=== PATIENT | female | born 1940 | race Caucasian/White ===

== ENCOUNTER 2017-03-21 14:22 | Emergency (ER) | payer MEDICARE ==
[~2017-03-21] VITALS: Ht 154.9 cm; Wt 85.9 kg
[2017-03-21 14:23] VITALS: BP 149/74; PULSE 91; RESP 22; O2SAT 92
--- NOTE | 2017-03-21 14:35 | ED.REPORT ---
HPI-Dyspnea / Wheezing Date of Service Mar 21, 2017 ED Provider: History of Present Illness: 76-year-old female here with a history of COPD with a COPD exacerbation and shortness of breath 2 days. At home they had her on up to 6 L to maintain 90%. She is usually on 2-3 L. She is coughing with minimal sputum production. Her cough is increased from her baseline. She does not have fever, nausea, vomiting and she has no chest pain. She has been intubated in the past for copd. She has done all her usual COPD meds. The albuterol seems to help for a little bit but she is continuing to have shortness of breath. Her symptoms worsen with movement and activity. Recently on 5 days of prednisone finished it a few days ago Nursing Notes Stated Complaint: SOB Chief Complaint: Respiratory Distress Nursing Notes Reviewed: Yes Allergies: Coded Allergies: morphine (Verified Allergy, Intermediate, 03/21/17) Scheduled Levofloxacin (Levaquin) 750 Mg Tablet 750 MG PO DAILY Prednisone (PredniSONE) 20 Mg Tablet 20 MG PO BID General Time Seen by MD: 14:34 Chief Complaint Shortness of breath, Wheezing Hx Obtained From: Patient, Spouse Arrived By: Walk-in Onset Occurred: 2 days ago Symptom Duration: Waxes and wanes Location: : None Recent Healthcare: Recent doctor visit Similar Sx Previous: Yes Past Medical History Past Medical History Notes: diabetes copd Review of Systems Review of Systems Note: SOB, wheezing. Basic Review of Systems GI: No abdominal pain, No anorexia, No nausea, No vomiting Neurologic: NL mental status, No weakness, No numbness Psychiatric: Normal thought content Constitutional: Denies: Chills, Fatigue, Fever Cardiovascular: Reports: Dyspnea on exertion, Denies: Chest pain Complete sys rev & neg: except as marked. Physical Exam Initial Vital Signs Vital Signs (First) Date Time Temp Pulse Resp B/P Pulse Ox O2 Delivery O2 Flow Rate FiO2 03/21/17 14:23 37.0 91 22 149/74 92 Nasal Cannula 6 Initial VS: Reviewed, Vital signs abnormal General/Constitutional: Awake, Alert speaking 4-5 word sentences Neck: Atraumatic, Supple, No meningismus, Full range of motion, No swelling, Non-tender, No masses Respiratory / Chest: Atraumatic Wheezing / Retractions: Positive: Wheeze insp/exp diffuse, Wheezing severe Cardiovascular: Heart rate NL, Regular rhythm, Heart sounds NL, Peripheral circulation NL Abdomen: Soft, Non-tender, No guarding, No rebound Skin: Color NL, No rash, Warm, Dry, Turgor NL Interpretation & Diagnostics Interpretation & Diagnostics: PROCEDURE: X-RAY CHEST ONE VIEW, PORTABLE ([id number]) INDICATIONS: sob TECHNIQUE: One view of the chest was acquired. COMPARISON: None. FINDINGS: Surgical changes and devices: None. Lungs and pleura: Bibasilar opacity may be infiltrates or atelectasis. No pleural effusions or pneumothorax. Lungs are clear. Mediastinum: Mediastinal contours appear normal. Heart size is normal. Bones and chest wall: No suspicious bony lesions. Overlying soft tissues appear unremarkable. IMPRESSION: Bibasilar infiltrates or atelectasis. Lab Results Interpretation Result Diagram: 03/21/17 1441 03/21/17 1441 Test 03/21/17 14:41 White Blood Count 7.4th/mm3 (3.8-10.1) Red Blood Count 4.70mil/mm3 (3.90-5.20) Hemoglobin 11.8g/dL (12.0-15.6) Hematocrit 40.3% (35.0-46.0) Mean Corpuscular Volume 85.7fL (81-100) Mean Corpuscular Hemoglobin 25.1pg (27.0-35.0) Mean Corpuscular Hemoglobin Concent 29.3% (32.0-37.0) Red Cell Distribution Width 17.1% (12.3-15.4) Platelet Count 269bil/L (150-400) Neutrophils (%) (Auto) 76.3% (40-74) Lymphocytes (%) (Auto) 7.7% (14-46) Monocytes (%) (Auto) 12.4% (4-12) Eosinophils (%) (Auto) 3.0% (0-5) Basophils (%) (Auto) 0.5% (0-3) Sodium Level 140mEq/L (134-144) Potassium Level 4.7mEq/L (3.5-5.2) Chloride Level 98mEq/L (97-108) Carbon Dioxide Level 26mmol/L (18-29) Blood Urea Nitrogen 15mg/dL (8-27) Creatinine 0.61mg/dL (0.57-1.00) Estimat Glomerular Filtration Rate 137mL/min (>59) Glucose Level 126mg/dL (60-99) Calcium Level 9.4mg/dL (8.5-10.1) Magnesium Level 1.6mg/dL (1.6-2.6) Total Bilirubin 0.2mg/dL (0.0-1.2) Aspartate Amino Transf (AST/SGOT) 21U/L (0-50) Alanine Aminotransferase (ALT/SGPT) 16U/L (0-32) Alkaline Phosphatase 106U/L (25-165) Troponin T < 0.010ug/L (0.0-0.011) Pro-B-Type Natriuretic Peptide 114.2pg/mL (0-738) Total Protein 7.3g/dL (6.4-8.4) Albumin 3.7g/dL (3.4-5.0) Re-Eval/Medical Decision Med Decision/Clinical Course Lung sounds not much improved order continuous neb. 1944- patient states she feels improved, just about at her baseline. She runs 92% on a few liters at home and the slit she has been setting here heart rate is still elevated between 90 and 100 she states this is her norm. Her lungs still have wheezes throughout. Discussed results of x-ray, will start on an antibiotic, has home nebs. Discussed red flags and when to return. Differential Diagnosis: Positive: COPD exacerbation, Pneumonia Discharge & Departure Impression: Primary Impression: COPD exacerbation Additional Impression: Pneumonia Pneumonia type: due to unspecified organism Laterality: bilateral Lung location: unspecified part of lung Qualified Code: J18.9 - Pneumonia, unspecified organism Disposition: Home Discharge Condition All VS Reviewed: Yes Condition: Stable Patient Instructions: Bacterial Pneumonia (DC), COPD (Chronic Obstructive Pulmonary Disease) (ED) Additional Instructions: Take antibiotics as prescribed, using inhalers as prescribed. Return immediately if fevers, increased shortness of breath, chest pain, altered mental status or any worsening in condition at all. Take your prednisone twice a day as discussed as well, start this tomorrow. Follow-up with your PCP or electric razor assembler in one to 2 days. Referrals: OTHER,PHYSICIAN (PCP) Joshua Montesinos EDSupervising Provider for APC: Varun Hwang MD copies to: Joshua Montesinos Linnea K ARNP Mar 21, 2017 14:35
[2017-03-21] MEDS ORDERED: Albuterol-Ipratropium 3 mL Inhalation Solution NEB ONE (14:45)
[2017-03-21] MEDS ORDERED: MethylprednisoLONE Sodium Succinate 62.5 mg/mL 2 mL Inj IVPUSH ONE (14:45)
[2017-03-21 14:54] LABS: BASOPHILS % (AUTO) 0.5 % (0-3); MONOCYTES % (AUTO) 12.4 % (4-12); Mean Corpuscular Hemoglobin 25.1 pg (27.0-35.0); Mean Corpuscular Volume 85.7 fL (81-100); NEUTROPHILS % (AUTO) 76.3 % (40-74); Platelet Count 269 bil/L (150-400)
[2017-03-21 15:18] LABS: Magnesium 1.6 mg/dL (1.6-2.6)
[2017-03-21 15:20] LABS: TROPONIN T < 0.010 ug/L (0.0-0.011)
[2017-03-21] MEDS ORDERED: Albuterol 2.5 mg/3 mL Inhalation Solution NEB ONE ×2 (15:50→16:50)
[2017-03-21 16:56] VITALS: PULSE 89; RESP 22; O2SAT 95
[2017-03-21 17:21] VITALS: BP 105/55; PULSE 95; RESP 16; O2SAT 90
--- NOTE | 2017-03-21 19:01 | DRSVH ---
PROCEDURE: X-RAY CHEST ONE VIEW, PORTABLE ([id number]) INDICATIONS: sob TECHNIQUE: One view of the chest was acquired. COMPARISON: None. FINDINGS: Surgical changes and devices: None. Lungs and pleura: Bibasilar opacity may be infiltrates or atelectasis. No pleural effusions or pneum othorax. Lungs are clear. Mediastinum: Mediastinal contours appear normal. Heart size is normal. Bones and chest wall: No suspicious bony lesions. Overlying soft tissues appear unremarkable. IMPRESSION: Bibasilar infiltrates or atelectasis. Dictated by: Jose Vázquez M.D. on 03/21/2017 at 18:59 Approved by: Jose Vázquez M.D. on 03/21/2017 at 18:59
[2017-03-21 19:57] VITALS: BP 132/95; PULSE 108; RESP 20; O2SAT 92
[2017-03-21] MEDS ORDERED: levoFLOXacin 750 mg Tablet PO ONE (20:05)
[2017-03-21] MEDS ORDERED: LEVO750T9 PO (20:10)
[2017-03-21] MEDS ORDERED: PRE20 PO (20:11)
== END 2017-03-21 20:18 | disposition home or self-care (01) ==
LOC: SED 14:22
DX: J44.1 Chronic obstructive pulmonary disease with (acute) exacerbation (principal); J18.9 Pneumonia, unspecified organism; E11.9 Type 2 diabetes mellitus without complications; Z88.5 Allergy status to narcotic agent; Z79.899 Other long term (current) drug therapy
CPT/HCPCS: 71010; 80053; 83735; 83880; 84484; 85025; 93005; 94644; 96374; 99285; G0463; J2930; J7613; J7620

== ENCOUNTER 2017-03-23 15:15 | Inpatient (IN) | payer MEDICARE ==
[~2017-03-23] VITALS: Ht 154.9 cm; Wt 87.0 kg
[~2017-03-23 15:15] MED LIST: LEVO750T9 PO; PRE20 PO
[2017-03-23 15:18] VITALS: BP 147/79; PULSE 92; RESP 24; O2SAT 89
--- NOTE | 2017-03-23 16:00 | ED.REPORT ---
HPI-Dyspnea / Wheezing Date of Service Mar 23, 2017 ED Provider: Stan Castro MD A 76 year old female with a history of COPD, diabetes mellitus, and previous admission for pneumonia requiring intubation presents to the ED complaining of SOB that began 5 days ago. She reports recent non productive cough that developed into a productive cough with clear sputum over the past few days. Patient is typically on 2-3L of O2 and is currently on 5 L of home O2. She last used her nebulizer this morning. Patient was seen in the ED on 03/21 for similar symptoms and was discharged with antibiotics. She has been taking antibiotics as prescribed. Patient denies any fevers, chills, nausea, rhinorrhea or chest pain. Nursing Notes Stated Complaint: COPD EXACERBATION Chief Complaint: Respiratory Distress Nursing Notes Reviewed: Yes Allergies: Coded Allergies: morphine (Verified Allergy, Intermediate, itchy rash all over body, ) Scheduled Albuterol Neb Soln (Albuterol Neb Soln) 2.5 Mg/3 Ml Vial.neb 2.5 MG INHALATION BID Amlodipine (Amlodipine) 5 Mg Tablet 5 MG PO QAM Budesonide (Budesonide) 1 Mg/2 Ml Ampul.neb 1 MG IH BID Bupropion ER (Bupropion ER) 200 Mg Tablet.er 200 MG PO BID Insulin Glargine,Hum.rec.anlog (Toujeo Solostar) 300 Unit/Ml (1.5 Ml) Insuln.pen 140 UNIT SQ HS Levofloxacin (Levaquin) 750 Mg Tablet 750 MG PO DAILY Liraglutide (Victoza 3-Keagan) 0.6 Mg/0.1 Ml Pen.injctr 0.6 MG SQ HS Metformin ER (Metformin ER) 500 Mg Tablet 1,000 MG PO BIDWM Metoprolol Tartrate (Metoprolol Tartrate) 25 Mg Tablet 25 MG PO QAM Omeprazole (Omeprazole) 20 Mg Capsule.dr 20 MG PO QAM Pramipexole Dihydrochloride (Mirapex) 0.25 Mg Tablet 0.25 MG PO BIDWM PRAMIPEXOLE 0.25 MG (1 TABLET) IN AM AND AFTERNOON AND 0.5 MG (2 TABLET)AT HS Pramipexole Dihydrochloride (Pramipexole Dihydrochloride) 0.25 Mg Tablet 0.5 MG PO HS PRAMIPEXOLE 0.25 MG (1 TABLET) IN AM AND AFTERNOON AND 0.5 MG (2 TABLET)AT HS Pravastatin (Pravastatin) 80 Mg Tablet 80 MG PO HS Prednisone (PredniSONE) 20 Mg Tablet 20 MG PO BIDWM Tiotropium [place] (Spiriva) 18 Mcg Cap.w.dev 18 MCG IH QAM Scheduled PRN Clobetasol Propionate (Clobetasol Propionate) 50 Ml Solution 1 APPLIC TP DAILY PRN PRN DRY PATCH TO DRY PATCH ON SCALP Dextran 70/Hypromellose/Pf (Artificial Tears Drops) 1 Each Droperette 2 DROP BOTH_EYES Q2H PRN PRN DRY EYES Furosemide (Furosemide) 40 Mg Tablet 40 MG PO QAM PRN PRN EDEMA Ibuprofen (Ibuprofen) 200 Mg Capsule 400 MG PO DAILY PRN PRN For Headache General Time Seen by MD: 15:55 Chief Complaint Shortness of breath Hx Obtained From: Patient Arrived By: Walk-in Sudden in Onset?: No Onset Occurred: 5 days ago Symptom Duration: Since onset Location: : None Associated with: Reports: Cough, Denies: Chest pain, Fever, Nasal congestion Pertinent Negative: Pt denies other symptoms Recent Healthcare: No recent doctor visit, No recent hospitalization Past Medical History Past Medical History Diabetes mellitus COPD Pneumonia x2 requiring hospitalization and intubation Obesity Denies: Congestive heart failure Past Surgical History Valve replacement Smoking History Former Smoker (2005) Social History Other Social History: Good social support, Local resident Ambulatory Status Independent Review of Systems Constitutional: Denies: Chills, Fever Ears / Nose / Throat: Denies: Nasal congestion Respiratory: Reports: Non-productive cough, Prod cough, clear, Shortness of breath, Wheezing Cardiovascular: Denies: Chest pain Complete sys rev & neg: except as marked. Physical Exam Initial Vital Signs Vital Signs (First) Date Time Temp Pulse Resp B/P Pulse Ox O2 Delivery O2 Flow Rate FiO2 03/23/17 15:18 37.5 92 24 147/79 89 Nasal Cannula 5 Initial VS: Reviewed Head / Eyes: Atraumatic, Normocephalic, PERRL Extremities: Vascular intact, Neuro intact, No swelling, No tenderness Skin: Warm, Dry, No cyanosis Neurologic: Alert, Oriented, Nonfocal Psychiatric: Mood/affect normal, Behavior normal, Normal thought content General/Constitutional: Awake, Alert, Well appearing, Well developed Neck: Atraumatic, Supple, Full range of motion Respiratory / Chest: Atraumatic, Breath sounds = bilat Wheezing / Retractions: Positive: Wheeze insp/exp diffuse (Bilateral ) Cardiovascular: Heart rate NL, Regular rhythm, Heart sounds NL, No murmurs Abdomen: Atraumatic, Soft, Non-tender, No guarding, No rebound Interpretation & Diagnostics Lab Results Interpretation Result Diagram: 03/23/17 1645 03/23/17 1645 Test 03/23/17 16:45 White Blood Count 8.3th/mm3 (3.8-10.1) Red Blood Count 4.59mil/mm3 (3.90-5.20) Hemoglobin 11.6g/dL (12.0-15.6) Hematocrit 39.5% (35.0-46.0) Mean Corpuscular Volume 86.1fL (81-100) Mean Corpuscular Hemoglobin 25.3pg (27.0-35.0) Mean Corpuscular Hemoglobin Concent 29.4% (32.0-37.0) Red Cell Distribution Width 17.0% (12.3-15.4) Platelet Count 292bil/L (150-400) Neutrophils (%) (Auto) 79.3% (40-74) Lymphocytes (%) (Auto) 12.4% (14-46) Monocytes (%) (Auto) 7.0% (4-12) Eosinophils (%) (Auto) 0.6% (0-5) Basophils (%) (Auto) 0.5% (0-3) Sodium Level 138mEq/L (134-144) Potassium Level 5.0mEq/L (3.5-5.2) Chloride Level 95mEq/L (97-108) Carbon Dioxide Level 27mmol/L (18-29) Blood Urea Nitrogen 24mg/dL (8-27) Creatinine 0.77mg/dL (0.57-1.00) Estimat Glomerular Filtration Rate 104mL/min (>59) Glucose Level 89mg/dL (60-99) Calcium Level 9.8mg/dL (8.5-10.1) Magnesium Level 1.6mg/dL (1.6-2.6) Total Bilirubin 0.2mg/dL (0.0-1.2) Aspartate Amino Transf (AST/SGOT) 21U/L (0-50) Alanine Aminotransferase (ALT/SGPT) 17U/L (0-32) Alkaline Phosphatase 97U/L (25-165) Troponin T < 0.010ug/L (0.0-0.011) Pro-B-Type Natriuretic Peptide 205.5pg/mL (0-738) Total Protein 7.1g/dL (6.4-8.4) Albumin 3.6g/dL (3.4-5.0) Procalcitonin 0.07ng/mL (0.00-0.08) Hold Whitman Top Tube Received (Received) ECG Interpretation ECG Interpretation: Sinus Rhythm Rate 90 No STT changes Q wave in V1 unchanged from prior Time: 04:22 Interpreted by: ED physician X-Ray Chest Interpretation Chest Xray Interpretation: IMPRESSION: Slight improvement in previous bibasilar opacities with persistent linear opacities. The latter likely represents atelectasis. Persistent. The bibasilar opacities including within the retrocardiac region are suspicious for infiltrates. Dictated by: Gina Newell M.D. on 03/23/2017 at 16:45 Interpretation / Wet Read by: Interpret - Radiologist Re-Eval/Medical Decision Med Decision/Clinical Course 76-year-old female history of COPD presenting with pneumonia. She is on 2-3 L oxygen at home with sats ranging from 88-92 at baseline. Reports 4 days of cough and dyspnea. She is requiring 5 L to sat within 88-92% range. She has a bibasilar pneumonia. She was started on Levaquin 2 days ago. She refuses to be admitted at that time. She is now requesting admission. We will admit for pneumonia given increasing oxygen requirements. Given Rocephin and azithromycin. Blood cultures sent. Also with wheezing on exam. Given Solu-Medrol to cover for COPD exacerbation. Re-Evaluation/Progress : Time of Eval: 16:17 )( Re-Eval Resp / Chest: Moderate wheezing Re-Evaluation/Progress Note: Patient is rechecked. She is informed of her results and diagnosis. All questions about the intended treatment plan are addressed. She understands and agrees with the plan. Consultation : Referral / Consult Name: Rasta Mercado Consulted With: Hospitalist Call Returned at: 17:54 Medical Associate: Will see patient, Agrees with eval, Agrees with plan, Accepts admit Counseled Regarding: Diagnosis, Lab results, Need for admission Discharge & Departure Impression: Primary Impression: Pneumonia Pneumonia type: due to unspecified organism Laterality: bilateral Lung location: lower lobe of lung Qualified Code: J18.9 - Pneumonia, unspecified organism Additional Impression: COPD exacerbation Disposition: ADMITTED TO HOSPITAL Discharge Condition All VS Reviewed: Yes Condition: Stable Referrals: Joshua Montesinos (PCP) Christine Attestation Portions of this note were transcribed by Keenan Weller. I, Dr. Castro personally performed the history, physical exam and medical decision-making; I reviewed and confirmed the accuracy of the information in the transcribed note. Signed by: Chirstine Cruz, 03/23/17 1560. copies to: Joshua Montesinos Ben M MD Mar 23, 2017 16:00 KEENAN WELLER Mar 23, 2017 16:06
[2017-03-23] MEDS ORDERED: cefTRIAXone Inj 2,000 MG in Dextrose 5% Minibag Plus 50 ML IV ONE (16:10)
[2017-03-23] MEDS ORDERED: Azithromycin Inj 500 MG in Dextrose 5% w/Vial Mate 250 ML IV ONE (16:10)
[2017-03-23] MEDS ORDERED: MethylprednisoLONE Sodium Succinate 62.5 mg/mL 2 mL Inj IVPUSH ONE (16:10)
[2017-03-23] MEDS ORDERED: Albuterol-Ipratropium 3 mL Inhalation Solution NEB ONE (16:10)
[2017-03-23 16:40] VITALS: PULSE 89; RESP 20; O2SAT 90
--- NOTE | 2017-03-23 16:47 | DRSVH ---
PROCEDURE: X-RAY CHEST, TWO VIEWS ([id number]) INDICATIONS: SOB - DIAGNOSIS PNEUM TECHNIQUE: 2 views of the chest were acquired. COMPARISON: [facility], CR, XR CHEST 1VW (PORTABLE), 03/21/2017, 15:10. FINDINGS: Surgical changes and devices: Prosthetic valve is noted. Lungs and pleura: Linear areas of opacity are present within the bases bilaterally. Previous appearan ce of bibasilar opacities appear slightly improved, with with the persistence of a retrocardiac opaci ty. Mediastinum: Mediastinal contours are normal. Heart size is normal. Bones and chest wall: No suspicious bony abnormalities. Soft tissues appear unremarkable. IMPRESSION: Slight improvement in previous bibasilar opacities with persistent linear opacities. The latter likely represents atelectasis. Persistent. The bibasilar opacities including within the retroc ardiac region are suspicious for infiltrates. Dictated by: Gina Newell M.D. on 03/23/2017 at 16:45 Approved by: Gina Newell M.D. on 03/23/2017 at 16:46
[2017-03-23 16:59] LABS: BASOPHILS % (AUTO) 0.5 % (0-3); EOSINOPHILS % (AUTO) 0.6 % (0-5); Mean Corpuscular Hemoglobin 25.3 pg (27.0-35.0); Mean Corpuscular Volume 86.1 fL (81-100); NEUTROPHILS % (AUTO) 79.3 % (40-74); Platelet Count 292 bil/L (150-400)
[2017-03-23] MEDS ORDERED: PRE20 PO (17:10)
[2017-03-23] MEDS ORDERED: PRAM0.252 PO (17:10)
[2017-03-23] MEDS ORDERED: PRAM0.256 PO (17:10)
[2017-03-23 17:26] LABS: TROPONIN T < 0.010 ug/L (0.0-0.011)
[2017-03-23] MEDS ORDERED: BUDE1AMP2 IH (17:28)
[2017-03-23] MEDS ORDERED: OMEP20CA11 PO (17:28)
[2017-03-23] MEDS ORDERED: BUPR200T PO (17:28)
[2017-03-23] MEDS ORDERED: CLOB50SO TP (17:28)
[2017-03-23] MEDS ORDERED: PRAV80TA2 PO (17:28)
[2017-03-23] MEDS ORDERED: TIOT18CA3 IH (17:28)
[2017-03-23] MEDS ORDERED: ALBU2.5V4 INHALATION (17:28)
[2017-03-23] MEDS ORDERED: METF500T7 PO (17:28)
[2017-03-23] MEDS ORDERED: AMLO5TAB2 PO (17:31)
[2017-03-23] MEDS ORDERED: INSU300I SQ (17:31)
[2017-03-23] MEDS ORDERED: METO50TA3 PO (17:31)
[2017-03-23] MEDS ORDERED: LIRA0.6P2 SQ (17:31)
[2017-03-23] MEDS ORDERED: METO25TA6 PO (17:32)
[2017-03-23] MEDS ORDERED: FURO40TA4 PO (17:33)
[2017-03-23] MEDS ORDERED: IBUP200C PO (17:34)
[2017-03-23] MEDS ORDERED: DEXT1DRO8 BOTH_EYES (17:34)
[2017-03-23] MEDS ORDERED: Alum-Mag Hydrox-Simeth 30 mL Suspension PO PRN ×2 (17:55→20:40)
[2017-03-23] MEDS ORDERED: Ondansetron 2 mg/mL 2 mL Inj IVPUSH PRN (17:55)
[2017-03-23 18:03] VITALS: BP 129/71; PULSE 88; RESP 19; O2SAT 88
[2017-03-23 18:25] VITALS: BP 136/72; PULSE 88; RESP 23; O2SAT 89
[2017-03-23 19:20] VITALS: BP 133/68; PULSE 98; O2SAT 88
[2017-03-23 19:26] VITALS: PULSE 97
--- NOTE | 2017-03-23 19:45 | PCM.HPMED ---
Subjective Date of Service Mar 23, 2017 Primary Provider: Admitting Physician: Rasta Mercado Primary Care Physician: Joshua Montesinos Attending Physician: Rasta Mercado Admit Status: From the Emergency Department Chief Complaint: Dyspnea, SOB, productive cough or clear sputum X 5 days History of Present Illness: Sharda is a pleasant 76 y/o F with a hx of COPD, diabetes mellitus, and history of previous admission for pneumonia year ago in 2016 requiring intubation, and then again hospitalized in September 2016 for COPD exacerbation and pneumonia, who presented to the ED complaining of SOB and dyspnea with associated cough productive clear sputum that began 5 days ago. Patient reports her cough initially began on Wednesday as a non productive cough that developed into a productive cough. Patient is typically on 2-3L of O2 at home at baseline, but now is on 5 L of home O2. She states that nebulizers help and she last used it prior to admission this morning with some improvement in her symptoms. She states that her symptoms are very similar to what she experienced on prior hospitalizations. Of note patient was seen in the ED on for same complaint and states that she begged the ER doc to let her go home. She states she later regretted this and realize she should have stayed in the hospital. Patient was sent home on Levaquin. Patient states her symptoms have made it difficult for her to sleep. Patient sleeps propped up in bed. Patient lives at home with her Fahad. She has been taking antibiotics as prescribed. Patient denies any recent travel, known history of TB, fevers, chills, nausea, vomiting, sore throat, sweats, sick contacts, body aches, abdominal pain, diarrhea, constipation,chest pain. CXR showed:Improvement in previous bibasilar opacities with persistent linear opacities. The latter likely represents atelectasis. Persistent. The bibasilar opacities including within the retrocardiac region are suspicious for infiltrates. In the ED, Vital signs showed: Temperature 37.5, pulse 92, respiratory rate 24, blood pressure 147/79, O2 percent 89 on 5 L nasal cannula Patient was started on medication ceftriaxone 2000 mg every 24 and azithromycin 500 mg. She was also given methyl Pred 125 mg once, Hemogram showed: WBC 8.3, H/H9.6/39.5, platelets 272, 79.3% PMNs and 12.4% lymphs. Chemistry panel otherwise normal, normal troponin, proBNP was 205, no procalcitonin available. Review of Systems: A comprehensive review of systems was conducted and was negative except as mentioned in history of present illness. Allergies Coded Allergies: morphine (Verified Allergy, Intermediate, itchy rash all over body, ) Home Medications Albuterol Neb Soln (Albuterol Neb Soln) 2.5 Mg/3 Ml Vial.neb 2.5 MG INHALATION BID Amlodipine (Amlodipine) 5 Mg Tablet 5 MG PO QAM Budesonide (Budesonide) 1 Mg/2 Ml Ampul.neb 1 MG IH BID Bupropion ER (Bupropion ER) 200 Mg Tablet.er 200 MG PO BID Insulin Glargine,Hum.rec.anlog (Toujeo Solostar) 300 Unit/Ml (1.5 Ml) Insuln.pen 140 UNIT SQ HS Levofloxacin (Levaquin) 750 Mg Tablet 750 MG PO DAILY Liraglutide (Victoza 3-Keagan) 0.6 Mg/0.1 Ml Pen.injctr 0.6 MG SQ HS Metformin ER (Metformin ER) 500 Mg Tablet 1,000 MG PO BIDWM Metoprolol Tartrate (Metoprolol Tartrate) 25 Mg Tablet 25 MG PO QAM Omeprazole (Omeprazole) 20 Mg Capsule.dr 20 MG PO QAM Pramipexole Dihydrochloride (Mirapex) 0.25 Mg Tablet 0.25 MG PO BIDWM PRAMIPEXOLE 0.25 MG (1 TABLET) IN AM AND AFTERNOON AND 0.5 MG (2 TABLET)AT HS Pramipexole Dihydrochloride (Pramipexole Dihydrochloride) 0.25 Mg Tablet 0.5 MG PO HS PRAMIPEXOLE 0.25 MG (1 TABLET) IN AM AND AFTERNOON AND 0.5 MG (2 TABLET)AT HS Pravastatin (Pravastatin) 80 Mg Tablet 80 MG PO HS Prednisone (PredniSONE) 20 Mg Tablet 20 MG PO BIDWM Tiotropium [place] (Spiriva) 18 Mcg Cap.w.dev 18 MCG IH QAM PRN Clobetasol Propionate (Clobetasol Propionate) 50 Ml Solution 1 APPLIC TP DAILY PRN PRN DRY PATCH TO DRY PATCH ON SCALP Dextran 70/Hypromellose/Pf (Artificial Tears Drops) 1 Each Droperette 2 DROP BOTH_EYES Q2H PRN PRN DRY EYES Ibuprofen (Ibuprofen) 200 Mg Capsule 400 MG PO DAILY PRN PRN For Headache PMH Diabetes mellitus on Lantus and metformin COPD with history of 2 hospitalizations in the past year Pneumonia x2 hospitalization and requiring intubation one year ago in 2016 Obesity Surgical History Aortic Valve replacement 2015 Family History Father at age 70 secondary to heart failure from alcohol Mother of colon cancer at age 60 patient has a brother who is healthy Social History Hx Alcohol Use: No Hx Substance Use: No Hx Tobacco Use: Yes Smoking Status: Former Smoker (2005 , used to smoke 5-6 cigarettes per day for 30 years) Living Arrangement: with Family (with , ) Exam Vital Signs Vital Sign - Last Date Time Temp Pulse Resp B/P Pulse Ox O2 Delivery O2 Flow Rate FiO2 03/23/17 19:20 36.8 98 133/68 88 Nasal Cannula 4.00 03/23/17 18:25 23 Exam General: Patient is moderately obese and alert and oriented 3 date, self, and location, she is speaking in short 2-3 word sentences catching her breath between sentences. She appears in mild to moderate respiratory distress. HEENT: NC/AT, eyes, PERRLA, EOMI, neck, soft supple, no adenopathy, no JVD, no masses, no thyromegaly, throat mucous membranes pink and moist, no erythema, no exudates, no tonsillar swelling, no uvular deviation. He think and repair Lungs: With bilateral expiratory wheezes, but sounding lungs with considerable rhonchi, no crackles heard, some use of accessory muscles of respiration, poor air movement unless patient uses great effort to exhale. Heart: Regular rate and rhythm, no murmur, S1-S2 present, no rub, no click, no distant heart sounds, Abdomen: Soft, nontender, nondistended, bowel sounds active, no rebound, no guarding, Genitourinary: No CVA tenderness, no suprapubic tenderness, no Nunez catheter, Extremities: Pulses equal and symmetric upper/lower extremity including radial and dorsalis pedis, no edema Neurologic: Grossly neurologically intact, speaking in 2-3 sentences, no focal neurological signs. Skin: Warm dry and rash free Psychiatric: mood and affect are congruent and appropriate. Lab and Diagnostics Result Diagram: 03/23/17 1645 03/23/17 1645 X-Rays, CTs and MRIs Date of Service: 03/23/17 1600 PROCEDURE: X-RAY CHEST, TWO VIEWS INDICATIONS: SOB - DIAGNOSIS PNEUM FINDINGS: Surgical changes and devices: Prosthetic valve is noted. Lungs and pleura: Linear areas of opacity are present within the bases bilaterally. Previous appearance of bibasilar opacities appear slightly improved , with with the persistence of a retrocardiac opacity. Mediastinum: Mediastinal contours are normal. Heart size is normal. Bones and chest wall: No suspicious bony abnormalities. Soft tissues appear unremarkable. IMPRESSION: Slight improvement in previous bibasilar opacities with persistent linear opacities. The latter likely represents atelectasis. Persistent. The bibasilar opacities including within the retrocardiac region are suspicious for infiltrates. Dictated by: Gina Newell M.D. on 03/23/2017 at 16:45 Approved by: Gina Newell M.D. on 03/23/2017 at 16:46 Assessment & Plan This is a pleasant 76-year-old female with history of COPD on home oxygen 2 L at baseline, diabetes mellitus and prior hospitalizations for COPD exacerbation and pneumonia requiring intubation who presented to the ED with 5 days of productive cough clear sputum and shortness of breath and dyspnea. Patient chest x-ray showed bibasilar opacities and retrocardiac infiltrate. Patient was admitted for acute COPD exacerbation and community acquired pneumonia. # Pneumonia, likely CAP, Present on Admission, active -Patient is on 2 L of home oxygen at baseline -WBC 8.3 on admission with no signs of left shift -Chemistry panel otherwise normal, normal troponin, proBNP was 205, no procalcitonin available. -Vital signs showed: Temperature 37.5, pulse 92, respiratory rate 24, blood pressure 147/79, O2 percent 89 on 5 L nasal cannula -CBC with Diff, CMP, ordered and pending for the morning -CXR showed: bibasilar opacities including within the retrocardiac region are suspicious for infiltrates. -Sputum ordered and pending -We will order Blood Cx X 2, cultures not completed in the ED prior to antibiotics treatment given -Procalcitonin ordered and pending -Continue medication Ceftriaxone 2 g every 24 + Azithromycin 500 mg initiated in ED -We will get MRSA screen -Acetominophen for Fever control -IV Saline fluids as needed -Legionella urine antigen, and Strep pneumonia urine antigen ordered and pending -Viral PCR (biofire) ordered and pending -Influenzae A/B ordered and pending # Acute COPD exacerbation, present on admission. Of note patient was seen in the ED on 03/21/2017 and given course of antibiotics and discharged home only to return on the and was admitted for COPD exacerbation and acute immune and required pneumonia -Sputum culture ordered as previously stated. -Consider ABG if needed -Continue supplemental oxygen as needed and slowly titrate off. Goal SpO2 88% - 92%. -Given Solu-medrol 125 mg x 1 in the emergency department. -Start 40 mg prednisone daily x 5 days. -Continue antibiotics including ceftriaxone and azithromycin (for atypical coverage). As previously stated -Continue duo nebs 4 times a day while awake and albuterol nebs every 2 hours for shortness of breath. # Anemia, normocytic, hypochromic,chronicity unknown, present on admission, active - H/H9.6/39.5, MCH 25.3, MCHC 29.4, MCV 86.1 - Continue to monitor #Obesity, presumed stable -Patient denies recent weight gain or weight loss #Diabetes mellitus -We will hold home medication metformin -We will hold home medication Victoza -We will continue medication insulin glargine (Toujeo) -We will start low-dose correctional scale insulin -We will get hemoglobin A1c # Hypertension, presumed stable -Continue home medication metoprolol tartrate 25 mg by mouth in the morning -Continue medication amlodipine 5 mg Daily # Hyperlipidemia, presumed stable - Continue Medication pravastatin # Acid reflux - Continue home medication omeprazole 20 mg daily Disposition: Admitted to in patient service with expected length of stay greater than 2 days, secondary to severity of presenting symptoms, treatment plan, complexity of clinical work up, and risk of adverse events. CODE STATUS: Full code PCP: Joshua Montesinos DVT PE prophylaxis: SubQ heparin Q8H Contact: Fahad [phone] Pain Evaluation: Other (no pain) VTE Prophylaxis: Sub-Q Heparin (Unfractionated) Resuscitation Status: CPR: Attempt Resuscitation Attending Statement The patient was seen and examined together with house staff on 03/24/2017 and I agree with the history, exam and plan as outlined in the note above. Tuan Luo DO Mar 23, 2017 19:44 Anita Contreras DO Mar 24, 2017 02:35
[2017-03-23 20:27] LABS: APPEARANCE,URINE CLEAR (CLEAR,HAZY); COLOR,URINE YELLOW (YELLOW); OCCULT BLOOD,URINE NEGATIVE (NEGATIVE); UROBILINOGEN,URINE NORMAL (NORMAL); YEAST,URINE MANY (NONE SEEN)
[2017-03-23] MEDS ORDERED: Glucose 40% Oral Gel 15 Gm Tube PO PRN (20:40)
[2017-03-23] MEDS ORDERED: Polyethylene Glycol (PEG) 17 Gm Powder PO PRN (20:40)
[2017-03-23] MEDS ORDERED: Dextrose 10% 250 ML IV ONE (20:40)
[2017-03-23 21:16] LABS: Magnesium 1.6 mg/dL (1.6-2.6)
[2017-03-23] MEDS: Insulin LISPRO 300 Unit/3 mL Inj SUBQ SCH (21:54)
[2017-03-23] MEDS ORDERED: Dextrose 10% 250 ML IV PRN (22:00)
--- NOTE | 2017-03-23 22:05 | NUR ---
Admit Patient admitted to room 3008 at 1840 from ED. Alert and oriented. Telemetry connected. paged for orders, in to see patient at about 1945. White board updated, oriented to room, call light, plan of care, policies, intentional rounding. On 5L and continuous pulse oximeter, 86-90%. Call light within reach, patient is using appropriately.
[2017-03-24] VITALS (12 sets, daily range): BP systolic 114–163; BP diastolic 64–81; PULSE 74–104; RESP 18–24; O2SAT 88–94
[2017-03-24] MEDS: Albuterol-Ipratropium 3 mL Inhalation Solution NEB SCH ×6 (00:44→19:57)
[2017-03-24] MEDS: Heparin 5,000 Unit/mL Inj SUBQ SCH ×3 (02:05→16:34)
--- NOTE | 2017-03-24 03:12 | NUR ---
Transfer of care Transferred RN care to Aiden Parekh RN at 0300.
--- NOTE | 2017-03-24 05:10 | NUR ---
Assumed Care: Assumed care of this pt around 0300; pt resting comfortably in bed with eyes closed, no s/s of distress. This am pt has requested cough medicine; call placed to MD, awaiting call back. Pt pleasant and cooperative with care.
[2017-03-24 05:52] LABS: BASOPHILS % (AUTO) 0.3 % (0-3); EOSINOPHILS % (AUTO) 0 % (0-5); MONOCYTES % (AUTO) 6.2 % (4-12); Mean Corpuscular Volume 85.5 fL (81-100); NEUTROPHILS % (AUTO) 83.3 % (40-74); Platelet Count 296 bil/L (150-400)
[2017-03-24] MEDS: Pantoprazole 40 mg ER24 Tablet PO SCH (06:28)
[2017-03-24] MEDS: predniSONE 20 mg Tablet PO SCH (08:41)
[2017-03-24] MEDS: Insulin LISPRO 300 Unit/3 mL Inj SUBQ SCH ×4 (08:42→21:21)
[2017-03-24] MEDS: cefTRIAXone Inj 2,000 MG in Dextrose 5% Minibag Plus 50 ML IV SCH (08:43)
[2017-03-24] MEDS: buPROPion SR 100 mg ER12 Tablet PO SCH ×2 (08:44→20:24)
[2017-03-24] MEDS: Clobetasol Prop 0.05% 15 Gm Ointment TOPICAL SCH ×2 (08:45→20:26)
[2017-03-24] MEDS: Azithromycin Inj 500 MG in Dextrose 5% w/Vial Mate 250 ML IV SCH (10:05)
--- NOTE | 2017-03-24 14:48 | NUR ---
Social Work-initial assessment: Data:See initial assessment. Pt is a 76 y/o female who was admitted on 03/23/17 for COPD exacerbation per H&P. Pt's insurance is [employer] and PCP [facility]. EMR reviewed. Pt's readmission score is 4-high risk. SW met with pt at bedside to discuss discharge planning, SW role explained. Pt is alert and oriented x3. Pt resides at home with her in a single level home where she remains independent with ADLS. Pt drives and does not use any DME. Pt uses home O2 through [place]. Pt has no HH or SNF history. Pt has no intermodal dispatcher care insurance or VA benefits. SW discussed DPOA/ advanced directive, pt confirms she has not completed this and is not interested in any information. Pt confirms her will provide transport home at discharge. SW provided phone number and plan on white board in room. No anticipated discharge needs. SW will continue to follow if needs arise. Assessment:pt who is independent at baseline. Plan:Pt to discharge home when medically stable via POV. No anticipated discharge needs. SW will continue to follow if needs arise. JAYDON Blackwell Addendum: 03/24/17 at 1451 by YEISON GAITAN Amended: Links added.
--- NOTE | 2017-03-24 15:58 | NUR ---
NURSING DAYS 7-7, 03/24 Patient is on 4L NC, cough, nebs, and positive for parainfluenza III, sputum sample sent. Patient receiving IV antibiotics, SBA commode, telemetry SR 90, ADA diet A1c is 9.1, and pulse ox at night. S/L, blood cultures pending, Hx of PNE, LOC x3, and on droplet and contact precautions. Plan to continue antibiotics, monitor O2, and d/c 1-2 days.
--- NOTE | 2017-03-24 16:43 | PCM.PNMED ---
Subjective Date of Service Mar 24, 2017 Subjective Breathing feels better but still not back to baseline. Denies any other new issues/complaints Exam Vital Signs Vital Sign - Last Date Time Temp Pulse Resp B/P Pulse Ox O2 Delivery O2 Flow Rate FiO2 03/24/17 16:01 74 20 93 Nasal Cannula 5.00 03/24/17 13:58 37.4 114/64 Intake and Output 03/23/17 03/23/17 03/24/17 Cumulative From/Thru 14:59 22:59 06:59 03/23/17 15:18 - 03/24/17 05:57 Intake Total 250 ml 200 ml 450 ml Output Total 300 ml 300 ml Balance 250 ml -100 ml 150 ml Intake Oral 200 ml 200 ml IV Total 250 ml 250 ml Output Urine Total 300 ml 300 ml # Bowel Movements 1 1 General: Alert, Cooperative, No Acute Distress Head: Normal Eyes: PERRLA, EOMI, Scleral Anicteric Nose: Mucous Membr Moist/[place] Mouth: Mucous Membranes Dry Neck: Supple Chest & Lungs: Chest Wall Normal, Inspiratory wheezes (mild bilat), Expiratory wheezes (bilat) Cardiovascular: Regular Rate/Rhythm Pulses: NL carotid, radial, femoral, DP, PT Abdomen: Non-tender, Non-distended, Normoactive bowel tones, Soft Extremities: No cyanosis/clubbing/edma bilat Neurological: Grossly Neurologically Intact, Normal Speech IVs and Medications Medications Reviewed: Medications were reviewed in detail Lab and Diagnostics Result Diagram: 03/24/17 0522 03/24/17 0522 X-Rays, CTs and MRIs Date of Service: 03/23/17 1600 PROCEDURE: X-RAY CHEST, TWO VIEWS INDICATIONS: SOB - DIAGNOSIS PNEUM FINDINGS: Surgical changes and devices: Prosthetic valve is noted. Lungs and pleura: Linear areas of opacity are present within the bases bilaterally. Previous appearance of bibasilar opacities appear slightly improved , with with the persistence of a retrocardiac opacity. Mediastinum: Mediastinal contours are normal. Heart size is normal. Bones and chest wall: No suspicious bony abnormalities. Soft tissues appear unremarkable. IMPRESSION: Slight improvement in previous bibasilar opacities with persistent linear opacities. The latter likely represents atelectasis. Persistent. The bibasilar opacities including within the retrocardiac region are suspicious for infiltrates. Dictated by: Gina Newell M.D. on 03/23/2017 at 16:45 Approved by: Gina Newell M.D. on 03/23/2017 at 16:46 Assessment & Plan 76-year-old female with history of COPD on home oxygen 2 L at baseline, diabetes mellitus and prior hospitalizations for COPD exacerbation and pneumonia requiring intubation who presented to the ED with 5 days of productive cough clear sputum and shortness of breath and dyspnea. Patient chest x-ray showed bibasilar opacities and retrocardiac infiltrate. Patient was admitted for acute COPD exacerbation and community acquired pneumonia. # Pneumonia, likely CAP, Present on Admission, active -Patient is on 2 L of home oxygen at baseline -Continue Ceftriaxone 2 g every 24 + Azithromycin 500 mg initiated in ED -Viral PCR also positive for parainfluenza 3. ? If super imposed on top of bacterial pneumonia vs primary and only source of infection # Acute COPD exacerbation, present on admission. -Continue supplemental oxygen as needed and slowly titrate off. Goal SpO2 88% - 92%. -Given Solu-medrol 125 mg x 1 in the emergency department. -Continue 40 mg prednisone daily x 5 days. -Continue antibiotics including ceftriaxone and azithromycin. As previously stated. Will discuss with ID in am regarding duration of Abx given viral PCR positive as well. -Continue duo nebs 4 times a day while awake and albuterol nebs every 2 hours for shortness of breath. # Acute on chronic hypoxic respiratory failure. Present on admission. Ongoing - 2ndry to pneumonia and COPD exacerbation noted above - Continue with above management # Anemia, normocytic, hypochromic,chronicity unknown, present on admission. Stable. - Continue to monitor # Obesity, presumed stable - Patient denies recent weight gain or weight loss # Diabetes mellitus - Hold home medication metformin and Victoza - Continue medication insulin glargine (Toujeo) - Continue low-dose correctional scale insulin - HgA1C # Hypertension, presumed stable - Continue home medication metoprolol tartrate 25 mg by mouth in the morning - Continue medication amlodipine 5 mg Daily # Hyperlipidemia, presumed stable - Continue Medication pravastatin # Acid reflux - Continue home medication omeprazole 20 mg daily Disposition: Home in 2-3 days VTE Prophylaxis: Sub-Q Heparin (Unfractionated) Resuscitation Status: CPR: Attempt Resuscitation Rasta Mercado Mar 24, 2017 16:43
[2017-03-24] MEDS ORDERED: Insulin GLARgine 100 Unit/mL Syringe SUBQ SCH (21:00)
[2017-03-24] MEDS: Insulin GLARgine 100 Unit/mL Syringe SUBQ SCH (21:20)
[2017-03-25] VITALS (13 sets, daily range): BP systolic 147–170; BP diastolic 72–77; PULSE 80–106; RESP 18–20; O2SAT 88–93
[2017-03-25] MEDS: Heparin 5,000 Unit/mL Inj SUBQ SCH ×3 (00:40→17:44)
[2017-03-25] MEDS: Albuterol-Ipratropium 3 mL Inhalation Solution NEB SCH ×6 (00:48→20:31)
[2017-03-25] MEDS: Albuterol 2.5 mg/3 mL Inhalation Solution NEB PRN (02:37)
[2017-03-25] MEDS: Pantoprazole 40 mg ER24 Tablet PO SCH (05:49)
[2017-03-25] MEDS: Insulin LISPRO 300 Unit/3 mL Inj SUBQ SCH ×4 (08:00→21:47)
[2017-03-25] MEDS: predniSONE 20 mg Tablet PO SCH (08:32)
[2017-03-25] MEDS: buPROPion SR 100 mg ER12 Tablet PO SCH ×2 (08:33→20:27)
[2017-03-25] MEDS: cefTRIAXone Inj 2,000 MG in Dextrose 5% Minibag Plus 50 ML IV SCH (08:33)
[2017-03-25] MEDS: Azithromycin Inj 500 MG in Dextrose 5% w/Vial Mate 250 ML IV SCH (08:34)
[2017-03-25] MEDS: Clobetasol Prop 0.05% 15 Gm Ointment TOPICAL SCH ×2 (08:34→20:28)
[2017-03-25] MEDS: Insulin GLARgine 100 Unit/mL Syringe SUBQ SCH ×2 (08:37→21:47)
[2017-03-25] MEDS: Artificial Tears 15 mL Ophthalmic Solution BOTH_EYES PRN (08:41)
--- NOTE | 2017-03-25 14:46 | PCM.PNMED ---
Subjective Date of Service Mar 25, 2017 Subjective Reports increased cough and chest tightness Exam Vital Signs Vital Sign - Last Date Time Temp Pulse Resp B/P Pulse Ox O2 Delivery O2 Flow Rate FiO2 03/25/17 11:30 85 18 92 Nasal Cannula 5.00 03/25/17 10:27 37.1 158/76 Intake and Output 03/24/17 03/24/17 03/25/17 Cumulative From/Thru 15:00 23:00 07:00 03/23/17 15:18 - 03/25/17 06:59 Intake Total 1030 ml 500 ml 1980 ml Output Total 800 ml 1100 ml Balance 230 ml 500 ml 880 ml Intake Oral 900 ml 500 ml 1600 ml IV Total 130 ml 380 ml Output Urine Total 800 ml 1100 ml # Voids 3 3 # Bowel Movements 1 0 2 Exam General: Alert, Cooperative, No Acute Distress Head: Normal Eyes: PERRLA, EOMI, Scleral Anicteric Nose: Mucous Membr Moist/[place] Mouth: Mucous Membranes Dry Neck: Supple Chest & Lungs: Chest Wall Normal, Inspiratory wheezes (mild bilat), Expiratory wheezes (bilat) Cardiovascular: Regular Rate/Rhythm Pulses: NL carotid, radial, femoral, DP, PT Abdomen: Non-tender, Non-distended, Normoactive bowel tones, Soft Extremities: No cyanosis/clubbing/edma bilat Neurological: Grossly Neurologically Intact, Normal Speech IVs and Medications Medications Reviewed: Medications were reviewed in detail Lab and Diagnostics Result Diagram: 03/24/1752103/24/17 05 X-Rays, CTs and MRIs Date of Service: 03/23/17 1600 PROCEDURE: X-RAY CHEST, TWO VIEWS INDICATIONS: SOB - DIAGNOSIS PNEUM FINDINGS: Surgical changes and devices: Prosthetic valve is noted. Lungs and pleura: Linear areas of opacity are present within the bases bilaterally. Previous appearance of bibasilar opacities appear slightly improved , with with the persistence of a retrocardiac opacity. Mediastinum: Mediastinal contours are normal. Heart size is normal. Bones and chest wall: No suspicious bony abnormalities. Soft tissues appear unremarkable. IMPRESSION: Slight improvement in previous bibasilar opacities with persistent linear opacities. The latter likely represents atelectasis. Persistent. The bibasilar opacities including within the retrocardiac region are suspicious for infiltrates. Dictated by: Gina Newell M.D. on 03/23/2017 at 16:45 Approved by: Gina Newell M.D. on 03/23/2017 at 16:46 Assessment & Plan 76-year-old female with history of COPD on home oxygen 2 L at baseline, diabetes mellitus and prior hospitalizations for COPD exacerbation and pneumonia requiring intubation who presented to the ED with 5 days of productive cough clear sputum and shortness of breath and dyspnea. Patient chest x-ray showed bibasilar opacities and retrocardiac infiltrate. Patient was admitted for acute COPD exacerbation and community acquired pneumonia. # Acute community acquired pneumonia, Present on Admission - Bacterial infection seems less likely now given negative procalcitonin and positive viral PCR - Stop Ceftriaxone and continue with Azithromycin for 5 days - Viral PCR positive for parainfluenza 3. ? If super imposed on top of bacterial pneumonia vs primary and only source of infection # Acute COPD exacerbation, present on admission. - Given Solu-medrol 125 mg x 1 in the emergency department. - Continue 40 mg prednisone daily x 5 days. - Continue azithromycin as noted above. - Continue duo nebs and albuterol nebs as needed # Acute on chronic hypoxic respiratory failure. Present on admission. Ongoing - 2ndry to pneumonia and COPD exacerbation noted above - Continue supplemental oxygen as needed and slowly titrate off. Goal SpO2 88% - 92%. - Patient is on 2 L of home oxygen at baseline - Continue with above management # Anemia, normocytic, hypochromic,chronicity unknown, present on admission. Stable. - Continue to monitor # Obesity, presumed stable - Patient denies recent weight gain or weight loss # Diabetes mellitus - Hold home medication metformin and Victoza - Continue medication insulin glargine (Toujeo) - Continue low-dose correctional scale insulin - HgA1C 9.1 # Hypertension, presumed stable - Continue home medication metoprolol tartrate 25 mg by mouth in the morning - Continue medication amlodipine 5 mg Daily # Hyperlipidemia, presumed stable - Continue Medication pravastatin # Acid reflux - Continue home medication omeprazole 20 mg daily Disposition: Home in 2-3 days VTE Prophylaxis: Sub-Q Heparin (Unfractionated) Resuscitation Status: CPR: Attempt Resuscitation Rasta Mercado Mar 25, 2017 14:46
[2017-03-25] MEDS: guaiFENesin 600 mg ER12 Tablet PO PRN (15:16)
[2017-03-26] VITALS (9 sets, daily range): BP systolic 130–170; BP diastolic 78–86; PULSE 89–99; RESP 18–24; O2SAT 90–96
[2017-03-26] MEDS: Heparin 5,000 Unit/mL Inj SUBQ SCH ×3 (01:21→16:52)
[2017-03-26] MEDS: guaiFENesin 600 mg ER12 Tablet PO PRN ×2 (03:05→17:01)
--- NOTE | 2017-03-26 04:52 | NUR ---
Cough/Respiratory Patient has had intermittent, non-productive cough overnight, has decreased in frequency through the night. Administered PRN Tessalon Pearles and Guaifenesin. No PRN nebulizers given overnight, patient declined. Remains on 5L nasal cannula, CPOx in place showing saturations 90-92%. Lungs sound decreased and mildly coarse. Patient continue to have dyspnea with ambulation to restroom, but recovers once back in bed. Intentional rounding in place, patient using call light appropriately for needs.
[2017-03-26] MEDS: Pantoprazole 40 mg ER24 Tablet PO SCH (06:30)
[2017-03-26] MEDS: Albuterol-Ipratropium 3 mL Inhalation Solution NEB SCH ×4 (07:37→20:58)
[2017-03-26] MEDS: Insulin LISPRO 300 Unit/3 mL Inj SUBQ SCH ×4 (08:00→20:26)
[2017-03-26] MEDS: Azithromycin Inj 500 MG in Dextrose 5% w/Vial Mate 250 ML IV SCH (08:03)
[2017-03-26] MEDS: buPROPion SR 100 mg ER12 Tablet PO SCH ×2 (08:12→20:22)
[2017-03-26] MEDS: predniSONE 20 mg Tablet PO SCH (08:13)
[2017-03-26] MEDS: Artificial Tears 15 mL Ophthalmic Solution BOTH_EYES PRN (08:15)
[2017-03-26] MEDS: Clobetasol Prop 0.05% 15 Gm Ointment TOPICAL SCH ×2 (08:15→20:27)
[2017-03-26] MEDS: Insulin GLARgine 100 Unit/mL Syringe SUBQ SCH ×2 (08:17→20:23)
[2017-03-26] MEDS: Albuterol 2.5 mg/3 mL Inhalation Solution NEB PRN ×2 (09:36→14:59)
[2017-03-26] MEDS: Budesonide 0.5 mg/2 mL Inhalation Solution NEB SCH ×2 (15:00→20:58)
--- NOTE | 2017-03-26 15:18 | PCM.PNMED ---
Subjective Date of Service Mar 26, 2017 Subjective Continued cough and chest tightness Exam Vital Signs Vital Sign - Last Date Time Temp Pulse Resp B/P Pulse Ox O2 Delivery O2 Flow Rate FiO2 03/26/17 15:02 92 22 94 4.00 03/26/17 13:00 37.2 130/78 Nasal Cannula Intake and Output 03/25/17 03/25/17 03/26/17 Cumulative From/Thru 15:00 23:00 07:00 03/23/17 15:18 - 03/25/17 19:37 Intake Total 837 ml 2817 ml Output Total 500 ml 1600 ml Balance 337 ml 1217 ml Intake Oral 837 ml 2437 ml IV Total 380 ml Output Urine Total 500 ml 1600 ml # Voids 3 6 # Bowel Movements 2 4 Exam General: Alert, Cooperative, No Acute Distress Head: Normal Eyes: PERRLA, EOMI, Scleral Anicteric Nose: Mucous Membr Moist/[place] Mouth: Mucous Membranes Dry Neck: Supple Chest & Lungs: Chest Wall Normal, Inspiratory wheezes (mild bilat), Expiratory wheezes (bilat) Cardiovascular: Regular Rate/Rhythm Abdomen: Non-tender, Non-distended, Normoactive bowel tones, Soft Extremities: No cyanosis/clubbing/edema bilat Neurological: Grossly Neurologically Intact, Normal Speech IVs and Medications Medications Reviewed: Medications were reviewed in detail Lab and Diagnostics Result Diagram: 03/24/1752103/24/17521 X-Rays, CTs and MRIs Date of Service: 03/23/171599 PROCEDURE: X-RAY CHEST, TWO VIEWS INDICATIONS: SOB - DIAGNOSIS PNEUM FINDINGS: Surgical changes and devices: Prosthetic valve is noted. Lungs and pleura: Linear areas of opacity are present within the bases bilaterally. Previous appearance of bibasilar opacities appear slightly improved , with with the persistence of a retrocardiac opacity. Mediastinum: Mediastinal contours are normal. Heart size is normal. Bones and chest wall: No suspicious bony abnormalities. Soft tissues appear unremarkable. IMPRESSION: Slight improvement in previous bibasilar opacities with persistent linear opacities. The latter likely represents atelectasis. Persistent. The bibasilar opacities including within the retrocardiac region are suspicious for infiltrates. Dictated by: Gina Newell M.D. on 03/23/2017 at 16:45 Approved by: Gina Newell M.D. on 03/23/2017 at 16:46 Assessment & Plan 76-year-old female with history of COPD on home oxygen 2 L at baseline, diabetes mellitus and prior hospitalizations for COPD exacerbation and pneumonia requiring intubation who presented to the ED with 5 days of productive cough clear sputum and shortness of breath and dyspnea. Patient chest x-ray showed bibasilar opacities and retrocardiac infiltrate. Patient was admitted for acute COPD exacerbation and community acquired pneumonia. # Acute community acquired pneumonia, Present on Admission - Bacterial infection seems less likely now given negative procalcitonin and positive viral PCR - Stopped Ceftriaxone. Finish 5 day course of Azithromycin - Viral PCR positive for parainfluenza 3. # Acute COPD exacerbation, present on admission. - Given Solu-medrol 125 mg x 1 in the emergency department. - Continue 40 mg prednisone daily - Continue azithromycin as noted above. - Continue duo nebs and albuterol nebs as needed # Acute on chronic hypoxic respiratory failure. Present on admission. Ongoing - 2ndry to pneumonia and COPD exacerbation noted above - Continue supplemental oxygen as needed and slowly titrate off. Goal SpO2 88% - 92%. - Patient is on 2 L of home oxygen at baseline - Continue with above management # Anemia, normocytic, hypochromic,chronicity unknown, present on admission. Stable. - Continue to monitor # Obesity, presumed stable - Patient denies recent weight gain or weight loss # Diabetes mellitus - Hold home medication metformin and Victoza - Continue medication insulin glargine ([place]) - Continue low-dose correctional scale insulin - HgA1C 9.1 # Hypertension, presumed stable - Continue home medication metoprolol tartrate 25 mg by mouth in the morning - Continue medication amlodipine 5 mg Daily # Hyperlipidemia, presumed stable - Continue Medication pravastatin # Acid reflux - Continue home medication omeprazole 20 mg daily Disposition: Home in 1-2 days VTE Prophylaxis: Sub-Q Heparin (Unfractionated) Resuscitation Status: CPR: Attempt Resuscitation Rasta Mercado Mar 26, 2017 15:18
--- NOTE | 2017-03-26 15:52 | NUR ---
YAIMA Signed @ [id number]
--- NOTE | 2017-03-26 19:22 | NUR ---
Cough: Patient continues to have cough and congestion. Mucinex and Tessalon pearls given for some relief. Patient continues to receive scheduled neb treatments for relief as well.
[2017-03-27] VITALS (7 sets, daily range): BP systolic 140–172; BP diastolic 65–79; PULSE 83–98; RESP 20–24; O2SAT 90–96
[2017-03-27] MEDS: Heparin 5,000 Unit/mL Inj SUBQ SCH ×3 (02:54→16:44)
[2017-03-27 05:37] LABS: BASOPHILS % (AUTO) 0.3 % (0-3); EOSINOPHILS % (AUTO) 3.1 % (0-5); MONOCYTES % (AUTO) 10.6 % (4-12); Mean Corpuscular Hemoglobin 24.9 pg (27.0-35.0); Mean Corpuscular Volume 84.6 fL (81-100); Platelet Count 277 bil/L (150-400)
[2017-03-27 05:59] LABS: Magnesium 1.6 mg/dL (1.6-2.6)
[2017-03-27] MEDS: Pantoprazole 40 mg ER24 Tablet PO SCH (06:34)
[2017-03-27] MEDS: Albuterol-Ipratropium 3 mL Inhalation Solution NEB SCH ×4 (07:34→20:16)
[2017-03-27] MEDS: Budesonide 0.5 mg/2 mL Inhalation Solution NEB SCH ×2 (07:42→20:16)
[2017-03-27] MEDS: Insulin GLARgine 100 Unit/mL Syringe SUBQ SCH ×2 (07:52→19:29)
[2017-03-27] MEDS: Insulin LISPRO 300 Unit/3 mL Inj SUBQ SCH ×4 (07:52→23:31)
[2017-03-27] MEDS: predniSONE 20 mg Tablet PO SCH (07:54)
[2017-03-27] MEDS: buPROPion SR 100 mg ER12 Tablet PO SCH ×2 (07:54→19:28)
[2017-03-27] MEDS: guaiFENesin 20 mg/mL 10 mL Syrup PO PRN ×2 (07:57→21:28)
[2017-03-27] MEDS: Clobetasol Prop 0.05% 15 Gm Ointment TOPICAL SCH ×2 (07:59→20:30)
[2017-03-27] MEDS: Azithromycin Inj 500 MG in Dextrose 5% w/Vial Mate 250 ML IV SCH (09:33)
--- NOTE | 2017-03-27 11:33 | NUR ---
Social Work-readiness for discharge: Data:EMR Reviewed. Pt is on day 4 of hospitalization for COPD exacerbation per H&P. Pt is not medically stable anticipate 1-2 more days. Pt resides at home with her and per RN notes, pt has been up independent in her room. Pt uses home O2 through [facility]. No anticipated discharge needs. SW will continue to follow if needs arise. Assessment:pt who is independent at baseline. Plan:Pt to discharge home when medically stable via POV. No anticipated discharge needs. SW will continue to follow if needs arise. JAYDON Blackwell
--- NOTE | 2017-03-27 14:36 | PCM.PNMED ---
Subjective Date of Service Mar 27, 2017 Subjective Reports new onset diarrhea. Continued cough and chest tightness Exam Vital Signs Vital Sign - Last Date Time Temp Pulse Resp B/P Pulse Ox O2 Delivery O2 Flow Rate FiO2 03/27/17 12:39 36.5 83 22 140/65 92 Nasal Cannula 4.00 Intake and Output 03/26/17 03/26/17 03/27/17 Cumulative From/Thru 15:00 23:00 07:00 03/23/17 15:18 - 03/27/17 04:46 Intake Total 550 ml 1146 ml 4513 ml Output Total 1600 ml Balance 550 ml 1146 ml 2913 ml Intake Oral 550 ml 1146 ml 4133 ml IV Total 380 ml Output Urine Total 1600 ml # Voids 2 7 15 # Bowel Movements 0 1 5 Exam General: Alert, Cooperative, No Acute Distress Head: Normal Eyes: PERRLA, EOMI, Scleral Anicteric Nose: Mucous Membr Moist/[place] Mouth: Mucous Membranes Dry Neck: Supple Chest & Lungs: Chest Wall Normal, Inspiratory wheezes (bilat), Expiratory wheezes (bilat) Cardiovascular: Regular Rate/Rhythm Abdomen: Non-tender, Non-distended, Normoactive bowel tones, Soft Extremities: No cyanosis/clubbing/edema bilat Neurological: Grossly Neurologically Intact, Normal Speech IVs and Medications Medications Reviewed: Medications were reviewed in detail Lab and Diagnostics Result Diagram: 03/27/1752403/27/17 05 X-Rays, CTs and MRIs Date of Service: 03/23/17 1600 PROCEDURE: X-RAY CHEST, TWO VIEWS INDICATIONS: SOB - DIAGNOSIS PNEUM FINDINGS: Surgical changes and devices: Prosthetic valve is noted. Lungs and pleura: Linear areas of opacity are present within the bases bilaterally. Previous appearance of bibasilar opacities appear slightly improved , with with the persistence of a retrocardiac opacity. Mediastinum: Mediastinal contours are normal. Heart size is normal. Bones and chest wall: No suspicious bony abnormalities. Soft tissues appear unremarkable. IMPRESSION: Slight improvement in previous bibasilar opacities with persistent linear opacities. The latter likely represents atelectasis. Persistent. The bibasilar opacities including within the retrocardiac region are suspicious for infiltrates. Dictated by: Gina Newell M.D. on 03/23/2017 at 16:45 Approved by: Gina Newell M.D. on 03/23/2017 at 16:46 Assessment & Plan 76-year-old female with history of COPD on home oxygen 2 L at baseline, diabetes mellitus and prior hospitalizations for COPD exacerbation and pneumonia requiring intubation who presented to the ED with 5 days of productive cough clear sputum and shortness of breath and dyspnea. Patient chest x-ray showed bibasilar opacities and retrocardiac infiltrate. Patient was admitted for acute COPD exacerbation and community acquired pneumonia. # Acute community acquired pneumonia, Present on Admission - Bacterial infection seems less likely now given negative procalcitonin and positive viral PCR - Stopped Ceftriaxone. Finish 5 day course of Azithromycin on 03/27/17 - Viral PCR positive for parainfluenza 3. # Acute COPD exacerbation, present on admission. - Given Solu-medrol 125 mg x 1 in the emergency department. - Continue 40 mg prednisone daily - Continue duo nebs and albuterol nebs as needed # Acute on chronic hypoxic respiratory failure. Present on admission. Ongoing - 2ndry to pneumonia and COPD exacerbation noted above - Continue supplemental oxygen as needed and slowly titrate down to baseline of 2L. Goal SpO2 88% - 92%. - Continue with above management # Acute diarrhea. Not present on admission. - rule out C. Diff # Anemia, normocytic, hypochromic,chronicity unknown, present on admission. Stable. - Continue to monitor # Obesity, presumed stable - Patient denies recent weight gain or weight loss # Diabetes mellitus - Hold home medication metformin and Victoza - Continue medication insulin glargine - Continue low-dose correctional scale insulin - HgA1C 9.1 # Hypertension, presumed stable - Continue home medication metoprolol tartrate 25 mg by mouth in the morning - Continue medication amlodipine 5 mg Daily # Hyperlipidemia, presumed stable - Continue Medication pravastatin # Acid reflux - Continue home medication omeprazole 20 mg daily Disposition: Home in 1-2 days VTE Prophylaxis: Sub-Q Heparin (Unfractionated) Resuscitation Status: CPR: Attempt Resuscitation Rasta Mercado Mar 27, 2017 14:36
[2017-03-27] MEDS: guaiFENesin 600 mg ER12 Tablet PO PRN ×2 (16:44→23:48)
--- NOTE | 2017-03-27 18:43 | NUR ---
Hyperglycemia: Patients blood sugars have been elevated due to her Prednisone dosing. Patient receives 56 units of Lantus insuline in the morning and she recieved her sliding scale oakes of insuline with her meals. Her blood sugar\s have ranged from 300-400 today. was informed of the hyperglycemia.
[2017-03-28] VITALS (9 sets, daily range): BP systolic 121–155; BP diastolic 61–75; PULSE 89–96; RESP 20–26; O2SAT 85–93
[2017-03-28] MEDS: Heparin 5,000 Unit/mL Inj SUBQ SCH ×3 (00:30→16:33)
[2017-03-28] MEDS: Albuterol 2.5 mg/3 mL Inhalation Solution NEB PRN ×3 (02:50→16:40)
[2017-03-28] MEDS: Albuterol-Ipratropium 3 mL Inhalation Solution NEB SCH ×3 (07:57→20:52)
[2017-03-28] MEDS: Budesonide 0.5 mg/2 mL Inhalation Solution NEB SCH ×2 (07:57→20:52)
[2017-03-28] MEDS: guaiFENesin 20 mg/mL 10 mL Syrup PO PRN (08:27)
[2017-03-28] MEDS: buPROPion SR 100 mg ER12 Tablet PO SCH ×2 (08:28→21:59)
[2017-03-28] MEDS: Pantoprazole 40 mg ER24 Tablet PO SCH (08:28)
[2017-03-28] MEDS: Insulin GLARgine 100 Unit/mL Syringe SUBQ SCH ×2 (08:29→22:07)
[2017-03-28] MEDS: Clobetasol Prop 0.05% 15 Gm Ointment TOPICAL SCH ×3 (08:30→22:21)
[2017-03-28] MEDS ORDERED: predniSONE 20 mg Tablet PO SCH (08:30)
[2017-03-28] MEDS: Insulin LISPRO 300 Unit/3 mL Inj SUBQ SCH ×4 (08:33→22:07)
--- NOTE | 2017-03-28 08:55 | NUR ---
YAIMA signed. JAYDON Blackwell
--- NOTE | 2017-03-28 14:59 | PCM.PNMED ---
Subjective Date of Service Mar 28, 2017 Subjective Reports diarrhea resolved. Continued cough and chest tightness which she feels is worse today Exam Vital Signs Vital Sign - Last Date Time Temp Pulse Resp B/P Pulse Ox O2 Delivery O2 Flow Rate FiO2 03/28/17 14:46 37.1 92 26 121/61 91 OxyMask 7.00 Intake and Output 03/27/17 03/27/17 03/28/17 Cumulative From/Thru 15:00 23:00 07:00 03/23/17 15:18 - 03/28/17 06:09 Intake Total 418 ml 700 ml 600 ml 6231 ml Output Total 5 ml 400 ml 350 ml 2355 ml Balance 413 ml 300 ml 250 ml 3876 ml Intake Oral 418 ml 700 ml 600 ml 5851 ml IV Total 380 ml Output Urine Total 400 ml 350 ml 2350 ml Stool Total 5 ml 5 ml # Voids 4 6 1 26 # Bowel Movements 2 7 Exam General: Alert, Cooperative, No Acute Distress Head: Normal Eyes: PERRLA, EOMI, Scleral Anicteric Nose: Mucous Membr Moist/[place] Mouth: Mucous Membranes Dry Neck: Supple Chest & Lungs: Chest Wall Normal, Inspiratory wheezes (bilat), Expiratory wheezes (bilat) Cardiovascular: Regular Rate/Rhythm Abdomen: Non-tender, Non-distended, Normoactive bowel tones, Soft Extremities: No cyanosis/clubbing/edema bilat Neurological: Grossly Neurologically Intact, Normal Speech IVs and Medications Medications Reviewed: Medications were reviewed in detail Lab and Diagnostics Result Diagram: 03/27/17 0525 03/27/17 0525 X-Rays, CTs and MRIs Date of Service: 03/23/17 1600 PROCEDURE: X-RAY CHEST, TWO VIEWS INDICATIONS: SOB - DIAGNOSIS PNEUM FINDINGS: Surgical changes and devices: Prosthetic valve is noted. Lungs and pleura: Linear areas of opacity are present within the bases bilaterally. Previous appearance of bibasilar opacities appear slightly improved , with with the persistence of a retrocardiac opacity. Mediastinum: Mediastinal contours are normal. Heart size is normal. Bones and chest wall: No suspicious bony abnormalities. Soft tissues appear unremarkable. IMPRESSION: Slight improvement in previous bibasilar opacities with persistent linear opacities. The latter likely represents atelectasis. Persistent. The bibasilar opacities including within the retrocardiac region are suspicious for infiltrates. Dictated by: Gina Newell M.D. on 03/23/2017 at 16:45 Approved by: Gina Newell M.D. on 03/23/2017 at 16:46 Assessment & Plan 76-year-old female with history of COPD on home oxygen 2 L at baseline, diabetes mellitus and prior hospitalizations for COPD exacerbation and pneumonia requiring intubation who presented to the ED with 5 days of productive cough clear sputum and shortness of breath and dyspnea. Patient chest x-ray showed bibasilar opacities and retrocardiac infiltrate. Patient was admitted for acute COPD exacerbation and community acquired pneumonia. # Acute community acquired pneumonia, Present on Admission - Bacterial infection seems less likely now given negative procalcitonin and positive viral PCR - Stopped Ceftriaxone. Finish 5 day course of Azithromycin on 03/27/17 - Viral PCR positive for parainfluenza 3. # Acute COPD exacerbation, present on admission. - Given Solu-medrol 125 mg x 1 in the emergency department. - Increased Prednisone from 40 to 60 mg on 03/28 but will change PO prednisone to IV Solu-Medrol given worsening SOB - Continue duo nebs and albuterol nebs as needed # Acute on chronic hypoxic respiratory failure. Present on admission. Ongoing - 2ndry to pneumonia and COPD exacerbation noted above - Continue supplemental oxygen as needed and slowly titrate down to baseline of 2L. Goal SpO2 88% - 92%. - Continue with above management # Acute diarrhea. Not present on admission. Resolved - rule out C. Diff if diarrhea reoccur # Anemia, normocytic, hypochromic,chronicity unknown, present on admission. Stable. - Continue to monitor # Obesity, presumed stable - Patient denies recent weight gain or weight loss # Diabetes mellitus - Hold home medication metformin and Victoza - Continue medication insulin glargine - Continue low-dose correctional scale insulin - HgA1C 9.1 # Hypertension, presumed stable - Continue home medication metoprolol tartrate 25 mg by mouth in the morning - Continue medication amlodipine 5 mg Daily # Hyperlipidemia, presumed stable - Continue Medication pravastatin # Acid reflux - Continue home medication omeprazole 20 mg daily Disposition: Home in 2-3 days VTE Prophylaxis: Sub-Q Heparin (Unfractionated) Resuscitation Status: CPR: Attempt Resuscitation Rasta Mercado Mar 28, 2017 14:59
[2017-03-28] MEDS ORDERED: Insulin LISPRO 300 Unit/3 mL Inj SUBQ ONE ×2 (17:20→18:10)
--- NOTE | 2017-03-28 18:35 | NUR ---
Hyperglycemia: Patients blood sugar was 583 before her dinner. Patient was given 5 units of sliding scale and 10units of Humalog extra per MD. Rechecked patients blood sugar in one hour and her reading was still high at 477. Notified MD and patient was given another 10units of Humalog per MD order before her dinner. Patients has been bringing her restaurant foods and her prednisone was increased. Patients Lantus was increased from 56 units to 65 units in the morning and at night.
[2017-03-28] MEDS: guaiFENesin 600 mg ER12 Tablet PO SCH (22:00)
[2017-03-28] MEDS: MethylprednisoLONE Sodium Succinate 40 mg/mL Inj IVPUSH SCH (22:00)
[2017-03-29] VITALS (9 sets, daily range): BP systolic 148–158; BP diastolic 68–79; PULSE 85–101; RESP 18–26; O2SAT 88–96
[2017-03-29] MEDS: Heparin 5,000 Unit/mL Inj SUBQ SCH ×3 (00:43→16:35)
[2017-03-29] MEDS: MethylprednisoLONE Sodium Succinate 40 mg/mL Inj IVPUSH SCH ×2 (03:32→08:31)
[2017-03-29] MEDS: Albuterol 2.5 mg/3 mL Inhalation Solution NEB PRN (03:57)
--- NOTE | 2017-03-29 05:40 | NUR ---
Respiratory/BG pt at the beginning of the shift was on 5L of NC and 6L of oxymask. Then RT changed her to 8L O2 via oxyMask. pt SPO2 WAS 88-91%. During night pt sat goes up to 94%. Titrated down her O2 to 6L with SPO2 88-92%. PRN nebulizers given overnight by RT. Lungs sounds congested, mildy decreased, coarse, and Wheezing. Patient continue to have dyspnea with activity, but recovers once back to rest. pt denies pain/N/V/D. Pt BG at bedtime was 327. Administered Lantus and sliding care Lispro. at 0230, pt BG 290, HS hospitalist notified. care continues.
[2017-03-29] MEDS: Pantoprazole 40 mg ER24 Tablet PO SCH (06:26)
[2017-03-29 06:27] LABS: Magnesium 1.7 mg/dL (1.6-2.6)
[2017-03-29] MEDS: Albuterol-Ipratropium 3 mL Inhalation Solution NEB SCH ×4 (07:29→19:54)
[2017-03-29] MEDS: Budesonide 0.5 mg/2 mL Inhalation Solution NEB SCH ×2 (07:33→19:54)
[2017-03-29] MEDS: guaiFENesin 600 mg ER12 Tablet PO SCH ×2 (08:30→21:05)
[2017-03-29] MEDS: buPROPion SR 100 mg ER12 Tablet PO SCH ×2 (08:31→21:07)
[2017-03-29] MEDS: Insulin LISPRO 300 Unit/3 mL Inj SUBQ SCH ×4 (08:32→21:14)
[2017-03-29] MEDS: Insulin GLARgine 100 Unit/mL Syringe SUBQ SCH ×2 (08:33→18:03)
[2017-03-29] MEDS: Clobetasol Prop 0.05% 15 Gm Ointment TOPICAL SCH ×2 (08:33→20:30)
--- NOTE | 2017-03-29 09:13 | DRSVH ---
PROCEDURE: X-RAY CHEST, TWO VIEWS ([id number]) INDICATIONS: hypoxia, SOB TECHNIQUE: 2 views of the chest were acquired. COMPARISON: [facility], CR, XR CHEST 1VW (PORTABLE), 03/21/2017, 15:10. [facility], CR, XR CHEST 2VW, 03/23/2017, 16:32. FINDINGS: Surgical changes and devices: None. Lungs and pleura: There is a small left pleural effusion. There are bibasilar infiltrates, slightly increased in the right lung base. Left basilar atelectasis. No pneumothorax. Mediastinum: Mediastinal contours are normal. Heart size is normal. Bones and chest wall: No suspicious bony abnormalities. Soft tissues appear unremarkable. IMPRESSION: Increased right basilar infiltrate. Dictated by: Jose Vázquez M.D. on 03/29/2017 at 9:08 Approved by: Jose Vázquez M.D. on 03/29/2017 at 9:11
--- NOTE | 2017-03-29 10:35 | ABG ---
DateTimeAnalyzed 10:27:00 -_ pH ____7.348 - pCO2 ___60.7__ -mmHg pO2 ___33.6__ -mmHg HCO3- ___32.5__ -mmol/L ABE ____5.7__ -mmol/L tHb ___12.2__ -g/dL O2Hb ___54.0__ -% COHb ____1.3__ -% MetHb ____2.1__ -% sO2 ___55.9__ -% FIO2 ___21.0__ -% Drawn By LAB - Date/Time Notified____ 10:34:00 -_ Notified By GJ - Notified Whom ___DR. TALEGHANI - B 762 -mmHg tO2 ____9.3__ -Vol% Nicolas test N/A -
[2017-03-29] MEDS ORDERED: Insulin LISPRO 300 Unit/3 mL Inj SUBQ ONE ×2 (13:55→17:35)
--- NOTE | 2017-03-29 13:58 | DRSVH ---
PROCEDURE: CT CHEST WITH CONTRAST ([id number]) INDICATIONS: COPD, continued increased O2 demands TECHNIQUE: After the administration of intravenous contrast, 5 mm thick sections acquired from the pulmonary api justin to the posterior costophrenic angles. 7 mm thick coronal and sagittal MIP reformats were acquire d. For radiation dose reduction, the following was used: automated exposure control, adjustment of mA and/or kV according to patient size. COMPARISON: [facility], CR, XR CHEST 1VW (PORTABLE), 03/21/2017, 15:10. [facility], CR, XR CHEST 2VW, 03/23/2017, 16:32. [facility], CR, XR CHEST 2VW, 03/29/2017, 8:3 1. FINDINGS: Image quality: Excellent. Lungs and pleura: There is disease in the right middle and lower lobes, as well as the left lower lo be are most likely atelectasis. There are small subcentimeter nodules in the right upper lobe, right lower lobe and left upper lobe. A cluster of nodules in the right upper lobe measures up to 4 mm (ser ies 3 image 29). There is a 3 mm nodule in the left upper lobe (series 3 image 23). No acute air spac e opacities. No pleural effusions or pneumothorax. Central and peripheral airways are patent and no rmal in caliber. Mediastinum: Heart size is normal. There is a aortic valve prosthesis. Mild coronary calcification. No pericardial effusion. No mediastinal or hilar adenopathy by size criteria. Thoracic aorta and c entral pulmonary arteries are normal in size. Severe aortic atherosclerosis. Esophagus is normal in caliber. No hiatal hernia. Bones and chest wall: No suspicious bony lesions. No vertebral body compression fractures. No axil amy or supraclavicular adenopathy by size criteria. Thyroid gland is normal. Abdomen: Visualized upper abdominal solid organs appear normal. Upper abdominal bowel loops are nor mal in caliber. IMPRESSION: 1. Densities in the right middle and lower lobes, as well as left lower lobe, are most likely atelect asis. 2. Indeterminate subcentimeter nodules bilaterally. Recommend followup CT (see enclosed recommendatio n). Fleischner Society criteria for SOLID lung nodule followup. Nodule size (mm)Low-risk patientHigh-risk [id number] follow-up neededFollow-up at 12 mo; if no vines e, no further follow-up>1-6Lfhlky-rd CT at 12 mo; if no change, no further follow-up needed.Initial f ollow-up CT at 6-12 mo, then 18-24 mo if no change. >6-8Initial follow-up CT at 6-12 mo, then 18-24 mo if no change. Initial follow-up CT at 3-6 mo, then 9-12 mo and 24 mo if no change. >8Follow-up CT at 3, 9, 24 mo. Or PET and/or biopsy.Same as for low-risk pts. Dictated by: Jose Vázquez M.D. on 03/29/2017 at 13:41 Approved by: Jose Vázquez M.D. on 03/29/2017 at 13:56
--- NOTE | 2017-03-29 14:15 | PCM.PNMED ---
Subjective Date of Service Mar 29, 2017 Subjective Continued cough and chest tightness. Exam Vital Signs Vital Sign - Last Date Time Temp Pulse Resp B/P Pulse Ox O2 Delivery O2 Flow Rate FiO2 03/29/17 12:03 97 20 89 OxyMask 6.00 03/29/17 10:56 37.2 148/72 Intake and Output 03/28/17 03/28/17 03/29/17 Cumulative From/Thru 15:00 23:00 07:00 03/23/17 15:18 - 03/29/17 05:37 Intake Total 1072 ml 7303 ml Output Total 1600 ml 3955 ml Balance -528 ml 3348 ml Intake Oral 1072 ml 6923 ml IV Total 380 ml Output Urine Total 1600 ml 3950 ml Stool Total 5 ml # Voids 26 # Bowel Movements 0 7 Exam General: Alert, Cooperative, No Acute Distress Head: Normal Eyes: PERRLA, EOMI, Scleral Anicteric Nose: Mucous Membr Moist/[place] Mouth: Mucous Membranes Dry Neck: Supple Chest & Lungs: Chest Wall Normal, Inspiratory wheezes (bilat), Expiratory wheezes (bilat) Cardiovascular: Regular Rate/Rhythm Abdomen: Non-tender, Non-distended, Normoactive bowel tones, Soft Extremities: No cyanosis/clubbing/edema bilat Neurological: Grossly Neurologically Intact, Normal Speech IVs and Medications Medications Reviewed: Medications were reviewed in detail Lab and Diagnostics Result Diagram: 03/27/17 0525 03/29/17 0522 X-Rays, CTs and MRIs Date of Service: 03/23/17 1600 PROCEDURE: X-RAY CHEST, TWO VIEWS INDICATIONS: SOB - DIAGNOSIS PNEUM FINDINGS: Surgical changes and devices: Prosthetic valve is noted. Lungs and pleura: Linear areas of opacity are present within the bases bilaterally. Previous appearance of bibasilar opacities appear slightly improved , with with the persistence of a retrocardiac opacity. Mediastinum: Mediastinal contours are normal. Heart size is normal. Bones and chest wall: No suspicious bony abnormalities. Soft tissues appear unremarkable. IMPRESSION: Slight improvement in previous bibasilar opacities with persistent linear opacities. The latter likely represents atelectasis. Persistent. The bibasilar opacities including within the retrocardiac region are suspicious for infiltrates. Dictated by: Gina Newell M.D. on 03/23/2017 at 16:45 Approved by: Gina Newell M.D. on 03/23/2017 at 16:46 Date of Service: 03/29/17 1210 PROCEDURE: CT CHEST WITH CONTRAST ([id number]) IMPRESSION: 1. Densities in the right middle and lower lobes, as well as left lower lobe, are most likely atelectasis. 2. Indeterminate subcentimeter nodules bilaterally. Recommend followup CT (see enclosed recommendation). Fleischner Society criteria for SOLID lung nodule followup. Nodule size (mm)Low-risk patientHigh-risk [id number] follow-up neededFollow-up at 12 mo; if no change, no further follow-up>[id number] CT at 12 mo; if no change, no further follow-up needed.Initial follow-up CT at 6-12 mo, then 18-24 mo if no change. >6-8Initial follow-up CT at 6-12 mo, then 18-24 mo if no change. Initial follow-up CT at 3-6 mo, then 9-12 mo and 24 mo if no change. > 8Follow-up CT at 3, 9, 24 mo. Or PET and/or biopsy.Same as for low-risk pts. Dictated by: Jose Vázquez M.D. on 03/29/2017 at 13:41 Approved by: Jose Vázquez M.D. on 03/29/2017 at 13:56 Assessment & Plan 76-year-old female with history of COPD on home oxygen 2 L at baseline, diabetes mellitus and prior hospitalizations for COPD exacerbation and pneumonia requiring intubation who presented to the ED with 5 days of productive cough clear sputum and shortness of breath and dyspnea. Patient chest x-ray showed bibasilar opacities and retrocardiac infiltrate. Patient was admitted for acute COPD exacerbation and community acquired pneumonia. # Acute community acquired pneumonia, Present on Admission - Bacterial infection seems less likely now given negative procalcitonin and positive viral PCR - Stopped Ceftriaxone. Finished 5 day course of Azithromycin on 03/27/17 - Viral PCR positive for parainfluenza 3. # Acute COPD exacerbation, present on admission. Ongoing and possibly worsening - Given Solu-medrol 125 mg x 1 in the emergency department. - Increased Prednisone from 40 to 60 mg on 03/28 but changed PO prednisone to IV Solu-Medrol on 03/28/17 given worsening SOB - Continue duo nebs and albuterol nebs as needed - CT chest 03/29 without acute finding - Pulmonology consulted on 03/29 given increased oxygen requirement. Will followup with recs # Acute on chronic hypoxic respiratory failure. Present on admission. Ongoing - 2ndry to pneumonia and COPD exacerbation noted above - Continue supplemental oxygen - Continue with above management - Pulmonology consult as noted # Diabetes mellitus - Poorly controlled hyperglycemia with current steroid treatment - Hold home medication metformin and Victoza - Continue with Lantus and titrate up - ISS and bump to high dose - HgA1C 9.1 # Acute diarrhea. Not present on admission. Resolved - rule out C. Diff if diarrhea reoccur # Anemia, normocytic, hypochromic,chronicity unknown, present on admission. Stable. - Continue to monitor # Obesity, presumed stable - Patient denies recent weight gain or weight loss # Hypertension, presumed stable - Continue home medication metoprolol tartrate 25 mg by mouth in the morning - Continue medication amlodipine 5 mg Daily # Hyperlipidemia, presumed stable - Continue Medication pravastatin # Acid reflux - Continue home medication omeprazole 20 mg daily Disposition: Home in 2-3 days VTE Prophylaxis: Sub-Q Heparin (Unfractionated) Resuscitation Status: CPR: Attempt Resuscitation Rasta Mercado Mar 29, 2017 14:15
--- NOTE | 2017-03-29 14:24 | NUR ---
Hyperglycemia Patient blood glucose before lunch was 572. 5 units Humalog insulin administered per sliding scale and MD informed. Rechecked blood sugar and was 534 an hour later and MD notified. MD ordered 12 units of Humalog one time order and to increase sliding scale to high dose sliding scale. Will continue to monitor. Addendum: 03/29/17 at 1724 by ARELIS CASTRO RN Patient dinner blood glucose was 523. 12 units Lispro administered as ordered and BG reduced to 440. MD notified and ordered 8 units Lispro and to administer Lantus early. Will continue to monitor
[2017-03-29] MEDS ORDERED: Glucose 40% Oral Gel 15 Gm Tube PO PRN (14:25)
[2017-03-30] VITALS (8 sets, daily range): BP systolic 128–152; BP diastolic 71–79; PULSE 67–97; RESP 20–24; O2SAT 89–98
[2017-03-30] MEDS: Heparin 5,000 Unit/mL Inj SUBQ SCH ×3 (00:44→16:54)
[2017-03-30] MEDS: Albuterol 2.5 mg/3 mL Inhalation Solution NEB PRN (00:53)
[2017-03-30] MEDS: Pantoprazole 40 mg ER24 Tablet PO SCH (05:25)
[2017-03-30] MEDS: Budesonide 0.5 mg/2 mL Inhalation Solution NEB SCH ×2 (07:37→20:43)
[2017-03-30] MEDS: Albuterol-Ipratropium 3 mL Inhalation Solution NEB SCH ×4 (07:37→20:43)
[2017-03-30] MEDS: guaiFENesin 600 mg ER12 Tablet PO SCH ×2 (07:47→20:36)
[2017-03-30] MEDS: predniSONE 20 mg Tablet PO SCH (07:48)
[2017-03-30] MEDS: buPROPion SR 100 mg ER12 Tablet PO SCH ×2 (07:49→20:36)
[2017-03-30] MEDS: Insulin LISPRO 300 Unit/3 mL Inj SUBQ SCH ×4 (07:50→21:00)
[2017-03-30] MEDS: Insulin GLARgine 100 Unit/mL Syringe SUBQ SCH ×2 (07:51→21:00)
--- NOTE | 2017-03-30 09:24 | NUR ---
Social Work-readiness for discharge: Data:EMR Reviewed. Pt is on day 7 of hospitalization for COPD exacerbation per H&P. Pt is not medically stable anticipate 1-2 more days. Pt resides at home with her and per RN notes, pt has been up independent in her room. Pt uses home O2 through [facility]. states that pulmonary will be consulted to see pt. No anticipated discharge needs. SW will continue to follow if needs arise. Assessment:pt who is independent at baseline. Plan:Pt to discharge home when medically stable via POV. No anticipated discharge needs. SW will continue to follow if needs arise. JAYDON Blackwell
--- NOTE | 2017-03-30 11:17 | CONS ---
[address] [address] CONSULTATION REPORT PATIENT: ROYAL SILVA : 1940 MR#: [id number] ADMIT: 03/23/2017 JOB ID: [id number] DATE OF SERVICE: 03/30/2017 REASON FOR CONSULTATION: Hypoxemia and abnormal chest x-ray. HISTORY OF ILLNESS: The patient is a very pleasant, 76-year-old, white female, former smoker, with a history of advanced COPD, and recurrent exacerbations thereof. She was recently admitted to the hospital on the with a 5-day history of increasing cough, dyspnea and wheezing. She had been seen previously in the emergency department on March 21, but declined admission at that time, only to return two days later, and require admission. She has been treated since admission with empiric antibiotics including Rocephin and azithromycin as well as parenteral corticosteroids and scheduled bronchodilators. Initially, she had some improvement but recently has required increasing oxygen flow, and Pulmonary consultation is now requested to assist in management. She has a 50 pack year smoking history, quitting 10 years ago. 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 She recently moved to [place] with her after retiring in the [facility]. She lives in a single family home. There are no pets. There is no recent travel outside of the [facility]. Her with whom she lives has been well. She has no significant sick contacts otherwise. She has a significant personal history for an episode last year with exacerbation of her chronic lung disease leading to intubation and mechanical ventilation for a period of time. She was able to be discharged from that episode without supplemental oxygen, but 2-3 weeks later, was found to be hypoxemic at followup, and supplemental oxygen was then prescribed. She has remained on supplemental oxygen at 2-3 L/minute which is increased to 4 L/minute with exertion. Today, she denies any chest pain, PND, orthopnea, lower extremity swelling. In fact, her lower extremity, knees and ankles are less edematous than is typically her baseline as an outpatient. She denies rigors, chills or sweats. She has cough but this has been nonproductive since her admission and remains that way. OUTPATIENT MEDICATIONS: Include: 1. ProAir, 2 puffs q.4 h. p.r.n. 2. Budesonide metered dose inhaler, 2 puffs b.i.d. 3. Amlodipine 5 mg daily. 4. Bupropion ER 200 mg b.i.d. 5. Artificial Tears both eyes p.r.n. 6. Furosemide 40 mg q.a.m. 7. Ibuprofen 200 mg daily p.r.n. headache. 8. Insulin glargine 140 units at h.s., no a.m. dose. 9. Victoza 0.6 mg p.o. q.h.s. 10. Metformin 1000 mg p.o. b.i.d. 11. Metoprolol 25 mg p.o. daily. 12. Omeprazole 20 mg p.o. q.a.m. 13. Mirapex 0.25 mg b.i.d. 14. Pravastatin 80 mg p.o. at h.s. 15. Spiriva 18 mcg by inhaler daily. DRUG ALLERGIES: MORPHINE PAST MEDICAL HISTORY: 1. Type 2 diabetes mellitus. 2. Obesity. 3. Aortic stenosis, status post TAVR in 2014 at [facility]. 4. COPD. PAST SURGICAL HISTORY: TAVR. FAMILY HISTORY: No significant family history for early or chronic lung disease. Mother developed colon cancer and of this at age 60. Her father had systolic heart failure in his 70s. REVIEW OF SYSTEMS: Primarily positive for cough, dyspnea, wheezing. She denies nausea, vomiting, loss of consciousness, aspiration, pleuritic chest pain, PND, orthopnea, history of pulmonary embolism, DVT, hemoptysis, jaundice, hepatitis, kidney disease. A 12 system review complete and positive only as noted. PHYSICAL EXAM: This is an obese, but well appearing woman who is alert, comfortable and cooperative throughout the exam. Her blood pressure is 140/70, heart rate is 70 and regular, respirations are 18, and O2 saturation ranges from 86-92% on 6 L by nasal cannula. She is and has been afebrile. HEENT exam: Conjunctivae not injected. Sclerae anicteric. Pupils are equal at 5 mm. Gaze appears conjugate. The face is symmetric. The oropharynx shows moist mucosa without ulcerations or exudate. The trachea is midline. Neck veins are not seen. There is no cervical or supraclavicular lymphadenopathy. The thyroid is not palpable. Lungs are clear to percussion on auscultation. She has markedly diminished air movement in all lung yepez with scattered fine rales and rare end-expiratory wheezing. Cardiac exam: regularly regular rhythm without murmur , gallop or rub. Abdomen is soft, nontender, normal bowel tones are present. There is no mass or organomegaly. There are no bruits. Extremities: No cyanosis or clubbing. She has both Heberden's and Sudheer's nodes on the right greater than left. There is no active synovitis. The lower extremities are free of edema. Pulses are 1+ at the wrist and trace at both dorsalis pedis. Skin is unremarkable, free of ecchymosis, purpura or ulceration. Neurologic: Moves all four extremities. Speech is fluent. DATABASE: Per the electronic medical record. Chest x-ray shows bibasilar atelectasis with an infiltrate in the right mid lung zone. On chest CT scan dated March 29, 2017, showed dense consolidation of the right middle lobe. There is an area of dense airspace disease at the left base which is greater than a similar area on the right posterior medial base. Numerous tiny nodules noted by radiology, primarily in the upper lung zones bilaterally. Most recent laboratories were from March 29, 2017. Her sodium is 137, potassium 4.9, chloride 92, total CO2 of 28, BUN 29, creatinine 0.8, and a procalcitonin level is 0.07. Her most recent CBC actually is from March 27 when her hemoglobin was 12, hematocrit 40, WBC 9.1, and 227,000 platelets. IMPRESSION: Acute exacerbation of chronic obstructive pulmonary disease with right middle lobe pneumonia. When first seen, she did not require resumption of antibiotics and actually was slowly improving. Her very poorly-controlled diabetes was probably contributing to delayed resolution of her pneumonia, and I have stopped her parental corticosteroids and decreased her exogenous steroids to 40 mg a day by mouth. More aggressive management of her diabetes could be required by her primary team. If she continues to be afebrile with improving exam and declining O2 requirements, I think we can continue to withhold additional antibiotics and anticipate discharge in the next 1-2 days. 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 Garza, but does not have an appointment with her until August of this year. The patient and her have quite a few questions regarding early warning signs for exacerbation. They have a home oximeter that they seem to rely on as means of monitoring her disease. As an alternative, I suggested that when she begins to experience silk examiner awakenings and needs to increase the frequency of her short-acting beta agonist, that she should contact her primary care physician or mechanical press operator before she develops elysia hypoxemia. RECOMMEND: 1. Discontinue intravenous steroids, prednisone 40 mg daily. 2. Continue with hold broad-spectrum antibiotics for now. Monitor clinically. 3. Augmented clearance with acapella or flutter valve. 4. Increase activity. 5. Follow up chest imaging in 6-8 weeks to confirm radiographic resolution of airspace disease. 6. Attempt to maintain blood blucose less than 180 Thank you for requesting Pulmonary critical care consultation. We will continue to follow with you while she remains hospitalized. SUNITHA
--- NOTE | 2017-03-30 16:42 | PCM.PNMED ---
Subjective Date of Service Mar 30, 2017 Subjective Continued cough and chest tightness. Thinks improving. Denies any other new issues/complaints. Exam Vital Signs Vital Sign - Last Date Time Temp Pulse Resp B/P Pulse Ox O2 Delivery O2 Flow Rate FiO2 03/30/17 16:18 Supplement Oxygen 03/30/17 15:50 86 20 98 5.00 03/30/17 13:53 36.3 128/73 Intake and Output 03/29/17 03/29/17 03/30/17 Cumulative From/Thru 15:00 23:00 07:00 03/23/17 15:18 - 03/30/17 06:20 Intake Total 200 ml 2393 ml 650 ml 94193 ml Output Total 700 ml 3050 ml 900 ml 8605 ml Balance -500 ml -657 ml -250 ml 1941 ml Intake Oral 200 ml 2383 ml 650 ml 65139 ml IV Total 10 ml 390 ml Output Urine Total 700 ml 3050 ml 900 ml 8600 ml Stool Total 5 ml # Voids 26 # Bowel Movements 0 7 Exam General: Alert, Cooperative, No Acute Distress Head: Normal Eyes: PERRLA, EOMI, Scleral Anicteric Nose: Mucous Membr Moist/[place] Mouth: Mucous Membranes Dry Neck: Supple Chest & Lungs: Chest Wall Normal, Inspiratory wheezes (bilat), Expiratory wheezes (bilat) Cardiovascular: Regular Rate/Rhythm Abdomen: Non-tender, Non-distended, Normoactive bowel tones, Soft Extremities: No cyanosis/clubbing/edema bilat Neurological: Grossly Neurologically Intact, Normal Speech IVs and Medications Medications Reviewed: Medications were reviewed in detail Lab and Diagnostics Result Diagram: 03/27/17 0525 03/29/17 0522 X-Rays, CTs and MRIs Date of Service: 03/23/17 1600 PROCEDURE: X-RAY CHEST, TWO VIEWS INDICATIONS: SOB - DIAGNOSIS PNEUM FINDINGS: Surgical changes and devices: Prosthetic valve is noted. Lungs and pleura: Linear areas of opacity are present within the bases bilaterally. Previous appearance of bibasilar opacities appear slightly improved , with with the persistence of a retrocardiac opacity. Mediastinum: Mediastinal contours are normal. Heart size is normal. Bones and chest wall: No suspicious bony abnormalities. Soft tissues appear unremarkable. IMPRESSION: Slight improvement in previous bibasilar opacities with persistent linear opacities. The latter likely represents atelectasis. Persistent. The bibasilar opacities including within the retrocardiac region are suspicious for infiltrates. Dictated by: Gina Newell M.D. on 03/23/2017 at 16:45 Approved by: Gina Newell M.D. on 03/23/2017 at 16:46 Date of Service: 03/29/17 1210 PROCEDURE: CT CHEST WITH CONTRAST ([id number]) IMPRESSION: 1. Densities in the right middle and lower lobes, as well as left lower lobe, are most likely atelectasis. 2. Indeterminate subcentimeter nodules bilaterally. Recommend followup CT (see enclosed recommendation). Fleischner Society criteria for SOLID lung nodule followup. Nodule size (mm)Low-risk patientHigh-risk [id number] follow-up neededFollow-up at 12 mo; if no change, no further follow-up>[id number] CT at 12 mo; if no change, no further follow-up needed.Initial follow-up CT at 6-12 mo, then 18-24 mo if no change. >6-8Initial follow-up CT at 6-12 mo, then 18-24 mo if no change. Initial follow-up CT at 3-6 mo, then 9-12 mo and 24 mo if no change. > 8Follow-up CT at 3, 9, 24 mo. Or PET and/or biopsy.Same as for low-risk pts. Dictated by: Jose Vázquez M.D. on 03/29/2017 at 13:41 Approved by: Jose Vázquez M.D. on 03/29/2017 at 13:56 Assessment & Plan 76-year-old female with history of COPD on home oxygen 2 L at baseline, diabetes mellitus and prior hospitalizations for COPD exacerbation and pneumonia requiring intubation who presented to the ED with 5 days of productive cough clear sputum and shortness of breath and dyspnea. Patient chest x-ray showed bibasilar opacities and retrocardiac infiltrate. Patient was admitted for acute COPD exacerbation and community acquired pneumonia. # Acute COPD exacerbation, present on admission. Ongoing and possibly worsening - Given Solu-medrol 125 mg x 1 in the emergency department. - Increased Prednisone from 40 to 60 mg on 03/28 but changed PO prednisone to IV Solu-Medrol on 03/28/17 given worsening SOB changing back to PO prednisone on 03/30 per pulmonology consult. - Continue duo nebs and albuterol nebs as needed - CT chest 03/29 without acute finding - Pulmonology consulted on 03/29 given increased oxygen requirement. Appreciate input. Will followup with recs: - Augmented clearance with acapella or flutter valve. - Increase activity. - Follow up chest imaging in 6-8 weeks to confirm radiographic resolution of airspace disease. # Acute on chronic hypoxic respiratory failure. Present on admission. Ongoing - 2ndry to pneumonia and COPD exacerbation noted above - Continue supplemental oxygen - Continue with above management - Pulmonology consult as noted # Acute community acquired pneumonia, Present on Admission - Bacterial infection seems less likely now given negative procalcitonin and positive viral PCR - Stopped Ceftriaxone. Finished 5 day course of Azithromycin on 03/27/17 - Viral PCR positive for parainfluenza 3. # Diabetes mellitus - Poorly controlled hyperglycemia with steroid treatment - Hold home medication metformin and Victoza - Continue with Lantus and titrate up - ISS bumped to high dose - HgA1C 9.1 # Acute diarrhea. Not present on admission. Resolved - rule out C. Diff if diarrhea reoccur # Anemia, normocytic, hypochromic,chronicity unknown, present on admission. Stable. - Continue to monitor # Obesity, presumed stable - Patient denies recent weight gain or weight loss # Hypertension, presumed stable - Continue home medication metoprolol tartrate 25 mg by mouth in the morning - Continue medication amlodipine 5 mg Daily # Hyperlipidemia, presumed stable - Continue Medication pravastatin # Acid reflux - Continue home medication omeprazole 20 mg daily Disposition: Home in 1-2 days pending improved breathing and oxygenation VTE Prophylaxis: Sub-Q Heparin (Unfractionated) Resuscitation Status: CPR: Attempt Resuscitation Rasta Mercado Mar 30, 2017 16:42
--- NOTE | 2017-03-30 16:45 | NUR ---
hyperglycemia Pts blood glucose was 455. Administered 12un per sliding scale. Notified MD. Addendum: 03/30/17 at 1814 by ROBERT HERRERA RN Rechecked BG 1 hour later after meal it was 360. Notified MD. No return called after first page
--- NOTE | 2017-03-30 17:26 | NUR ---
Oxygenation Lower pt from 5LNC to 4L NC. Pt maintained Sp02 between 88-92% for roughly an hour and then began to desat into mid 80s. Increased to 6L NC and pt would not go above 86%. Call ed RT. Had pt cough and use acapella. Pt was then at 100%. Lowered back down to 4.5L and patient maintained between 88-92%
[2017-03-30] MEDS ORDERED: LORazepam 0.5 mg Tablet PO ONE (23:45)
--- NOTE | 2017-03-30 23:55 | NUR ---
INSOMNIA Pt requested "something for sleep." Pt asked if she has taken melatonin prior, pt responded, "Melatonin doesn't work, the doctor during the day said he'd order me something stronger." No orders currently in pts EMAR for insommia. Noc hospitalist called, rec'd orders for OT dose of Ativan 0.5mg PO. Continue to monitor.
[2017-03-31] VITALS (7 sets, daily range): BP systolic 139–161; BP diastolic 71–73; PULSE 67–89; RESP 18–24; O2SAT 86–95
[2017-03-31] MEDS: Heparin 5,000 Unit/mL Inj SUBQ SCH ×3 (00:19→17:14)
[2017-03-31 05:38] LABS: BASOPHILS % (AUTO) 0.2 % (0-3); EOSINOPHILS % (AUTO) 1.8 % (0-5); MONOCYTES % (AUTO) 9.7 % (4-12); Mean Corpuscular Hemoglobin 25.4 pg (27.0-35.0); Mean Corpuscular Volume 84.7 fL (81-100); NEUTROPHILS % (AUTO) 74.9 % (40-74); Platelet Count 251 bil/L (150-400)
[2017-03-31] MEDS: Pantoprazole 40 mg ER24 Tablet PO SCH (05:41)
[2017-03-31 06:07] LABS: Magnesium 1.8 mg/dL (1.6-2.6)
--- NOTE | 2017-03-31 06:28 | NUR ---
Transfer of care Took over for Izabela De La Vega at 0300. patients blood sugar 165. assessment completed. patient informed of plan of care. chest xray in the AM at 0630. Patient denies pain/discomfort. refusing to wear CPOX at this time. states it beeps for no reason. explained to patient the importance of CPOX she continued to refuse. will continue to monitor and spot check o2 levels as needed. patient does not appear to be in respiratory distress at this time.
[2017-03-31] MEDS: Insulin LISPRO 300 Unit/3 mL Inj SUBQ SCH ×4 (07:38→21:53)
[2017-03-31] MEDS: Budesonide 0.5 mg/2 mL Inhalation Solution NEB SCH ×2 (07:52→20:33)
[2017-03-31] MEDS: Albuterol-Ipratropium 3 mL Inhalation Solution NEB SCH ×4 (07:52→20:33)
[2017-03-31] MEDS: guaiFENesin 600 mg ER12 Tablet PO SCH ×2 (08:19→20:49)
[2017-03-31] MEDS: buPROPion SR 100 mg ER12 Tablet PO SCH ×2 (08:19→20:48)
[2017-03-31] MEDS: predniSONE 20 mg Tablet PO SCH (08:19)
[2017-03-31] MEDS: Insulin GLARgine 100 Unit/mL Syringe SUBQ SCH ×2 (08:20→21:52)
--- NOTE | 2017-03-31 15:16 | PCM.PNMED ---
Subjective Date of Service Mar 31, 2017 Subjective Patient seen and examined today. Says she wants to go home. Her breathing is better as per her. Still wheezing. Vitals stable. Exam Vital Signs Vital Sign - Last Date Time Temp Pulse Resp B/P Pulse Ox O2 Delivery O2 Flow Rate FiO2 03/31/17 14:10 Supplement Oxygen 03/31/17 13:25 36.7 76 20 139/71 90 4.00 Intake and Output 03/30/17 03/30/17 03/31/17 Cumulative From/Thru 15:00 23:00 07:00 03/23/17 15:18 - 03/31/17 06:33 Intake Total 1536 ml 350 ml 52390 ml Output Total 1150 ml 700 ml 26567 ml Balance 386 ml -350 ml 1977 ml Intake Oral 1536 ml 350 ml 56200 ml IV Total 390 ml Output Urine Total 1150 ml 700 ml 69286 ml Stool Total 5 ml # Voids 26 # Bowel Movements 0 0 7 Exam General: Alert, Cooperative, No Acute Distress Head: Normal Eyes: PERRLA, EOMI, Scleral Anicteric Nose: Mucous Membr Moist/Kinder Mouth: Mucous Membranes Dry Neck: Supple Chest & Lungs: Chest Wall Normal, Inspiratory wheezes (bilat), Expiratory wheezes (bilat) Cardiovascular: Regular Rate/Rhythm Abdomen: Non-tender, Non-distended, Normoactive bowel tones, Soft Extremities: No cyanosis/clubbing/edema bilat Neurological: Grossly Neurologically Intact, Normal Speech Lab and Diagnostics Result Diagram: 03/31/17 0517 03/31/17 0517 X-Rays, CTs and MRIs Date of Service: 03/23/17 1600 PROCEDURE: X-RAY CHEST, TWO VIEWS INDICATIONS: SOB - DIAGNOSIS PNEUM FINDINGS: Surgical changes and devices: Prosthetic valve is noted. Lungs and pleura: Linear areas of opacity are present within the bases bilaterally. Previous appearance of bibasilar opacities appear slightly improved , with with the persistence of a retrocardiac opacity. Mediastinum: Mediastinal contours are normal. Heart size is normal. Bones and chest wall: No suspicious bony abnormalities. Soft tissues appear unremarkable. IMPRESSION: Slight improvement in previous bibasilar opacities with persistent linear opacities. The latter likely represents atelectasis. Persistent. The bibasilar opacities including within the retrocardiac region are suspicious for infiltrates. Dictated by: Gina Newell M.D. on 03/23/2017 at 16:45 Approved by: Gina Newell M.D. on 03/23/2017 at 16:46 Date of Service: 03/29/17 1210 PROCEDURE: CT CHEST WITH CONTRAST ([id number]) IMPRESSION: 1. Densities in the right middle and lower lobes, as well as left lower lobe, are most likely atelectasis. 2. Indeterminate subcentimeter nodules bilaterally. Recommend followup CT (see enclosed recommendation). Fleischner Society criteria for SOLID lung nodule followup. Nodule size (mm)Low-risk patientHigh-risk [id number] follow-up neededFollow-up at 12 mo; if no change, no further follow-up>[id number] CT at 12 mo; if no change, no further follow-up needed.Initial follow-up CT at 6-12 mo, then 18-24 mo if no change. >6-8Initial follow-up CT at 6-12 mo, then 18-24 mo if no change. Initial follow-up CT at 3-6 mo, then 9-12 mo and 24 mo if no change. > 8Follow-up CT at 3, 9, 24 mo. Or PET and/or biopsy.Same as for low-risk pts. Dictated by: Jose Vázquez M.D. on 03/29/2017 at 13:41 Approved by: Jose Vázquez M.D. on 03/29/2017 at 13:56 Assessment & Plan 76-year-old female with history of COPD on home oxygen 2 L at baseline, diabetes mellitus and prior hospitalizations for COPD exacerbation and pneumonia requiring intubation who presented to the ED with 5 days of productive cough clear sputum and shortness of breath and dyspnea. Patient chest x-ray showed bibasilar opacities and retrocardiac infiltrate. Patient was admitted for acute COPD exacerbation and community acquired pneumonia. # Acute COPD exacerbation, present on admission. Improved today - Given Solu-medrol 125 mg x 1 in the emergency department. - Increased Prednisone from 40 to 60 mg on 03/28 but changed PO prednisone to IV Solu-Medrol on 03/28/17 given worsening SOB changing back to PO prednisone on 03/30 per pulmonology consult. - Continue duo nebs and albuterol nebs as needed - CT chest 03/29 without acute finding - Pulmonology consulted on 03/29 given increased oxygen requirement. Appreciate input. Will followup with recs: - Augmented clearance with acapella or flutter valve. - Increase activity. - Follow up chest imaging in 6-8 weeks to confirm radiographic resolution of airspace disease. # Acute on chronic hypoxic respiratory failure. Present on admission. Ongoing - 2ndry to pneumonia and COPD exacerbation noted above - Continue supplemental oxygen - Continue with above management - Pulmonology consult as noted # Acute community acquired pneumonia, Present on Admission - Bacterial infection seemed less likely, however the pct has trending up, will monitor - Stopped Ceftriaxone. Finished 5 day course of Azithromycin on 03/27/17 - Viral PCR positive for parainfluenza 3. # Diabetes mellitus - Poorly controlled hyperglycemia with steroid treatment - Hold home medication metformin and Victoza - Continue with Lantus and titrate up - ISS bumped to high dose - HgA1C 9.1 # Acute diarrhea. Not present on admission. Resolved - rule out C. Diff if diarrhea reoccur # Anemia, normocytic, hypochromic,chronicity unknown, present on admission. Stable. - Continue to monitor # Obesity, presumed stable - Patient denies recent weight gain or weight loss # Hypertension, presumed stable - Continue home medication metoprolol tartrate 25 mg by mouth in the morning - Continue medication amlodipine 5 mg Daily # Hyperlipidemia, presumed stable - Continue Medication pravastatin # Acid reflux - Continue home medication omeprazole 20 mg daily Disposition: Home in 1-2 days pending improved breathing and oxygenation VTE Prophylaxis: Sub-Q Heparin (Unfractionated) Resuscitation Status: CPR: Attempt Resuscitation Bogdan Elmore MD Mar 31, 2017 15:16
--- NOTE | 2017-03-31 16:08 | PCM.PNMED ---
Subjective Date of Service Mar 31, 2017 Subjective Doing well. No new complaints. Pleased with the Accapella valve and planning to take it home. O2 weaned to 4 L/min. Cough minimal and nonproductive Exam Vital Signs Vital Sign - Last Date Time Temp Pulse Resp B/P Pulse Ox O2 Delivery O2 Flow Rate FiO2 03/31/17 15:45 84 20 91 Nasal Cannula 4.00 03/31/17 13:25 36.7 139/71 Intake and Output 03/30/17 03/30/17 03/31/17 Cumulative From/Thru 15:00 23:00 07:00 03/23/17 15:18 - 03/31/17 06:33 Intake Total 1536 ml 350 ml 67744 ml Output Total 1150 ml 700 ml 67413 ml Balance 386 ml -350 ml 1977 ml Intake Oral 1536 ml 350 ml 11414 ml IV Total 390 ml Output Urine Total 1150 ml 700 ml 80387 ml Stool Total 5 ml # Voids 26 # Bowel Movements 0 0 7 Exam Lungs Improved air movement and rare crackles, No wheezes CV RRR, no M/G/R Lab and Diagnostics Result Diagram: 03/31/17 0517 03/31/17 0517 X-Rays, CTs and MRIs Date of Service: 03/23/17 1600 PROCEDURE: X-RAY CHEST, TWO VIEWS INDICATIONS: SOB - DIAGNOSIS PNEUM FINDINGS: Surgical changes and devices: Prosthetic valve is noted. Lungs and pleura: Linear areas of opacity are present within the bases bilaterally. Previous appearance of bibasilar opacities appear slightly improved , with with the persistence of a retrocardiac opacity. Mediastinum: Mediastinal contours are normal. Heart size is normal. Bones and chest wall: No suspicious bony abnormalities. Soft tissues appear unremarkable. IMPRESSION: Slight improvement in previous bibasilar opacities with persistent linear opacities. The latter likely represents atelectasis. Persistent. The bibasilar opacities including within the retrocardiac region are suspicious for infiltrates. Dictated by: Gina Newell M.D. on 03/23/2017 at 16:45 Approved by: Gina Newell M.D. on 03/23/2017 at 16:46 Date of Service: 03/29/17 1210 PROCEDURE: CT CHEST WITH CONTRAST ([id number]) IMPRESSION: 1. Densities in the right middle and lower lobes, as well as left lower lobe, are most likely atelectasis. 2. Indeterminate subcentimeter nodules bilaterally. Recommend followup CT (see enclosed recommendation). Fleischner Society criteria for SOLID lung nodule followup. Nodule size (mm)Low-risk patientHigh-risk [id number] follow-up neededFollow-up at 12 mo; if no change, no further follow-up>[id number] CT at 12 mo; if no change, no further follow-up needed.Initial follow-up CT at 6-12 mo, then 18-24 mo if no change. >6-8Initial follow-up CT at 6-12 mo, then 18-24 mo if no change. Initial follow-up CT at 3-6 mo, then 9-12 mo and 24 mo if no change. > 8Follow-up CT at 3, 9, 24 mo. Or PET and/or biopsy.Same as for low-risk pts. Dictated by: Jose Vázquez M.D. on 03/29/2017 at 13:41 Approved by: Jose Vázquez M.D. on 03/29/2017 at 13:56 Assessment & Plan 76-year-old female with history of COPD on home oxygen 2-3 L at baseline, diabetes mellitus and prior hospitalizations for COPD exacerbation and pneumonia requiring intubation who presented to the ED with 5 days of productive cough clear sputum and shortness of breath and dyspnea after failing PO Levoflox. Patient chest x-ray showed bibasilar opacities and retrocardiac infiltrate. IMP Acute exacerbation of COPD. I suspect she has a significant bronchospastic component to her disease. Certainly there's no changes of emphysema on the CT but she clearly has decreased air flow that seems to be improving slowly with time, steroids, bronchodilators and abx She should have full PFTs once back to her baseline in a week or two. Steroid course can be continued for another five days and then stopped without tapering. RML pneumonia. She completed course of Levoflox, Ceftriaxone, Azithro but will need a repeat CXR in the next month to confirm radiographic resolution of her infiltrate. H/O , s/p TAVR Not a contributor to this admission REC Anticipate discharge to home tomorrow. Wean O2 as tolerates Prednisone 40 mg PO q day x 5 more days then DC Outpatient followup in 7-10 days with PFTs then. Repeat CXR in 4-6 weeks to confirm clearing of the RML infiltrate VTE Prophylaxis: Sub-Q Heparin (Unfractionated) Resuscitation Status: CPR: Attempt Resuscitation Varun Gagnon MD Mar 31, 2017 16:08
--- NOTE | 2017-03-31 17:18 | DRSVH ---
PROCEDURE: X-RAY CHEST ONE VIEW, PORTABLE ([id number]) INDICATIONS: pneumonia TECHNIQUE: One view of the chest was acquired. COMPARISON: [facility], CR, XR CHEST 2VW, 03/29/2017, 8:31. [facility], CR, XR CHEST 1VW (PORTABLE), 03/21/2017, 15:10. FINDINGS: Surgical changes and devices: None. Lungs and pleura: No pleural effusions or pneumothorax. Persistent bibasilar air space opacities pr esent, slightly decreased involving the right lung base. Mediastinum: Mediastinal contours appear normal. Heart size is normal. Bones and chest wall: No suspicious bony lesions. Overlying soft tissues appear unremarkable. IMPRESSION: Bibasilar atelectasis versus aspiration or pneumonia slightly decreased involving the ri ght lung base. Correlate clinically. Dictated by: Rian IRVIN Interpreted: Tanya George MD on 03/31/2017 at 10:17 Approved by: Tanya George M.D. on 03/31/2017 at 17:16
--- NOTE | 2017-03-31 17:42 | NUR ---
Activity: Patient ambulated w/4L oxygen via NC in hallway to Family then back to room. Patient states she tolerated well, denied shortness of breath, dizziness, lightheadedness or weakness.
[2017-03-31] MEDS ORDERED: diphenhydrAMINE 2.5 mg/mL 5 mL Syrup PO ONE (21:45)
[2017-04-01] MEDS: Heparin 5,000 Unit/mL Inj SUBQ SCH ×2 (01:05→07:43)
[2017-04-01 05:40] VITALS: BP 169/83; PULSE 80; RESP 20; O2SAT 85
--- NOTE | 2017-04-01 05:49 | NUR ---
NOC PT remains on 4lNC oxygen. Early in shift her saturation was only 86% then improved after nebulizer treatment given. PT is still dyspneic at rest and with activity. PT is independent in room to BR. BG was 437 at HS. PT was noted to have eaten [employer], ice cream, sherbet and giovani crackers. 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 LUngs are mostly clear with only faint wheeze heard in LLL once. PT has intermittent, non-productive cough noted. PT received 12.5mg of benadryl once for insomnia. Slept well t/o the night. PT is planning for d/c likely today. WIll CTM for any changes in condition.
[2017-04-01 06:12] LABS: BASOPHILS % (AUTO) 0.2 % (0-3); EOSINOPHILS % (AUTO) 1.9 % (0-5); MONOCYTES % (AUTO) 9.4 % (4-12); Mean Corpuscular Hemoglobin 25.3 pg (27.0-35.0); Mean Corpuscular Volume 84.9 fL (81-100); NEUTROPHILS % (AUTO) 73.3 % (40-74); Platelet Count 244 bil/L (150-400)
[2017-04-01] MEDS: Pantoprazole 40 mg ER24 Tablet PO SCH (06:19)
[2017-04-01] MEDS: Budesonide 0.5 mg/2 mL Inhalation Solution NEB SCH (07:36)
[2017-04-01] MEDS: Albuterol-Ipratropium 3 mL Inhalation Solution NEB SCH ×2 (07:36→11:38)
[2017-04-01 07:40] VITALS: PULSE 87; RESP 20; O2SAT 90
[2017-04-01] MEDS: predniSONE 20 mg Tablet PO SCH (07:42)
[2017-04-01] MEDS: buPROPion SR 100 mg ER12 Tablet PO SCH (07:43)
[2017-04-01] MEDS: guaiFENesin 600 mg ER12 Tablet PO SCH (07:43)
[2017-04-01] MEDS: Insulin GLARgine 100 Unit/mL Syringe SUBQ SCH ×2 (07:44→08:42)
[2017-04-01] MEDS: Insulin LISPRO 300 Unit/3 mL Inj SUBQ SCH ×2 (07:44→11:40)
[2017-04-01 11:40] VITALS: PULSE 77; RESP 20; O2SAT 90
[2017-04-01] MEDS ORDERED: GUAI600T86 PO (12:47)
[2017-04-01] MEDS ORDERED: PRED-508 PO (12:47)
--- NOTE | 2017-04-01 12:50 | PCM.DIMED ---
Discharge Instructions Date of Service Apr 01, 2017 Dates of Hospitalization Mar 23, 2017 at 18:13 Discharge Diagnosis Discharge Diagnosis COPD exacerbation, parainfluenza infection Diet Discharge Diet: Diabetic Patient Instructions Follow-up with PCP in: 2 weeks (Need a follow up CXR in 4-6 weeks to see resolution of RML infiltrate. Needs PFTS 7-10 days after discharge. Needs a follow up CT in 6 months for the 6mm nodule as seen on the CT ) Bogdan Elmore MD Apr 01, 2017 12:49
--- NOTE | 2017-04-01 13:12 | NUR ---
Social Work: Discharge D: EMR Reviewed. Pt is on day 9 of hospitalization for COPD exacerbation per H&P. Per MD in AM multi-disciplinary rounds, pt is medically stable for discharge. Pt resides at home with her and per RN notes, pt has been up independent in her room. Pt uses home O2 through [facility]. Per MD/RN in AM multi-disciplinary rounds, pt does not have any discharge needs at this time. SW will continue to follow. A: Pt who is independent at baseline. P: Pt to discharge home today via POV. No anticipated discharge needs. Per MD/RN in AM multi-disciplinary rounds, pt does not have any discharge needs at this time. SW will continue to follow. JAYDON Mireles
--- NOTE | 2017-04-01 13:42 | PCM.DC.MED ---
Discharge Summary Date of Service Apr 01, 2017 Dates of Hospitalization Date of Hospital Admission Mar 23, 2017 at 18:13 Date of Discharge: Apr 01, 2017 Providers: Admitting Physician: Gladys Solorio MD Primary Care Physician: Joshua Montesinos Attending Physician: Gladys Solorio MD Diagnosis at Time of Discharge Diagnosis at Time of Discharge COPD exacerbation, parainfluenza infection Consultations Pulmonology Procedures XRay, CTs & MRIs Date of Service: 03/23/17 1600 PROCEDURE: X-RAY CHEST, TWO VIEWS INDICATIONS: SOB - DIAGNOSIS PNEUM FINDINGS: Surgical changes and devices: Prosthetic valve is noted. Lungs and pleura: Linear areas of opacity are present within the bases bilaterally. Previous appearance of bibasilar opacities appear slightly improved , with with the persistence of a retrocardiac opacity. Mediastinum: Mediastinal contours are normal. Heart size is normal. Bones and chest wall: No suspicious bony abnormalities. Soft tissues appear unremarkable. IMPRESSION: Slight improvement in previous bibasilar opacities with persistent linear opacities. The latter likely represents atelectasis. Persistent. The bibasilar opacities including within the retrocardiac region are suspicious for infiltrates. Dictated by: Gina Newell M.D. on 03/23/2017 at 16:45 Approved by: Gina Newell M.D. on 03/23/2017 at 16:46 Date of Service: 03/29/17 1210 PROCEDURE: CT CHEST WITH CONTRAST ([id number]) IMPRESSION: 1. Densities in the right middle and lower lobes, as well as left lower lobe, are most likely atelectasis. 2. Indeterminate subcentimeter nodules bilaterally. Recommend followup CT (see enclosed recommendation). Fleischner Society criteria for SOLID lung nodule followup. Nodule size (mm)Low-risk patientHigh-risk [id number] follow-up neededFollow-up at 12 mo; if no change, no further follow-up>[id number] CT at 12 mo; if no change, no further follow-up needed.Initial follow-up CT at 6-12 mo, then 18-24 mo if no change. >6-8Initial follow-up CT at 6-12 mo, then 18-24 mo if no change. Initial follow-up CT at 3-6 mo, then 9-12 mo and 24 mo if no change. > 8Follow-up CT at 3, 9, 24 mo. Or PET and/or biopsy.Same as for low-risk pts. Dictated by: Jose Vázquez M.D. on 03/29/2017 at 13:41 Approved by: Jose Vázquez M.D. on 03/29/2017 at 13:56 ECG 12 Lead Sinus or ectopic atrial rhythm * Consider anterior infarct, old . When compared with ECG of 21-Mar-2017 15:25:05, . No significant change Brief History Sharda is a pleasant 76 y/o F with a hx of COPD, diabetes mellitus, and history of previous admission for pneumonia year ago in 2015 requiring intubation, and then again hospitalized in September 2016 for COPD exacerbation and pneumonia, who presented to the ED complaining of SOB and dyspnea with associated cough productive clear sputum that began 5 days ago. Patient reports her cough initially began on Wednesday as a non productive cough that developed into a productive cough. Patient is typically on 2-3L of O2 at home at baseline, but now is on 5 L of home O2. She states that nebulizers help and she last used it prior to admission this morning with some improvement in her symptoms. She states that her symptoms are very similar to what she experienced on prior hospitalizations. Of note patient was seen in the ED on for same complaint and states that she begged the ER doc to let her go home. She states she later regretted this and realize she should have stayed in the hospital. Patient was sent home on Levaquin. Patient states her symptoms have made it difficult for her to sleep. Patient sleeps propped up in bed. Patient lives at home with her Fahad. She has been taking antibiotics as prescribed. Patient denies any recent travel, known history of TB, fevers, chills, nausea, vomiting, sore throat, sweats, sick contacts, body aches, abdominal pain, diarrhea, constipation,chest pain. CXR showed:Improvement in previous bibasilar opacities with persistent linear opacities. The latter likely represents atelectasis. Persistent. The bibasilar opacities including within the retrocardiac region are suspicious for infiltrates. In the ED, Vital signs showed: Temperature 37.5, pulse 92, respiratory rate 24, blood pressure 147/79, O2 percent 89 on 5 L nasal cannula Patient was started on medication ceftriaxone 2000 mg every 24 and azithromycin 500 mg. She was also given methyl Pred 125 mg once, Hemogram showed: WBC 8.3, H/H9.6/39.5, platelets 272, 79.3% PMNs and 12.4% lymphs. Chemistry panel otherwise normal, normal troponin, proBNP was 205, no procalcitonin available. Hospital Course 76-year-old female with history of COPD on home oxygen 2-3 L at baseline, diabetes mellitus and prior hospitalizations for COPD exacerbation and pneumonia requiring intubation who presented to the ED with 5 days of productive cough clear sputum and shortness of breath and dyspnea after failing PO Levoflox. Patient chest x-ray showed bibasilar opacities and retrocardiac infiltrate. IMP Acute exacerbation of COPD. I suspect she has a significant bronchospastic component to her disease. Certainly there's no changes of emphysema on the CT but she clearly has decreased air flow that seems to be improving slowly with time, steroids, bronchodilators and abx She should have full PFTs once back to her baseline in a week or two. Steroid course can be continued for another five days and then stopped without tapering. RML pneumonia. She completed course of Levoflox, Ceftriaxone, Azithro but will need a repeat CXR in the next month to confirm radiographic resolution of her infiltrate. H/O , s/p TAVR Not a contributor to this admission REC Anticipate discharge to home tomorrow. Wean O2 as tolerates Prednisone 40 mg PO q day x 5 more days then DC Outpatient followup in 7-10 days with PFTs then. Repeat CXR in 4-6 weeks to confirm clearing of the RML infiltrate Will need a repeat CT chest in 6 months to monitor the 6 mm nodule # Diabetes mellitus - Poorly controlled hyperglycemia with steroid treatment - Hrld home medication metformin and Victoza, to continue on discharge - Continue with Lantus and titrate up - ISS bumped to high dose - HgA1C 9.1 # Acute diarrhea. Not present on admission. Resolved - ruled out C. Diff if diarrhea reoccur # Anemia, normocytic, hypochromic,chronicity unknown, present on admission. Stable. - Continue to monitor # Obesity, presumed stable - Patient denies recent weight gain or weight loss # Hypertension, presumed stable - Continued home medication metoprolol tartrate 25 mg by mouth in the morning - Continued medication amlodipine 5 mg Daily # Hyperlipidemia, presumed stable - Continued Medication pravastatin # Acid reflux - Continued home medication omeprazole 20 mg daily Exam Vital Signs (Last) Date Time Temp Pulse Resp B/P Pulse Ox O2 Delivery O2 Flow Rate FiO2 04/01/17 11:40 77 20 90 Nasal Cannula 4.00 04/01/17 05:40 36.5 169/[address] Chest IMPRESSION: 1. Densities in the right middle and lower lobes, as well as left lower lobe, are most likely atelectasis. 2. Indeterminate subcentimeter nodules bilaterally. Recommend followup CT (see enclosed recommendation). Test 03/23/17 16:45 03/23/17 20:00 03/23/17 20:07 03/24/17 05:22 Hemoglobin A1c 9.1% (4.8-5.6) Troponin T < 0.010ug/L (0.0-0.011) Pro-B-Type Natriuretic Peptide 205.5pg/mL (0-738) Hold Whitman Top Tube Received (Received) Urine Legionella pneumophilia Ag Negative (Negative) Urine Color Yellow (YELLOW) Urine Appearance Clear (CLEAR,HAZY) Urine pH 6.0 (5.0-8.0) Urine Specific Bullock >1.030 (1.003-1.035) Urine Protein >300mg/dL (NEG,TRACE) Urine Glucose (UA) Negativemg/dL (NEGATIVE) Urine Ketones Negativemg/dL (NEGATIVE) Urine Occult Blood Negative (NEGATIVE) Urine Nitrite Negative (NEGATIVE) Urine Bilirubin Negative (NEGATIVE) Urine Urobilinogen Normalmg/dL (NORMAL) Urine Leukocyte Esterase Negative (NEGATIVE) Urine RBC 0-2/hpf (0-2) Urine WBC 0-5/hpf (0-5) Urine Epithelial Cells Moderate/hpf (NONE-MOD) Urine Crystals None seen (NONE SEEN) Urine Bacteria Few/hpf (NONE-FEW) Urine Hyaline Casts None/lpf (NONE) Urine Granular Casts None seen (NONE SEEN) Urine Waxy Casts None seen (NONE SEEN) Urine Red Blood Cell Casts None seen (NONE SEEN) Urine White Blood Cell Casts None seen (NONE SEEN) Urine Mucus None seen (None Seen) Urine Trichomonas None seen (NONE SEEN) Urine Yeast Many (NONE SEEN) Urinalysis Comment None Urine Culture Reflexed Not indicated Total Bilirubin 0.2mg/dL (0.0-1.2) Aspartate Amino Transf (AST/SGOT) 18U/L (0-50) Alanine Aminotransferase (ALT/SGPT) 16U/L (0-32) Alkaline Phosphatase 93U/L (25-165) Total Protein 6.4g/dL (6.4-8.4) Albumin 3.7g/dL (3.4-5.0) Test 03/31/17 05:17 04/01/17 05:39 Magnesium Level 1.8mg/dL (1.6-2.6) White Blood Count 11.3th/mm3 (3.8-10.1) Red Blood Count 4.90mil/mm3 (3.90-5.20) Hemoglobin 12.4g/dL (12.0-15.6) Hematocrit 41.6% (35.0-46.0) Mean Corpuscular Volume 84.9fL (81-100) Mean Corpuscular Hemoglobin 25.3pg (27.0-35.0) Mean Corpuscular Hemoglobin Concent 29.8% (32.0-37.0) Red Cell Distribution Width 16.9% (12.3-15.4) Platelet Count 244bil/L (150-400) Neutrophils (%) (Auto) 73.3% (40-74) Lymphocytes (%) (Auto) 13.1% (14-46) Monocytes (%) (Auto) 9.4% (4-12) Eosinophils (%) (Auto) 1.9% (0-5) Basophils (%) (Auto) 0.2% (0-3) Sodium Level 141mEq/L (134-144) Potassium Level 4.2mEq/L (3.5-5.2) Chloride Level 99mEq/L (97-108) Carbon Dioxide Level 27mmol/L (18-29) Blood Urea Nitrogen 26mg/dL (8-27) Creatinine 0.85mg/dL (0.57-1.00) Estimat Glomerular Filtration Rate 93mL/min (>59) Glucose Level 273mg/dL (60-99) Calcium Level 9.6mg/dL (8.5-10.1) Procalcitonin 0.05ng/mL (0.00-0.08) Microbiology Results Viral panel Organism 1 PARAINFLUENZA 3 PARAINFLUENZA 3 PCR DETECTED TIME CALLED: 1143 Discharge Medications Discharge Medications Albuterol Neb Soln (Albuterol Neb Soln) 2.5 Mg/3 Ml Vial.neb 2.5 MG INHALATION BID (Reported) Amlodipine (Amlodipine) 5 Mg Tablet 5 MG PO QAM (Reported) Budesonide (Budesonide) 1 Mg/2 Ml Ampul.neb 1 MG IH BID (Reported) Bupropion ER (Bupropion ER) 200 Mg Tablet.er 200 MG PO BID (Reported) Guaifenesin (Guaifenesin ER) 600 Mg Tab.er.12h 1,200 MG PO Q12 Prescribed by: GLADYS SOLORIO MD Insulin Glargine,Hum.rec.anlog (Toujeo Solostar) 300 Unit/Ml (1.5 Ml) Insuln.pen 140 UNIT SQ HS (Reported) Liraglutide (Victoza 3-Keagan) 0.6 Mg/0.1 Ml Pen.injctr 0.6 MG SQ HS (Reported) Metformin ER (Metformin ER) 500 Mg Tablet 1,000 MG PO BIDWM (Reported) Metoprolol Tartrate (Metoprolol Tartrate) 25 Mg Tablet 25 MG PO QAM (Reported) Omeprazole (Omeprazole) 20 Mg Capsule.dr 20 MG PO QAM (Reported) Pramipexole Dihydrochloride (Mirapex) 0.25 Mg Tablet 0.25 MG PO BIDWM (Reported ) PRAMIPEXOLE 0.25 MG (1 TABLET) IN AM AND AFTERNOON AND 0.5 MG (2 TABLET)AT HS Pramipexole Dihydrochloride (Pramipexole Dihydrochloride) 0.25 Mg Tablet 0.5 MG PO HS (Reported) PRAMIPEXOLE 0.25 MG (1 TABLET) IN AM AND AFTERNOON AND 0.5 MG (2 TABLET)AT HS Pravastatin (Pravastatin) 80 Mg Tablet 80 MG PO HS (Reported) Prednisone (PredniSONE) 20 Mg Tablet 20 MG PO BIDWM (Reported) Prednisone (Deltasone) 20 Mg Tablet 40 MG PO DAILY Prescribed by: GLADYS SOLORIO MD Tiotropium Tolna (Spiriva) 18 Mcg Cap.w.dev 18 MCG IH QAM (Reported) As needed Clobetasol Propionate (Clobetasol Propionate) 50 Ml Solution 1 APPLIC TP DAILY PRN PRN DRY PATCH (Reported) TO DRY PATCH ON SCALP Dextran 70/Hypromellose/Pf (Artificial Tears Drops) 1 Each Droperette 2 DROP BOTH_EYES Q2H PRN PRN DRY EYES (Reported) Furosemide (Furosemide) 40 Mg Tablet 40 MG PO QAM PRN PRN EDEMA (Reported) Ibuprofen (Ibuprofen) 200 Mg Capsule 400 MG PO DAILY PRN PRN For Headache ( Reported) Followup Plan Discharge Diet: Diabetic Follow-up with PCP in: 2 weeks (Need a follow up CXR in 4-6 weeks to see resolution of RML infiltrate. Needs PFTS 7-10 days after discharge. ) Gladys Solorio MD Apr 01, 2017 13:42
--- NOTE | 2017-04-01 13:43 | NUR ---
Discharge Patient given discharge orders. Patient given medication list with written times when next dose of medication is due. Patient IV removed fully intact and asymptomatic. Patient given follow up instructions. Hard copies of prescriptions given and informational packets given to patient as well. Patient in room. Patient requested discharge summary and MD notified and constructing one. Patient assisted to main entrance by staff.
== END 2017-04-01 13:51 | disposition home or self-care (01) | DRG 189 ==
LOC: SED 15:15 → MPC 18:13
PROVIDERS: ADMIT Internal Medicine; ATTEND Internal Medicine
PROC: 4A033R1 Measurement of Arterial Saturation, Peripheral, Percutaneous Approach (ICD-10-PCS; principal; 2017-03-29)
DX: J96.21 Acute and chronic respiratory failure with hypoxia (principal); J12.2 Parainfluenza virus pneumonia; J44.1 Chronic obstructive pulmonary disease with (acute) exacerbation; J44.0 Chronic obstructive pulmonary disease with (acute) lower respiratory infection; E78.5 Hyperlipidemia, unspecified; I10 Essential (primary) hypertension; K21.9 Gastro-esophageal reflux disease without esophagitis; R19.7 Diarrhea, unspecified; D64.9 Anemia, unspecified; E11.65 Type 2 diabetes mellitus with hyperglycemia; Z87.891 Personal history of nicotine dependence; Z79.4 Long term (current) use of insulin; Z95.2 Presence of prosthetic heart valve; Z79.51 Long term (current) use of inhaled steroids; Z99.81 Dependence on supplemental oxygen

== ENCOUNTER 2017-04-28 12:26 | Inpatient (IN) | payer MEDICARE ==
[2017-04-28] VITALS (9 sets, daily range): BP systolic 117–148; BP diastolic 58–69; PULSE 78–97; RESP 16–25; O2SAT 73–93
[~2017-04-28] VITALS: Ht 157.5 cm; Wt 87.6 kg
[~2017-04-28 12:26] MED LIST changes: +ALBU2.5V4 INHALATION; +AMLO5TAB2 PO; +BUDE1AMP2 IH; +BUPR200T PO; +CLOB50SO TP; +DEXT1DRO8 BOTH_EYES; +FURO40TA4 PO; +GUAI600T86 PO; +IBUP200C PO; +INSU300I SQ; -LEVO750T9 PO; +LIRA0.6P2 SQ; +METF500T7 PO; +METO25TA6 PO; +OMEP20CA11 PO; +PRAM0.252 PO; +PRAM0.256 PO; +PRAV80TA2 PO; +PRED-508 PO; +TIOT18CA3 IH; +Vancomycin Dose per Pharmacist XX ONE
--- NOTE | 2017-04-28 12:44 | ED.REPORT ---
HPI-Dyspnea / Wheezing Date of Service Apr 28, 2017 ED Provider: Dr. Bonilla Pt is a 77 year old female with a hx of DM and COPD presenting to the ED complaining of SOB worsened over the last 4 or 5 days. Associated symptoms include a cough producing white sputum. Pt is on 3 L oxygen at home but lately she has been using 5 L. Denies fever, chills, nausea or vomiting. She was recently admitted to the hospital for 10 days a month ago for pneumonia and COPD exacerbation. Pt's O2 SATs are usually around 88-92 at home. Nursing Notes Stated Complaint: SHORTNESS OF BREATH Chief Complaint: Respiratory Complaints Nursing Notes Reviewed: Yes Allergies: Coded Allergies: morphine (Verified Allergy, Intermediate, itchy rash all over body, 04/28/17 ) Scheduled Albuterol Neb Soln (Albuterol Neb Soln) 2.5 Mg/3 Ml Vial.neb 2.5 MG INHALATION BID Amlodipine (Amlodipine) 5 Mg Tablet 5 MG PO QAM Aspirin (Aspirin) 81 Mg Tablet 81 MG PO DAILY Budesonide (Budesonide) 1 Mg/2 Ml Ampul.neb 1 MG IH BID Bupropion ER (Bupropion ER) 200 Mg Tablet.er 200 MG PO BID Insulin Aspart (NovoLOG U100 Insulin Vial) 100 U/Ml U 5-20 UNIT SUBQ TIDAC Insulin Glargine,Hum.rec.anlog (Toujeo Solostar) 300 Unit/Ml (1.5 Ml) Insuln.pen 140 UNIT SQ DAILY Liraglutide (Victoza 3-Keagan) 0.6 Mg/0.1 Ml Pen.injctr 1.8 MG SQ HS Metformin ER (Metformin ER) 500 Mg Tablet 1,000 MG PO BIDWM Metoprolol Tartrate (Metoprolol Tartrate) 25 Mg Tablet 25 MG PO QAM Omeprazole (Omeprazole) 20 Mg Capsule. 20 MG PO QAM Pramipexole Dihydrochloride (Pramipexole Dihydrochloride) 0.25 Mg Tablet 0.25 MG PO TID Pravastatin (Pravastatin) 80 Mg Tablet 80 MG PO HS Tiotropium Wilmer (Spiriva) 18 Mcg Cap.w.dev 18 MCG IH QAM Scheduled PRN diphenhydrAMINE HCl (Benadryl) 25 Mg Capsule 25 MG PO HS PRN PRN General Time Seen by MD: 12:43 Chief Complaint Shortness of breath Hx Obtained From: Patient Arrived By: Wheelchair Sudden in Onset?: No Onset Occurred: 5 days ago Symptom Duration: Since onset Severity: Current: No pain currently Severity: Maximum: No pain Recent Healthcare: No recent doctor visit, Recent hospitalization Similar Sx Previous: Yes Past Medical History Past Medical History Diabetes mellitus COPD Pneumonia x2 requiring hospitalization and intubation Obesity Past Surgical History Valve replacement Smoking History Former Smoker Social History Other Social History: Good social support, Local resident Ambulatory Status Independent Review of Systems Constitutional: Denies: Chills, Fever Respiratory: Reports: Prod cough, white, Shortness of breath Complete sys rev & neg: except as marked. GI: Denies: Nausea, Vomiting Physical Exam Initial Vital Signs Vital Signs (First) Date Time Temp Pulse Resp B/P Pulse Ox O2 Delivery O2 Flow Rate FiO2 04/28/17 12:39 36.2 92 20 117/69 73 Nasal Cannula 5 Initial VS: Reviewed Head / Eyes: Atraumatic, Normocephalic, PERRL ENT: Mucous membranes moist, Conjunctiva normal, No scleral icterus Abdomen / GI: Soft, Non-tender, No guarding, No rebound, No distention Extremities: Vascular intact, Neuro intact, No swelling, No tenderness Skin: Warm, Dry, No cyanosis Neurologic: Alert, Oriented, Nonfocal Psychiatric: Mood/affect normal, Behavior normal, Normal thought content General/Constitutional: Awake, Alert Neck: Atraumatic, Supple, No meningismus Respiratory / Chest: Atraumatic Resp Distress / Stridor: Positive: Resp distress moderate Hypoxic. Severely diminished breath sounds and poor air flow. Interpretation & Diagnostics Lab Results Interpretation Result Diagram: 04/28/17 1300 04/28/17 1300 Test 04/28/17 13:00 04/28/17 13:43 White Blood Count 15.2th/mm3 (3.8-10.1) Red Blood Count 3.95mil/mm3 (3.90-5.20) Hemoglobin 9.7g/dL (12.0-15.6) Hematocrit 34.4% (35.0-46.0) Mean Corpuscular Volume 87.1fL (81-100) Mean Corpuscular Hemoglobin 24.6pg (27.0-35.0) Mean Corpuscular Hemoglobin Concent 28.2% (32.0-37.0) Red Cell Distribution Width 18.2% (12.3-15.4) Platelet Count 440bil/L (150-400) Neutrophils (%) (Auto) 88.1% (40-74) Lymphocytes (%) (Auto) 4.7% (14-46) Monocytes (%) (Auto) 5.0% (4-12) Eosinophils (%) (Auto) 0.9% (0-5) Basophils (%) (Auto) 0.2% (0-3) Sodium Level 137mEq/L (134-144) Potassium Level 4.5mEq/L (3.5-5.2) Chloride Level 93mEq/L (97-108) Carbon Dioxide Level 29mmol/L (18-29) Blood Urea Nitrogen 14mg/dL (8-27) Creatinine 0.89mg/dL (0.57-1.00) Estimat Glomerular Filtration Rate 88mL/min (>59) Glucose Level 373mg/dL (60-99) Lactic Acid Level 1.7mmol/L (0.4-2.0) Calcium Level 9.4mg/dL (8.5-10.1) Total Bilirubin 0.2mg/dL (0.0-1.2) Aspartate Amino Transf (AST/SGOT) 21U/L (0-50) Alanine Aminotransferase (ALT/SGPT) 21U/L (0-32) Alkaline Phosphatase 119U/L (25-165) Troponin T 0.013ug/L (0.0-0.011) Pro-B-Type Natriuretic Peptide 1027pg/mL (0-738) Total Protein 6.8g/dL (6.4-8.4) Albumin 2.8g/dL (3.4-5.0) Procalcitonin 0.09ng/mL (0.00-0.08) Urine Color Straw (YELLOW) Urine Appearance Hazy (CLEAR,HAZY) Urine pH 7.0 (5.0-8.0) Urine Specific Rowe 1.005 (1.003-1.035) Urine Protein Negativemg/dL (NEG,TRACE) Urine Glucose (UA) Negativemg/dL (NEGATIVE) Urine Ketones Negativemg/dL (NEGATIVE) Urine Occult Blood Trace (NEGATIVE) Urine Nitrite Negative (NEGATIVE) Urine Bilirubin Negative (NEGATIVE) Urine Urobilinogen Normalmg/dL (NORMAL) Urine Leukocyte Esterase Negative (NEGATIVE) Urine RBC 0-2/hpf (0-2) Urine WBC 0-5/hpf (0-5) Urine Epithelial Cells Occasional/hpf (NONE-MOD) Urine Crystals None seen (NONE SEEN) Urine Bacteria None/hpf (NONE-FEW) Urine Hyaline Casts None/lpf (NONE) Urine Granular Casts None seen (NONE SEEN) Urine Waxy Casts None seen (NONE SEEN) Urine Red Blood Cell Casts None seen (NONE SEEN) Urine White Blood Cell Casts None seen (NONE SEEN) Urine Mucus None seen (None Seen) Urine Trichomonas None seen (NONE SEEN) Urine Yeast None (NONE SEEN) Urinalysis Comment None Urine Culture Reflexed Not indicated ECG Interpretation Time: 13:14 Interpreted by: ED physician Normal ECG Interpretation: Normal ECG w/ rate of... (86), Normal sinus rhythm X-Ray Chest Interpretation Chest Xray Interpretation: IMPRESSION: 1. Suspect bilateral lower lobe pneumonia and superimposed atelectasis. 2. Increased pulmonary scarring suggests a degree of mild pulmonary edema. Dictated by: Jose Vázquez M.D. on 04/28/2017 at 12:23 View: Portable, 1 view Interpretation / Wet Read by: Interpret - Radiologist Re-Eval/Medical Decision Med Decision/Clinical Course Hypoxic respiratory failure due to a combination of COPD exacerbation and recurrent pneumonia. Broad-spectrum antibiotics are initiated for possible healthcare associated pneumonia. IV Solu-Medrol given. A large continuous nebulizer was given. Patient will be admitted. Re-Evaluation/Progress #1: Time of Eval: 13:03 Patient Status: Condition improved Re-Evaluation/Progress Note: O2 SAT: 96 HR: 84 RR: 28. Pt breathing improved with treatment. Re-Evaluation/Progress #2: Time of Eval: 13:50 Patient Status: Condition improved Re-Evaluation/Progress Note: Discussed lab and radiology results. Re-Evaluation/Progress #3: Time of Eval: 14:31 Patient Status: Condition improved Re-Evaluation/Progress Note: Discussed plan for admission. Pt understands and agrees. Consultation : Referral / Consult Name: Bogdan Elmore MD Consulted With: Hospitalist Call Returned at: 14:57 Ship Mate: Will see patient, Agrees with plan, Accepts admit Counseled Regarding: Diagnosis, Lab results, Need for admission Discharge & Departure Impression: Primary Impression: Healthcare associated bacterial pneumonia Disposition: ADMITTED TO HOSPITAL Discharge Condition All VS Reviewed: Yes Condition: Improved Referrals: Joshua Montesinos (PCP) Christine Attestation Portions of this note were transcribed by Fiorella Scruggs. I, Dr. Bonilla personally performed the history, physical exam and medical decision-making; I reviewed and confirmed the accuracy of the information in the transcribed note. Signed by: Christine Ortiz 04/28/2017. copies to: Joshua Montesinos Timothy S DO Apr 28, 2017 12:44 FIORELLA SCRUGGS Apr 28, 2017 12:50 Signed by: Christine Ortiz, 04/28/2017. copies to: Joshua Montesinos Timothy S DO Apr 28, 2017 12:44 FIORELLA SCRUGGS Apr 28, 2017 12:50
[2017-04-28] MEDS ORDERED: Albuterol-Ipratropium 3 mL Inhalation Solution NEB ONE (12:50)
[2017-04-28] MEDS ORDERED: 0.9% Sodium Chloride 1,000 ML IV ONE (12:50)
[2017-04-28] MEDS ORDERED: MethylprednisoLONE Sodium Succinate 62.5 mg/mL 2 mL Inj IVPUSH ONE (12:50)
[2017-04-28] MEDS ORDERED: Albuterol 2.5 mg/3 mL Inhalation Solution NEB ONE (12:50)
[2017-04-28 13:15] LABS: BASOPHILS % (AUTO) 0.2 % (0-3); EOSINOPHILS % (AUTO) 0.9 % (0-5); Mean Corpuscular Hemoglobin 24.6 pg (27.0-35.0); Mean Corpuscular Volume 87.1 fL (81-100); NEUTROPHILS % (AUTO) 88.1 % (40-74); Platelet Count 440 bil/L (150-400)
--- NOTE | 2017-04-28 13:27 | DRSVH ---
PROCEDURE: X-RAY CHEST ONE VIEW, PORTABLE ([id number]) INDICATIONS: hypoxia TECHNIQUE: One view of the chest was acquired. COMPARISON: [facility], CT, CT CHEST W CON, 03/29/2017, 13:36. [facility], C R, XR CHEST 1VW (PORTABLE), 03/31/2017, 6:15. FINDINGS: Surgical changes and devices: None. Lungs and pleura: Bilateral lower lobe infiltrates and atelectasis. There is increased pulmonary vas cularity. No pleural effusions or pneumothorax. Mediastinum: Mediastinal contours appear normal. Heart size is normal. Bones and chest wall: No suspicious bony lesions. Overlying soft tissues appear unremarkable. IMPRESSION: 1. Suspect bilateral lower lobe pneumonia and superimposed atelectasis. 2. Increased pulmonary scarring suggests a degree of mild pulmonary edema. Dictated by: Jose Vázquez M.D. on 04/28/2017 at 12:23 Approved by: Jose Vázquez M.D. on 04/28/2017 at 12:26
[2017-04-28] MEDS ORDERED: Azithromycin Inj 500 MG in Dextrose 5% w/Vial Mate 250 ML IV ONE (13:50)
[2017-04-28] MEDS ORDERED: Piperacillin-Tazo 3.375 Gm Inj 3.375 GM in Dextrose 5% Minibag Plus 50 ML IV ONE (13:50)
[2017-04-28 13:51] LABS: TROPONIN T 0.013 ug/L (0.0-0.011)
[2017-04-28 14:00] LABS: APPEARANCE,URINE HAZY (CLEAR,HAZY); COLOR,URINE STRAW (YELLOW); OCCULT BLOOD,URINE TRACE (NEGATIVE); UROBILINOGEN,URINE NORMAL (NORMAL)
[2017-04-28] MEDS ORDERED: Vancomycin Inj 1,250 MG in 0.9% Sodium Chloride 250 ML IV ONE (14:30)
[2017-04-28] MEDS ORDERED: Insulin Human REGular-Omnicell 100 Unit/mL SUBQ ONE (14:55)
[2017-04-28] MEDS ORDERED: PRAM0.256 PO (14:58)
[2017-04-28] MEDS ORDERED: INSU100V4 SUBQ (15:01)
[2017-04-28] MEDS ORDERED: DIPH25CA6 PO (15:01)
[2017-04-28] MEDS ORDERED: ASPI-973 PO (15:01)
[2017-04-28] MEDS ORDERED: LIRA0.6P2 SQ (15:07)
[2017-04-28] MEDS ORDERED: INSU100C8 SUBQ (15:07)
[2017-04-28] MEDS ORDERED: INSU300I SQ (15:07)
[2017-04-28] MEDS ORDERED: 0.9% Sodium Chloride 1,000 ML IV SCH (15:22)
[2017-04-28] MEDS ORDERED: Ondansetron 2 mg/mL 2 mL Inj IVPUSH PRN (15:25)
[2017-04-28] MEDS ORDERED: Alum-Mag Hydrox-Simeth 30 mL Suspension PO PRN ×2 (15:25→15:40)
[2017-04-28] MEDS ORDERED: Polyethylene Glycol (PEG) 17 Gm Powder PO PRN (15:40)
[2017-04-28] MEDS ORDERED: Cefepime Inj 2,000 MG in Dextrose 5% Minibag Plus 100 ML IV SCH (16:00)
[2017-04-28] MEDS: 0.9% Sodium Chloride 1,000 ML IV SCH (16:46)
[2017-04-28] MEDS: Heparin 5,000 Unit/mL Inj SUBQ SCH (17:15)
--- NOTE | 2017-04-28 17:27 | PCM.HPMED ---
Subjective Date of Service Apr 28, 2017 Primary Provider: Admitting Physician: Bogdan Elmore MD Primary Care Physician: Joshua Montesinos Attending Physician: Bogdan Elmore MD Chief Complaint: Shortness of breath History of Present Illness: 77-year-old female history of type II diabetes and advanced COPD on Brovana, Spiriva, and azithromycin 3 times weekly, who is recently discharged on March 31 for COPD exacerbation, presents to emergency department with 2 days of increasing shortness of breath with cough and sputum production, myalgias, and increased fatigue. Patient denies ongoing fever, chills, chest pain, or new diarrhea. Patient states that yesterday she woke up feeling weak and lethargic and her sputum is changed from green to yellow to clear. She has had to increase her oxygen from 3 L to 5 L. She states that she has been using Brovana and and Spiriva as indicated, and her bar finish operator down at [facility] recently started her on azithromycin which she says she is also compliant with. Patient's last admit she is positive for parainfluenza. Her chest x-ray also showed bibasilar consolidations. In emergency department the patient was started on antibiotics to cover HCAP, given 125 mg of Solu-Medrol and DuoNeb's. Chest x-ray again shows bibasilar consolidations and has been 4 weeks since her last chest x-ray. Blood work indicates a moderate leukocytosis with left shift, as well as new anemia, and glucose of 373. Review of Systems: Complete review of systems performed; pertinent positives and negatives per history of present illness, all other systems reviewed and are negative Allergies Coded Allergies: morphine (Verified Allergy, Intermediate, itchy rash all over body, 04/28/17 ) Home Medications Albuterol Neb Soln (Albuterol Neb Soln) 2.5 Mg/3 Ml Vial.neb 2.5 MG INHALATION BID Amlodipine (Amlodipine) 5 Mg Tablet 5 MG PO QAM Aspirin (Aspirin) 81 Mg Tablet 81 MG PO DAILY Budesonide (Budesonide) 1 Mg/2 Ml Ampul.neb 1 MG IH BID Bupropion ER (Bupropion ER) 200 Mg Tablet.er 200 MG PO BID Insulin Aspart (NovoLOG U100 Insulin Vial) 100 U/Ml U 5-20 UNIT SUBQ TIDAC Insulin Glargine,Hum.rec.anlog ([place]) 300 Unit/Ml (1.5 Ml) Insuln.pen 140 UNIT SQ DAILY Liraglutide (Victoza 3-[place]) 0.6 Mg/0.1 Ml Pen.injctr 1.8 MG SQ HS Metformin ER (Metformin ER) 500 Mg Tablet 1,000 MG PO BIDWM Metoprolol Tartrate (Metoprolol Tartrate) 25 Mg Tablet 25 MG PO QAM Omeprazole (Omeprazole) 20 Mg Capsule.dr 20 MG PO QAM Pramipexole Dihydrochloride (Pramipexole Dihydrochloride) 0.25 Mg Tablet 0.25 MG PO TID Pravastatin (Pravastatin) 80 Mg Tablet 80 MG PO HS Tiotropium [place] (Spiriva) 18 Mcg Cap.w.dev 18 MCG IH QAM diphenhydrAMINE HCl (Benadryl) 25 Mg Capsule 25 MG PO HS PRN PRN PMH Diabetes mellitus COPD Pneumonia x2 requiring hospitalization 03/23/17 Obesity Surgical History Valve replacement Family History No significant family history for early or chronic lung disease. Mother developed colon cancer and of this at age 60. Her father had systolic heart failure in his 70s. Social History Hx Alcohol Use: No Hx Substance Use: No Hx Tobacco Use: Yes Smoking Status: Former Smoker Living Arrangement: with Family Exam Vital Signs Vital Sign - Last Date Time Temp Pulse Resp B/P Pulse Ox O2 Delivery O2 Flow Rate FiO2 04/28/17 16:39 36.7 91 17 148/68 88 Nasal Cannula 3.00 Exam General: Pleasant age-appropriate female in moderate respiratory distress HEENT: PERRLA, EOMI, nonicteric, membranes moist Lymph: No lymphadenopathy Cardio: Regular rate and rhythm Respiratory: CTA bilaterally with coarse breath sounds and wheezing; desaturating during conversation and breathing through her mouth with nasal cannula in place Abdomen: Soft, positive bowel sounds, nontender, nondistended Extremities: No edema, 5/5 strength, sensation intact Psych: Appropriate mood and affect Neuro: CN II through XII grossly intact, sensation intact throughout Skin: No rash Lab and Diagnostics Result Diagram: 04/28/17 1300 04/28/17 1300 X-Rays, CTs and MRIs Chest x-ray 04/28/17 1. Suspect bilateral lower lobe pneumonia and superimposed atelectasis. 2. Increased pulmonary scarring suggests a degree of mild pulmonary edema Dictated by: Jose Vázquez M.D. on 04/28/2017 at 12:23 Chest x-ray on discharge 03/31/17 IMPRESSION: Bibasilar atelectasis versus aspiration or pneumonia slightly decreased involving the right lung base. Correlate clinically. Dictated by: Rian Paulino RRBalaji Interpreted: Tanya George MD on 03/31/2017 at 10: [address] on last visit 03/29/17 1. Densities in the right middle and lower lobes, as well as left lower lobe, are most likely atelectasis. 2. Indeterminate subcentimeter nodules bilaterally. Recommend followup CT (see enclosed recommendation). Dictated by: Jose Vázquez M.D. on 03/29/2017 at 13:41 Assessment & Plan 77-year-old female with recent admissions for COPD exacerbation and lower lobe consolidations presents to emergency department with shortness of breath, Acute on chronic hypoxic and hypercapnic respiratory failure; present admission ; ongoing -O2 nasal cannula with goal 88-92 -Treat underlying problem -Persistent hypoxia, ABG will be ordered COPD exacerbation; present on admission; ongoing -Presents with recent admission for COPD exacerbation and persistent basilar consolidations -Increased sputum production, shortness of breath, cough, wheezing on exam -Patient uses 3 L O2 at home recently had to increase to 5 L -DuoNeb every 4 while awake -Methylprednisolone 40 mg IV daily -Antibiotics as below -procalcitonin ordered -Sputum culture -Respiratory PCR -Consider pulmonary consult as this patient was recently seen by pulmonology on last admit -Patient denies pleuritic pain which may have suggested PE, and this has been gradually worsening without acute onset Hospital-acquired Pneumonia versus pulmonary nodules -CXR/CT in early March showed same densities in the lower lobes is unclear whether this was pneumonia or atelectasis, with some improvement noted prior to discharge -Previously diagnosed with parainfluenza; MRSA screen was negative -Patient was treated with ceftriaxone, levofloxacin, and azithromycin -Procalcitonin -Vancomycin, cefepime, and levofloxacin -PCR respiratory panel -Blood and sputum cultures -Strep and legionella urine antigens -MRSA screen -CT chest tomorrow to again assess for nodules/consolidation characteristics -The consolidations have not drastically improved over the last 4 weeks Elevated troponin; present on admission; ongoing -No reported chest pain and very mild elevation of troponin; possibly due to increased cardiac demand -BNP is elevated; EKG sinus rhythm with no ST changes -Trend troponin -Repeat EKG in a.m. -consider cardio consult if troponin continues to climb -Consider echo as I do not see one on the chart Type II diabetes; present on admission; ongoing -Last A1c was 9.1 -Home medication: Metformin 1000 mg twice a day, Lantus 140 units subcutaneous daily, and NovoLog 5-20 units subcutaneous 3 times a day before meals -Hold metformin -Lantus 35 units in the evening, and 35 units a.m. -High-dose correctional with preprandial 5 units -Hold Victoza -Serum ketone Acute normocytic hypochromic anemia and thrombocytosis; present on admission; ongoing -Patient discharged with a hemoglobin of 12.4 at the beginning of last month; currently 9.7 -Increased RDW shows adequate bone marrow response -Hemoccult -Iron and B12/folate studies -Thrombocytosis may hint at acute blood loss but unsure source Hypertension; present on admission; ongoing -Continue amlodipine Hypomagnesemia -replace with 2mg Hypoalbuminemia-log yard derrick operator consult; replace below 2.0 Hyperlipidemia-hold statin for the moment Anxiety/depression-continue bupropion Disposition: Patient is being admitted to inpatient status with expected length of stay greater than two midnights due to severity of presentation, duration of treatment, and risks of adverse events disposition Full code Pain Evaluation: Adequate Pain Control VTE Prophylaxis: Sub-Q Heparin (Unfractionated) Resuscitation Status: CPR: Attempt Resuscitation Attending Statement Patient seen and examined seperately. Agree with the assessment and planning before. Considering patient's significant hypoxia, low threshold for non invasive ventilation support. Robby Barroso DO Apr 28, 2017 17:27 Bogdan Elmore MD Apr 28, 2017 21:12
[2017-04-28] MEDS ORDERED: Glucose 40% Oral Gel 15 Gm Tube PO PRN (17:50)
[2017-04-28] MEDS ORDERED: Magnesium Sulf 2 Gm/50mL Water 2 GM in IV Premix 1 EACH IV ONE (17:50)
--- NOTE | 2017-04-28 18:14 | PCM.CONPHA ---
Subjective Date of Service: Apr 28, 2017 Reason for Pharmacy Consult: Vancomycin Dosing Objective Vital Signs Date Time Temp Pulse Resp B/P Pulse Ox O2 Delivery O2 Flow Rate FiO2 04/28/17 17:34 Supplement Oxygen 04/28/17 16:39 36.7 91 17 148/68 88 Nasal Cannula 3.00 04/28/17 16:13 36.2 93 23 123/58 93 Nasal Cannula 7 04/28/17 14:00 93 23 93 04/28/17 13:15 87 25 93 04/28/17 13:04 87 20 93 OxyMask 7 04/28/17 12:39 36.2 92 20 117/69 73 Nasal Cannula 5 Weight (Kilograms): 88.500 Height (Feet): 5 Height (Inches): 2.00 Test 04/28/17 13:00 04/28/17 13:43 White Blood Count 15.2th/mm3 (3.8-10.1) Red Blood Count 3.95mil/mm3 (3.90-5.20) Hemoglobin 9.7g/dL (12.0-15.6) Hematocrit 34.4% (35.0-46.0) Mean Corpuscular Volume 87.1fL (81-100) Mean Corpuscular Hemoglobin 24.6pg (27.0-35.0) Mean Corpuscular Hemoglobin Concent 28.2% (32.0-37.0) Red Cell Distribution Width 18.2% (12.3-15.4) Platelet Count 440bil/L (150-400) Neutrophils (%) (Auto) 88.1% (40-74) Lymphocytes (%) (Auto) 4.7% (14-46) Monocytes (%) (Auto) 5.0% (4-12) Eosinophils (%) (Auto) 0.9% (0-5) Basophils (%) (Auto) 0.2% (0-3) Sodium Level 137mEq/L (134-144) Potassium Level 4.5mEq/L (3.5-5.2) Chloride Level 93mEq/L (97-108) Carbon Dioxide Level 29mmol/L (18-29) Blood Urea Nitrogen 14mg/dL (8-27) Creatinine 0.89mg/dL (0.57-1.00) Estimat Glomerular Filtration Rate 88mL/min (>59) Glucose Level 373mg/dL (60-99) Lactic Acid Level 1.7mmol/L (0.4-2.0) Calcium Level 9.4mg/dL (8.5-10.1) Magnesium Level 1.4mg/dL (1.6-2.6) Total Bilirubin 0.2mg/dL (0.0-1.2) Aspartate Amino Transf (AST/SGOT) 21U/L (0-50) Alanine Aminotransferase (ALT/SGPT) 21U/L (0-32) Alkaline Phosphatase 119U/L (25-165) Troponin T 0.013ug/L (0.0-0.011) Pro-B-Type Natriuretic Peptide 1027pg/mL (0-738) Total Protein 6.8g/dL (6.4-8.4) Albumin 2.8g/dL (3.4-5.0) Procalcitonin 0.09ng/mL (0.00-0.08) Urine Color Straw (YELLOW) Urine Appearance Hazy (CLEAR,HAZY) Urine pH 7.0 (5.0-8.0) Urine Specific [place] 1.005 (1.003-1.035) Urine Protein Negativemg/dL (NEG,TRACE) Urine Glucose (UA) Negativemg/dL (NEGATIVE) Urine Ketones Negativemg/dL (NEGATIVE) Urine Occult Blood Trace (NEGATIVE) Urine Nitrite Negative (NEGATIVE) Urine Bilirubin Negative (NEGATIVE) Urine Urobilinogen Normalmg/dL (NORMAL) Urine Leukocyte Esterase Negative (NEGATIVE) Urine RBC 0-2/hpf (0-2) Urine WBC 0-5/hpf (0-5) Urine Epithelial Cells Occasional/hpf (NONE-MOD) Urine Crystals None seen (NONE SEEN) Urine Bacteria None/hpf (NONE-FEW) Urine Hyaline Casts None/lpf (NONE) Urine Granular Casts None seen (NONE SEEN) Urine Waxy Casts None seen (NONE SEEN) Urine Red Blood Cell Casts None seen (NONE SEEN) Urine White Blood Cell Casts None seen (NONE SEEN) Urine Mucus None seen (None Seen) Urine Trichomonas None seen (NONE SEEN) Urine Yeast None (NONE SEEN) Urinalysis Comment None Urine Culture Reflexed Not indicated Assessment/Plan Assessment/Plan Vancomycin management per pharmacy Indication: pneumonia (recent hospitalization) Goal vancomycin trough: 15-20 Pertinent information: - Nephrotic risks: age, diabetes, obesity - SCr: 0.89, CrCl: ~55 mL/min - Received vancomycin 1250 mg IV one time in ED at 1717 (~14 mg/kg). Patient is at high risk for kidney injury as well as accumulation (due to weight ). Additionally, CrCl calculations tend to overestimate kidney function in the elderly. Will aim for lower side of trough range. Give vancomycin 750 mg IV Q12H (pharmacokinetic estimates trough of 15.4). Vancomycin trough has been ordered for 04/30/17 at 0500. Pharmacy to continue to monitor and dose vancomycin. Thank you, Christiano Pollock Pharmacist Christiano Pollock Apr 28, 2017 18:14
--- NOTE | 2017-04-28 18:16 | NUR ---
Admit: Arrived to [facility] @ approx 1630 via stretcher. Ambulated from stretcher to bed. Stand up scale obtained. O2 3L 88%, baseline home o2 is 2L w/O2 sats 88-92%. at bedside. Alert & oriented. Oriented to room and call light system. MRSA swab and Resp Viral swab obtained, Droplet and Contact Precautions in place. IV antibiotics infusing. Bed in low and locked position, bed rails up x 2, non- skid socks on for safety, call light within reach.
[2017-04-28 18:37] LABS: Unsaturated Iron Binding 213.6 ug/dL
[2017-04-28] MEDS: Albuterol-Ipratropium 3 mL Inhalation Solution NEB SCH ×2 (18:37→20:16)
[2017-04-28] MEDS: buPROPion SR 100 mg ER12 Tablet PO SCH (20:47)
[2017-04-28] MEDS: Insulin LISPRO 300 Unit/3 mL Inj SUBQ SCH (20:54)
[2017-04-28] MEDS: Cefepime Inj 2,000 MG in Dextrose 5% Minibag Plus 100 ML IV SCH (21:00)
[2017-04-28] MEDS: Insulin GLARgine 100 Unit/mL Syringe SUBQ SCH (21:05)
[2017-04-29] VITALS (11 sets, daily range): BP systolic 124–158; BP diastolic 59–76; PULSE 80–95; RESP 17–28; O2SAT 83–95
[2017-04-29] MEDS: Heparin 5,000 Unit/mL Inj SUBQ SCH ×4 (00:46→23:51)
[2017-04-29 03:23] LABS: BASOPHILS % (AUTO) 0.2 % (0-3); EOSINOPHILS % (AUTO) 0 % (0-5); MONOCYTES % (AUTO) 4.1 % (4-12); Mean Corpuscular Hemoglobin 24.7 pg (27.0-35.0); Mean Corpuscular Volume 85.8 fL (81-100); NEUTROPHILS % (AUTO) 89.6 % (40-74); Platelet Count 426 bil/L (150-400)
[2017-04-29] MEDS: 0.9% Sodium Chloride 1,000 ML IV SCH ×2 (06:08→11:39)
[2017-04-29] MEDS: Vancomycin Inj 750 MG in 0.9% Sodium Chloride 250 ML IV SCH ×3 (06:11→20:49)
[2017-04-29] MEDS: Albuterol-Ipratropium 3 mL Inhalation Solution NEB SCH ×4 (06:13→21:16)
--- NOTE | 2017-04-29 06:40 | NUR ---
SOB Pt very SOB with any kind of exertion, unable to speak in full sentences. Instructed pt safe energies and not move around too much. Pt requested PRN MD mihaela paged and order received. Sats were at 86-87% on 4 L O2 per NC, O2 increased to 5L and pt was able to maintain sats between 88-92%. Pt denies pain all shift.
[2017-04-29] MEDS: Insulin LISPRO 300 Unit/3 mL Inj SUBQ SCH ×4 (07:57→20:26)
[2017-04-29] MEDS: Insulin GLARgine 100 Unit/mL Syringe SUBQ SCH ×2 (07:58→20:25)
[2017-04-29] MEDS: levoFLOXacin Inj 750 MG in IV Premix 1 EACH IV SCH (07:58)
[2017-04-29] MEDS: buPROPion SR 100 mg ER12 Tablet PO SCH ×2 (07:59→20:16)
[2017-04-29 08:13] LABS: Vitamin B12 736 pg/mL (211-946)
[2017-04-29] MEDS ORDERED: MethylprednisoLONE Sodium Succinate 40 mg/mL Inj IVPUSH SCH (08:30)
--- NOTE | 2017-04-29 08:52 | PCM.PNMED ---
Subjective Date of Service Apr 29, 2017 Subjective Patient seen and examined. She wants to go home she says as her daughter is coming in town. Vitals stable at this point. Exam Vital Signs Vital Sign - Last Date Time Temp Pulse Resp B/P Pulse Ox O2 Delivery O2 Flow Rate FiO2 04/29/17 06:13 91 20 94 Nasal Cannula 4.00 04/29/17 04:29 36.6 147/76 Intake and Output 04/28/17 04/28/17 04/29/17 Cumulative From/Thru 15:00 23:00 07:00 04/28/17 12:39 - 04/29/17 06:28 Intake Total 1000 ml 1459 ml 2459 ml Balance 1000 ml 1459 ml 2459 ml IV Total 1000 ml 1459 ml 2459 ml Lab and Diagnostics Result Diagram: 04/29/17 0310 04/29/17 0310 X-Rays, CTs and MRIs Chest x-ray 04/28/17 1. Suspect bilateral lower lobe pneumonia and superimposed atelectasis. 2. Increased pulmonary scarring suggests a degree of mild pulmonary edema Dictated by: Jose Vázquez M.D. on 04/28/2017 at 12:23 Chest x-ray on discharge 03/31/17 IMPRESSION: Bibasilar atelectasis versus aspiration or pneumonia slightly decreased involving the right lung base. Correlate clinically. Dictated by: Rian Paulino RR Interpreted: Tanya George MD on 03/31/2017 at 10: [address] on last visit 03/29/17 1. Densities in the right middle and lower lobes, as well as left lower lobe, are most likely atelectasis. 2. Indeterminate subcentimeter nodules bilaterally. Recommend followup CT (see enclosed recommendation). Dictated by: Jose Vázquez M.D. on 03/29/2017 at 13:41 Assessment & Plan 77-year-old female with recent admissions for COPD exacerbation and lower lobe consolidations presents to emergency department with shortness of breath, Acute on chronic hypoxic and hypercapnic respiratory failure; present admission ; ongoing -O2 nasal cannula with goal 88-92 -Treat underlying problem -Improving, likely 2/2 copd exacerbation COPD exacerbation; present on admission; ongoing -Presents with recent admission for COPD exacerbation and persistent basilar consolidations -Increased sputum production, shortness of breath, cough, wheezing on exam -DuoNeb every 4 while awake -Methylprednisolone 40 mg IV Q8H -Antibiotics as below -procalcitonin mildly elevated -Sputum culture pending -Respiratory PCR -will consider pulm consult Hospital-acquired Pneumonia versus pulmonary nodules -CXR/CT in early March showed same densities in the lower lobes is unclear whether this was pneumonia or atelectasis, with some improvement noted prior to discharge -Previously diagnosed with parainfluenza; MRSA screen was negative -Patient was treated with ceftriaxone, levofloxacin, and azithromycin -Procalcitonin -Vancomycin, cefepime, and levofloxacin -PCR respiratory panel -Blood cultures pending - sputum cultures with normal karlos -Strep and legionella - negative -MRSA screen - negative -CT chest tomorrow to again assess for nodules/consolidation characteristics -The consolidations have not drastically improved over the last 4 weeks Elevated troponin; present on admission; ongoing -No reported chest pain and very mild elevation of troponin; possibly due to increased cardiac demand -BNP is elevated; EKG sinus rhythm with no ST changes -Trops trended down to negative -Repeat EKG in a.m. -Echo ordered Type II diabetes; present on admission; ongoing -Last A1c was 9.1 -Home medication: Metformin 1000 mg twice a day, Lantus 140 units subcutaneous daily, and NovoLog 5-20 units subcutaneous 3 times a day before meals -Hold metformin -Lantus 50 bid -High-dose correctional with preprandial 5 units -Hold Victoza -Serum ketone Acute normocytic hypochromic anemia and thrombocytosis; present on admission; ongoing -Patient discharged with a hemoglobin of 12.4 at the beginning of last month; currently 9.7 -Increased RDW shows adequate bone marrow response -Hemoccult -Iron and B12/folate studies -Thrombocytosis may hint at acute blood loss but unsure source Hypertension; present on admission; ongoing -Continue amlodipine Hypomagnesemia -replace with 2mg Hypoalbuminemia-metal filer consult; replace below 2.0 Hyperlipidemia-hold statin for the moment Anxiety/depression-continue bupropion Disposition: Patient is being admitted to inpatient status with expected length of stay greater than two midnights due to severity of presentation, duration of treatment, and risks of adverse events disposition Full code VTE Prophylaxis: Sub-Q Heparin (Unfractionated) VTE Mechanical Devices: Intermittant Pneumatic CD Resuscitation Status: CPR: Attempt Resuscitation Time spent 35 mins Bogdan Elmore MD Apr 29, 2017 08:52
[2017-04-29] MEDS ORDERED: Insulin GLARgine 100 Unit/mL Syringe SUBQ ONE (09:05)
[2017-04-29] MEDS: Cefepime Inj 2,000 MG in Dextrose 5% Minibag Plus 100 ML IV SCH ×2 (11:05→22:56)
[2017-04-29] MEDS ORDERED: Dextrose 10% 250 ML IV PRN (13:25)
--- NOTE | 2017-04-29 13:49 | DRSVH ---
[facility] [address] [place] [address] Echocardiogram Report Name: ROYAL SILVA LStudy Date: 04/29/2017 Height: 62 in Hospital Exam Location: [facility] Weight: 198 lb Gender: Female BSA: 1.9 m2 : 1940 Age: 77 yrs BP: 147/76 mmHg Reason For Study: SOB Ordering Physician: Performed By: Halina Jimenes Interpretation Summary Left ventricular wall thickness is mildly increased. Left ventricular systolic function is normal without focal wall motion abnormalities. The ejection fraction is estimated to be 60-65%. Diastolic function could not be accurately assessed due to contradictory data. The right ventricle is moderately dilated. Right ventricular systolic function is moderately reduced. The right ventricular systolic pressure is estimated at 33 mmHg assuming a right atrial pressure of 15 mm Hg. Borderline left atrial enlargement. The right atrium is severely dilated. There is mild to moderate mitral regurgitation. There is no other significant valvular heart disease. The aortic root is normal size. Procedure: A two-dimensional transthoracic echocardiogram with color flow and Doppler was performed. The study quality was technically adequate. There is no prior echocardiogram noted for this patient. The patient was in normal sinus rhythm during the exam. Left Ventricle: The left ventricle is normal in size. Left ventricular wall thickness is mildly increased. Left ventricular systolic function is normal without focal wall motion abnormalities. The ejection fraction is estimated to be 60-65%. Diastolic function could not be accurately assessed due to contradictory data. Right Ventricle: The right ventricle is moderately dilated. Right ventricular systolic function is moderately reduced. Atria: Borderline left atrial enlargement. The right atrium is severely dilated. The interatrial septum is intact with no evidence for an atrial septal defect. Mitral Valve: The mitral valve leaflets appear mildly thickened, but open well. The mitral valve leaflets are slightly calcified. There is mild to moderate mitral regurgitation. Aortic Valve: The aortic valve is moderately calcified. The peak aortic velocity is 1.9 m/sec. The aortic valve mean gradient is 7 mmHg. Severity ratio is 0.48. Tricuspid Valve: The tricuspid valve leaflets are thin and pliable. There is trace tricuspid regurgitation. The right ventricular systolic pressure is estimated at 33 mmHg assuming a right atrial pressure of 15 mm Hg. Pulmonic Valve: The pulmonic valve is not well visualized. There is a trace or physiologic amount of pulmonic regurgitation. There is no other significant valvular heart disease. Great Vessels: The aortic root is normal size. The ascending aorta is at the upper limits of normal in size. The IVC is dilated (diameter is greater than 2.1 cm) and it collapses less than 50% with a sniff. This suggests a high right atrial pressure of 15 mm Hg. Pericardium/ Pleura There is no pericardial effusion. There is no pleural effusion. MMode/2D Measurements & Calculations LVIDd: 4.7 cm LA dimension: 4.0 cm RA long axis Ao root diam LVIDs: 3.1 cm FS: 34.2 % LA A2 area: 15.6 cm RA area asc Aorta EPSS: 0.91 cm LA A4 area: 16.3 cm Diam: 3.4 cm IVSd: 1.3 cm LA length (vol): 4.8 cm : 25.1 cm LVPWd: 1.1 cm LA vol: 45.4 ml RA vol LA vol index : 100.ml RA : 52.8 mm/ IVC diam: 2.4 cm RVDd major : 6.9 cm LV winkler. diameter/BSA LV sys. diameter/BSA RVD1 (basal) RVD2 (mid) (cm/m^2): 2.5 (cm/m^2): 1.6 : 4.4 cm TAPSE: 1.6 cm Doppler Measurements & Calculations Ao V2 max MV E max ministerio MV E/A: 1.0 TR max ministerio : 188.9 cm/sec : 108.9 cm/sec Med Peak E' Ministerio : 161.8 cm/sec Ao max PG MV A max ministerio TR max PG : 14.3 mmHg : 108.9 cm/sec E/E' med: 30.1 : 17.5 mmHg Ao mean PG MV P1/2t: 58.4 msec Lat Peak E' Ministerio PA V2 max : 64.6 cm/sec LVOT Max Ministerio E/E' lat: 17.0 PA mean PG : 76.5 cm/sec E/e' average: 23.6 : 0.87 mmHg sev ratio PA Accel Time : 0.09 sec MV dec time MV P1/2t max ministerio Ao V2 mean LV V1 max PG : 0.20 sec : 117.9 cm/sec MVA(P1/2t): 3.8 cm2 Ao V2 VTI: 36.0 cm LV V1 VTI: 17.4 cm PA V2 mean : 43.6 cm/sec Reading Physician:PM
[2017-04-29] MEDS: Albuterol 1.25 mg/3 mL Inhalation Solution NEB PRN (15:38)
[2017-04-29] MEDS: MethylprednisoLONE Sodium Succinate 40 mg/mL Inj IVPUSH SCH ×2 (16:28→23:51)
--- NOTE | 2017-04-29 16:44 | NUR ---
Social Work-initial assessment: Data:See initial assessment. Pt is a 77 y/o female who was admitted on 04/28/17 for pneumonia per H&P. Pt's insurance is [employer] and PCP is Joshua Montesinos DO. EMR reviewed. SW met with pt at bedside, SW role explained. Pt is alert and oriented x3. Pt resides at home with her where she remains independent with ADLs. Pt uses a cane at baseline and does not drive. Pt has no HH or SNF history. Pt uses baseline O2 through [place]. SW discussed DPOA/ advanced directive, pt confirms this has not been completed, SW provided pt with paperwork. Pt has capacity to self care, no concerns noted from MD ground instructor advanced. SW provided pt with discharge planning checklist and encouraged her to call with any questions, phone number provided. Pt's to provide transport home. No anticipated discharge needs. SW will continue to follow if needs arise. Assessment:Pt who is independent at baseline. Plan:Pt to discharge home when medically stable via POV. No anticipated discharge needs. SW will continue to follow if needs arise. JAYDON Blackwell Addendum: 04/29/17 at 1653 by YEISON GAITAN Amended: Links added.
--- NOTE | 2017-04-29 18:44 | NUR ---
SOB/O2 Needs Pt SOB at rest, CPOX in place - satting around 88-90% on 4L NC. Pt very pleasant, but a bit fidgety with movements, reports having RLS and appears to be anxious. With any activity and when conversing, pt sats will drop to mid 80s. Made several attempts to titrate O2, but pt continues to set off alarm with activity. Instructed to try and relax. Limit movement and talk as necessary. Pt mostly cooperative but did pull out IV site once and will not always follow direction given. Continuing to monitor for safety. Nebs requested as needed and scheduled.
[2017-04-29] MEDS: Vancomycin Dose per Pharmacist XX SCH (20:49)
--- NOTE | 2017-04-29 23:55 | NUR ---
Fall Pt reports slipped with left bottom on the floor when up to [facility], she did not use call light when she got up despite pt has been instructed to do so. Pt has already got up from floor before RN came to her room. she alert and orientedx3, no acute distress, denies hit her head, denies any pain, no bruise or abrasion or s/s of fx or joints dislocation observed. VSS, BP 151/69. Charge nurse Emily Boston immediately informed and assessed pt with primary RN. Kyle alarm set up, pt educated and reinforced to use call light whenever need OOB, pt agrees, call light within reach, nonskid socks on.
[2017-04-30] VITALS (12 sets, daily range): BP systolic 135–173; BP diastolic 79–84; PULSE 84–95; RESP 18–24; O2SAT 87–94
[2017-04-30] MEDS: 0.9% Sodium Chloride 1,000 ML IV SCH ×3 (00:15→17:39)
[2017-04-30] MEDS: Albuterol 1.25 mg/3 mL Inhalation Solution NEB PRN ×2 (01:34→09:51)
[2017-04-30] MEDS ORDERED: Vancomycin Serum Trough XX ONE (05:00)
[2017-04-30 05:50] LABS: BASOPHILS % (AUTO) 0.1 % (0-3); EOSINOPHILS % (AUTO) 0 % (0-5); MONOCYTES % (AUTO) 2.3 % (4-12); Mean Corpuscular Hemoglobin 24.5 pg (27.0-35.0); Mean Corpuscular Volume 85.8 fL (81-100); NEUTROPHILS % (AUTO) 92.7 % (40-74); Platelet Count 454 bil/L (150-400)
[2017-04-30] MEDS: Albuterol-Ipratropium 3 mL Inhalation Solution NEB SCH ×4 (06:19→20:30)
[2017-04-30] MEDS: Vancomycin Inj 1,000 MG in IV Premix 1 EACH IV SCH ×2 (06:46→19:39)
--- NOTE | 2017-04-30 07:04 | NUR ---
SOB Mild SOB at rest,SPO2 around low 87-93% on O2 4l (Home O2 2-4L), SOB significantly increased and desat to Mid 80s when OOB to BSC,SPO2 back to 90 after resting about 2min. Titrate O2 to 6l with activities,O2 4l at rest. NEB administered by RT, ADULT PSYCHIATRIST monitoring. Crackles at bilaterally LLs, no wheezes. Intermittent non productive cough.
[2017-04-30] MEDS: Vancomycin Dose per Pharmacist XX SCH (08:30)
--- NOTE | 2017-04-30 08:53 | PCM.PNMED ---
Subjective Date of Service Apr 30, 2017 Subjective Patient seen and examined. Still short of breath, wheezing. Vitals noted Exam Vital Signs Vital Sign - Last Date Time Temp Pulse Resp B/P Pulse Ox O2 Delivery O2 Flow Rate FiO2 04/30/17 06:19 95 22 94 Nasal Cannula 4.00 04/30/17 05:20 36.2 173/84 Intake and Output 04/29/17 04/29/17 04/30/17 Cumulative From/Thru 15:00 23:00 07:00 04/28/17 12:39 - 04/30/17 06:07 Intake Total 220 ml 820 ml 2454 ml 5953 ml Output Total 350 ml 200 ml 1960 ml 2510 ml Balance -130 ml 620 ml 494 ml 3443 ml Intake Oral 220 ml 820 ml 300 ml 1340 ml IV Total 2154 ml 4613 ml Output Urine Total 350 ml 200 ml 1960 ml 2510 ml # Bowel Movements 0 0 0 Exam General: Pleasant age-appropriate female in moderate respiratory distress Lymph: No lymphadenopathy Cardio: Regular rate and rhythm Respiratory: bilaterally with coarse breath sounds and wheezing; desaturating during conversation and breathing through her mouth with nasal cannula in place Abdomen: Soft, positive bowel sounds, nontender, nondistended Psych: Appropriate mood and affect Neuro: CN II through XII grossly intact, sensation intact throughout Lab and Diagnostics Result Diagram: 04/30/17 0530 04/30/17 0530 X-Rays, CTs and MRIs Chest x-ray 04/28/17 1. Suspect bilateral lower lobe pneumonia and superimposed atelectasis. 2. Increased pulmonary scarring suggests a degree of mild pulmonary edema Dictated by: Jose Vázquez M.D. on 04/28/2017 at 12:23 Chest x-ray on discharge 03/31/17 IMPRESSION: Bibasilar atelectasis versus aspiration or pneumonia slightly decreased involving the right lung base. Correlate clinically. Dictated by: Rian Paulino RRBalaji Interpreted: Tanya George MD on 03/31/2017 at 10: [address] on last visit 03/29/17 1. Densities in the right middle and lower lobes, as well as left lower lobe, are most likely atelectasis. 2. Indeterminate subcentimeter nodules bilaterally. Recommend followup CT (see enclosed recommendation). Dictated by: Jose Vázquez M.D. on 03/29/2017 at 13:41 Cardiac Echo Impressions Left ventricular wall thickness is mildly increased. Left ventricular systolic function is normal without focal wall motion abnormalities. The ejection fraction is estimated to be 60-65%. Diastolic function could not be accurately assessed due to contradictory data. The right ventricle is moderately dilated. Right ventricular systolic function is moderately reduced. The right ventricular systolic pressure is estimated at 33 mmHg assuming a right atrial pressure of 15 mm Hg. Borderline left atrial enlargement. The right atrium is severely dilated. There is mild to moderate mitral regurgitation. There is no other significant valvular heart disease. The aortic root is normal size. Assessment & Plan 77-year-old female with recent admissions for COPD exacerbation and lower lobe consolidations presents to emergency department with shortness of breath, Acute on chronic hypoxic and hypercapnic respiratory failure; present admission ; ongoing -O2 nasal cannula with goal 88-92 -Treat underlying problem -Improving, likely 2/2 copd exacerbation worsened by allergies COPD exacerbation; present on admission; ongoing -Presents with recent admission for COPD exacerbation and persistent basilar consolidations -Increased sputum production, shortness of breath, cough, wheezing on exam -DuoNeb every 4 while awake -Methylprednisolone 40 mg IV Q8H -Antibiotics as below -procalcitonin mildly elevated , will trend -Sputum culture - normal karlos -Respiratory PCR - negative -will consider pulm consult - patient may need nocturnal and daytime volume ventilation. BIPAP insufficiency is predicted based on severity of her COPD. Will do ABG to assess. Hospital-acquired Pneumonia versus pulmonary nodules -CXR/CT in early March showed same densities in the lower lobes is unclear whether this was pneumonia or atelectasis, with some improvement noted prior to discharge -Previously diagnosed with parainfluenza; MRSA screen was negative -Patient was treated with ceftriaxone, levofloxacin, and azithromycin -Procalcitonin -Vancomycin, cefepime, and levofloxacin -Blood cultures negative - sputum cultures with normal karlos -Strep and legionella - negative -MRSA screen - negative -The consolidations have not drastically improved over the last 4 weeks - Repeat CT today Elevated troponin; present on admission; ongoing -No reported chest pain and very mild elevation of troponin; possibly due to increased cardiac demand -BNP is elevated; EKG sinus rhythm with no ST changes -Trops trended down to negative . -Echo noted : EF normal Type II diabetes; present on admission; ongoing -Last A1c was 9.1 -Home medication: Metformin 1000 mg twice a day, Lantus 140 units subcutaneous daily, and NovoLog 5-20 units subcutaneous 3 times a day before meals -Hold metformin -Lantus 50 bid -High-dose correctional with preprandial 5 units -Hold Victoza Acute normocytic hypochromic anemia and thrombocytosis; present on admission; ongoing -Patient discharged with a hemoglobin of 12.4 at the beginning of last month; currently ~ 9 - hard to say if its from bleed vs anemia of chronic disease as TIBC low, will get ferritin levels -Increased RDW shows adequate bone marrow response -Hemoccult pending - TIBC noted to be low, will get ferritin levels -Iron and B12/folate studies - normal Hypertension; present on admission; ongoing -Continue amlodipine Hypomagnesemia -replace with 2mg Hypoalbuminemia-mailroom courier consult; replace below 2.0 Hyperlipidemia-hold statin for the moment Anxiety/depression-continue bupropion Disposition: Patient is being admitted to inpatient status with expected length of stay greater than two midnights due to severity of presentation, duration of treatment, and risks of adverse events disposition Full code VTE Prophylaxis: Sub-Q Heparin (Unfractionated) VTE Mechanical Devices: Intermittant Pneumatic CD Resuscitation Status: CPR: Attempt Resuscitation Time spent 35 mins Bogdan Elmore MD Apr 30, 2017 08:53
[2017-04-30] MEDS: Insulin GLARgine 100 Unit/mL Syringe SUBQ SCH ×2 (08:56→19:49)
[2017-04-30] MEDS: levoFLOXacin Inj 750 MG in IV Premix 1 EACH IV SCH (08:56)
[2017-04-30] MEDS: Insulin LISPRO 300 Unit/3 mL Inj SUBQ SCH ×4 (08:57→19:49)
[2017-04-30] MEDS: buPROPion SR 100 mg ER12 Tablet PO SCH ×2 (08:58→19:40)
[2017-04-30] MEDS: Heparin 5,000 Unit/mL Inj SUBQ SCH ×2 (08:59→17:39)
[2017-04-30] MEDS: MethylprednisoLONE Sodium Succinate 40 mg/mL Inj IVPUSH SCH ×2 (08:59→17:40)
[2017-04-30] MEDS: Cefepime Inj 2,000 MG in Dextrose 5% Minibag Plus 100 ML IV SCH ×2 (09:23→21:48)
--- NOTE | 2017-04-30 15:32 | DRSVH ---
PROCEDURE: CT CHEST WITHOUT CONTRAST ([id number]) INDICATIONS: SOB, no improvement in CXR TECHNIQUE: Noncontrast 5 mm thick sections acquired from the pulmonary apices to the posterior costophrenic angl es. 7 mm thick coronal and sagittal MIP reformats were then acquired. For radiation dose reduction, the following was used: automated exposure control, adjustment of mA and/or kV according to patient size. COMPARISON: [facility], CR, XR CHEST 1VW (PORTABLE), 04/28/2017, 12:53. [facility], CT, CT CHEST W CON, 03/29/2017, 13:36. FINDINGS: Image quality: Good Lungs and pleura: CT compared to images from one month ago now show bilateral patchy areas of densit y representing inflammatory foci. There has been significant improvement but incomplete resolution of infiltrate in the right middle lobe seen previously.. No pleural effusions or pneumothorax. Centra l and peripheral airways are patent and normal in caliber. Mediastinum: Heart size is normal. Aortic valve has been placed prior to the original CT.. No perica rdial effusion. No mediastinal adenopathy by size criteria. Lymph nodes in the mediastinum however a re more prominent in size and consistent with inflammatory reaction. Thoracic aorta and central pulmo nary arteries are normal in size. Esophagus is normal in caliber. No hiatal hernia. Bones and chest wall: No suspicious bony lesions. No vertebral body compression fractures. No axil amy or supraclavicular adenopathy by size criteria. Thyroid gland is within normal limits. Abdomen: Visualized upper abdominal solid organs and bowel loops appear normal in the absence of con trast. IMPRESSION: Bilateral patchy areas of infiltrate have occurred and others as in the right middle lobe have changed since the CT of 03/29/17. The appearance is consistent with infective disorder. Dictated by: Jorge A Riggins M.D. on 04/30/2017 at 15:21 Approved by: Jorge A Riggins M.D. on 04/30/2017 at 15:29
[2017-05-01] VITALS (9 sets, daily range): BP systolic 115–170; BP diastolic 55–84; PULSE 74–96; RESP 18–24; O2SAT 89–95
[2017-05-01] MEDS: Albuterol 1.25 mg/3 mL Inhalation Solution NEB PRN ×2 (00:19→03:28)
[2017-05-01] MEDS: Heparin 5,000 Unit/mL Inj SUBQ SCH ×3 (00:21→17:35)
[2017-05-01] MEDS: MethylprednisoLONE Sodium Succinate 40 mg/mL Inj IVPUSH SCH ×3 (00:22→11:05)
--- NOTE | 2017-05-01 03:43 | ABG ---
DateTimeAnalyzed 03:35:36 -_ pH ____7.422 - 7.350 7.450 pCO2 ___59.1__ -mmHg 35.0 45.0 pO2 ___50.7__ -mmHg 69.0 116 HCO3- ___38.5__ -mmol/L 22.0 26.0 ABE ___12.8__ -mmol/L tHb ____9.7__ -g/dL O2Hb ___80.7__ -% COHb ____0.2__ -% 1.5 MetHb ____0.0__ -% sO2 ___80.8__ -% FIO2 ___21.0__ -% Drawn By MD - Date/Time Notified____ 03:43:00 -_ Liter_Flow ____6.00_ -L/min Oxygen Device 1 __CANNULA - Notified By MD - Notified Whom RN R.ERIKA - K+ ____4.6__ -mmol/L tO2 ___11.0__ -Vol% Nicolas test _Positive -
--- NOTE | 2017-05-01 04:51 | NUR ---
ABG result/Respiratory Day MD ordered ABG's yesterday, completed by RT at 0345. pH 7.42. pO2 50.7 (critical value). Night paged, returned phone call, no new orders. Patient is on 4-6L nasal cannula, will not wear oxymask after multiple offers. Oxygen saturations between 85-95%, depending on activity or being in a deep sleep. Patient remains alert and oriented, has been awake intermittently through the night and conversing appropriately. Receiving nebulizer treatments about Q3 hours, per her request. Patient reports that her breathing is getting easier compared to when she was admitted. Able to speak in full sentences, walking into bathroom with SBA. Does get short of breath after ambulating. Bed alarm on, close monitoring in place.
[2017-05-01] MEDS: Vancomycin Inj 1,000 MG in IV Premix 1 EACH IV SCH (06:00)
[2017-05-01] MEDS: 0.9% Sodium Chloride 1,000 ML IV SCH ×2 (06:00→13:39)
[2017-05-01 07:43] LABS: Mean Corpuscular Hemoglobin 24.7 pg (27.0-35.0); NEUTROPHILS % (AUTO) 90.1 % (40-74); Platelet Count 488 bil/L (150-400)
[2017-05-01 07:44] LABS: BASOPHILS % (AUTO) 0.1 % (0-3); EOSINOPHILS % (AUTO) 0 % (0-5); MONOCYTES % (AUTO) 3.6 % (4-12)
[2017-05-01] MEDS: Albuterol-Ipratropium 3 mL Inhalation Solution NEB SCH ×4 (08:03→19:30)
--- NOTE | 2017-05-01 08:03 | DRSVH ---
PROCEDURE: X-RAY CHEST ONE VIEW ([id number]) INDICATIONS: Follow up TECHNIQUE: One view of the chest was acquired. COMPARISON: [facility], CR, XR CHEST 1VW (PORTABLE), 04/28/2017, 12:53. [facility], CR, XR CHEST 1VW (PORTABLE), 03/31/2017, 6:15. FINDINGS: Surgical changes and devices: Valve prosthesis appears centered over the mid heart. Lungs and pleura: No pleural effusions or pneumothorax. Lungs are edematous with possible pneumonia at each lung base greater on the right than the left. Mediastinum: Mediastinal contours appear normal. Heart size is normal. Bones and chest wall: No suspicious bony lesions. Overlying soft tissues appear unremarkable. IMPRESSION: Pulmonary edema pattern, with possible bibasilar superimposed pneumonia. Cardiac valve p rosthesis overlies the mid heart. Dictated by: Kam Maciel M.D. on 05/01/2017 at 7:59 Approved by: Kam Maciel M.D. on 05/01/2017 at 8:00
[2017-05-01] MEDS: buPROPion SR 100 mg ER12 Tablet PO SCH ×2 (08:09→21:14)
[2017-05-01] MEDS: Vancomycin Dose per Pharmacist XX SCH (08:10)
[2017-05-01] MEDS: levoFLOXacin Inj 750 MG in IV Premix 1 EACH IV SCH ×2 (08:19→11:06)
[2017-05-01] MEDS: Insulin LISPRO 300 Unit/3 mL Inj SUBQ SCH ×4 (08:20→21:25)
[2017-05-01] MEDS: Insulin GLARgine 100 Unit/mL Syringe SUBQ SCH ×2 (08:20→21:24)
[2017-05-01] MEDS: Cefepime Inj 2,000 MG in Dextrose 5% Minibag Plus 100 ML IV SCH ×2 (12:18→21:14)
--- NOTE | 2017-05-01 14:26 | CONS ---
[address] [address] CONSULTATION REPORT PATIENT: ROYAL SILVA : 1940 MR#: [id number] ADMIT: 04/28/2017 JOB ID: [id number] INFECTIOUS DISEASE CONSULTATION: DATE OF SERVICE: 05/01/2017 REQUESTING PHYSICIAN: Bogdan Elmore MD I thank Dr. Elmore for this timely consult. REASON FOR CONSULTATION: COPD in patient with bilateral nodular pulmonary infiltrates. HISTORY OF THE PRESENT ILLNESS: The patient is a 77-year-old woman who was admitted to this facility on April 28 with progressive shortness of breath and a largely nonproductive cough. This was associated with fatigue, malaise, myalgias and just generalized weakness. It is notable that she was admitted to this facility during the first week of March for a similar COPD exacerbation and at that time was found to have parainfluenza virus infection. Also during that admission, a CT scan of the chest showed some unusual looking nodular infiltrates. She received an appropriate course of antibiotics and was discharged in early March. She reports she did well for about three weeks and then on or about April 26 started to develop increasing cough with minimal sputum production and shortness of breath as described above. There was no associated fevers, chills, sweats, nausea, vomiting, diarrhea, or dysuria. PAST MEDICAL HISTORY: 1. COPD which is quite severe and requires home O2. 2. Type 2 diabetes. 3. Status post aortic valve replacement a couple of years ago for stenosis. That surgery was done by the noninvasive TAVR procedure at [facility]. The patient is on and off prednisone and tells me she was not on prednisone at the time of her readmission here on April 28. SOCIAL HISTORY: The patient is a cigarette smoker; quit about 10 years ago. She is not an alcohol drinker. Never uses illicit drugs. Lives with her family. Her last trip out of the [place] was 5 or 6 years ago when she went to [place]. She has not been to the [place] or overseas. FAMILY HISTORY: Negative for TB in first and second-degree relatives. REVIEW OF SYSTEMS: Patient has no significant headache and no visual complaints at this time. No intraoral complaints. No trouble swallowing. No chest pain. No palpitations. No nausea, vomiting, or diarrhea. No dysuria, urgency, or frequency. No swelling of her joints. Remainder of the review of systems negative. PHYSICAL EXAMINATION: Reveals a somewhat obese woman appearing about her stated age of 77. She is in mild to moderate respiratory distress. She has been afebrile since readmission three days ago. Her current temp 36.9, pulse 93, respiratory rate 22, blood pressure 165/77. She is saturating well on 2 L of nasal oxygen. She is alert and oriented and able to give a good history. Sinuses nontender. Eyes without conjunctivitis. Oral cavity: No thrush or hairy leukoplakia. Teeth in good repair. Neck is supple. No adenopathy or JVD. Lungs are notable for bilateral wheezing and diminished air flow. Cardiac tones: Regular rate and rhythm. II/ murmur is noted, heard best in the aortic region. The abdomen is slightly obese, soft, and nontender without organomegaly. There is no rash. No evidence of synovitis. She does have Heberden's nodes on her hands consistent with osteoarthritis but no changes consistent with rheumatoid arthritis. There is no significant edema of the lower extremities. Neurologically she is intact. LABORATORY DATA: Labs include white count of 15,000 when she came in, 88% segs, is now down to 12,000, 90% segs. Creatinine stable at 0.84. Procalcitonin x4 have been done and these are all less than or equal to 0.1. Urinalysis with 0-5 white cells. Urine Legionella and pneumococcal antigens are negative. MRSA screen negative. Respiratory viral PCR negative on this admission. Blood cultures negative. In going back to her prior studies during her last admission, her PCR was positive for parainfluenza virus III. All other cultures were negative on that admission. IMAGING: I carefully reviewed the CT scan of the chest. It shows bilateral patchy infiltrates. This may be a bit better than on a CT scan done a month ago but it is certainly not resolved. Her routine chest radiograph done today shows what is thought to be pulmonary edema with superimposed pulmonary infiltrates. IMPRESSION: This is an unfortunate woman with longstanding chronic obstructive pulmonary disease but it sounds like it has been much worse in the last year or two. This is her second admission to this facility in the past 4-5 weeks for chronic obstructive pulmonary disease exacerbation. During both these admissions, she has been found to have bilateral nodular type infiltrates and this is concerning for atypical pathogens. The absence of any usual pathogens in any of her cultures and the fact we have already had four procalcitonins less than 0.1, almost excludes the possibility of any typical bacterial pneumonia and I think we can dispense with most of her routine antibiotics at this time. My concerns regarding this chronic inflammatory or infectious picture though are primarily with concern but fungal and mycobacterial processes. Also possible here might be Nocardia. RECOMMENDATIONS: 1. Will discontinue the vancomycin at this time. 2. Cryptococcal antigen will be obtained. 3. QuantiFERON will be obtained though I think TB is extraordinary unlikely here without any family history and with no travel really outside the [place], and no need to isolate. 4. Sputum AFB x3 will be obtained. These sputums are intended to look for the possibility of mycobacteria but not TB as I think it is very unlikely. More so looking for MAC or or some mycobacterium other than tuberculosis. 5. Aspergillus antigen and antibodies will be obtained. 6. I think it would be reasonable for this patient to be seen by Pulmonary with an eye towards bronchoscopy. Many of these atypical pathogens including mycobacteria, fungi, Nocardia, and related organisms are best identified through a bronchoscopy and I wonder if that would be indicated in this patient given her bilateral infiltrates which have failed to improve with broad-spectrum antibiotics and which are certainly not typical bacterial pathogens.
--- NOTE | 2017-05-01 15:58 | PCM.PNMED ---
Subjective Date of Service May 01, 2017 Subjective Overall SOB and pulmonary symptoms are better since admission. Reviewed chart and Dr. Kelly's notes. No new problems noted sinceyesterdy. Exam Vital Signs Vital Sign - Last Date Time Temp Pulse Resp B/P Pulse Ox O2 Delivery O2 Flow Rate FiO2 05/01/17 14:30 37.1 77 18 150/68 92 Nasal Cannula 3.00 Intake and Output 04/30/17 04/30/17 05/01/17 Cumulative From/Thru 14:59 22:59 06:59 04/28/17 12:39 - 05/01/17 06:18 Intake Total 390 ml 858 ml 867 ml 8068 ml Output Total 200 ml 2710 ml Balance 390 ml 658 ml 867 ml 5358 ml Intake Oral 687 ml 2027 ml IV Total 390 ml 171 ml 867 ml 6041 ml Output Urine Total 200 ml 2710 ml # Bowel Movements 0 0 Exam Skin; warm dry no rash HENT; nomal hydration no lesions CV; regular no gallop Resp; scattered crackles, no wheezing pretty good air movement. GI; soft non acute and benign Lab and Diagnostics Result Diagram: 05/01/17 0650 05/01/17 0650 X-Rays, CTs and MRIs Chest x-ray 04/28/17 1. Suspect bilateral lower lobe pneumonia and superimposed atelectasis. 2. Increased pulmonary scarring suggests a degree of mild pulmonary edema Dictated by: Jose Vázquez M.D. on 04/28/2017 at 12:23 Chest x-ray on discharge 03/31/17 IMPRESSION: Bibasilar atelectasis versus aspiration or pneumonia slightly decreased involving the right lung base. Correlate clinically. Dictated by: Rian Paulino RRA Interpreted: Tanya George MD on 03/31/2017 at 10: [address] on last visit 03/29/17 1. Densities in the right middle and lower lobes, as well as left lower lobe, are most likely atelectasis. 2. Indeterminate subcentimeter nodules bilaterally. Recommend followup CT (see enclosed recommendation). Dictated by: Jose Vázquez M.D. on 03/29/2017 at 13:41 Cardiac Echo Impressions Left ventricular wall thickness is mildly increased. Left ventricular systolic function is normal without focal wall motion abnormalities. The ejection fraction is estimated to be 60-65%. Diastolic function could not be accurately assessed due to contradictory data. The right ventricle is moderately dilated. Right ventricular systolic function is moderately reduced. The right ventricular systolic pressure is estimated at 33 mmHg assuming a right atrial pressure of 15 mm Hg. Borderline left atrial enlargement. The right atrium is severely dilated. There is mild to moderate mitral regurgitation. There is no other significant valvular heart disease. The aortic root is normal size. Assessment & Plan 77-year-old female with recent admissions for COPD exacerbation and lower lobe consolidations presents to emergency department with shortness of breath, Acute on chronic hypoxic and hypercapnic respiratory failure; present admission ; ongoing -O2 nasal cannula with goal 88-92 -Treat underlying problem COPD exacerbation; present on admission; ongoing -Presents with recent admission for COPD exacerbation and persistent basilar consolidations -Increased sputum production, shortness of breath, cough, wheezing on exam -DuoNeb every 4 while awake -change medrol to prednisone 40 daily -procalcitonin mildly elevated , will trend -Sputum culture - normal karlos -Respiratory PCR - negative Possible Hospital-acquired Pneumonia, poa, active -CXR/CT in early March showed same densities in the lower lobes is unclear whether this was pneumonia or atelectasis, with some improvement noted prior to discharge -Previously diagnosed with parainfluenza; MRSA screen was negative -Patient was treated with ceftriaxone, levofloxacin, and azithromycin -repeat chest CT now shows persistent patchy pul infiltrates but in different location nd distribution making it seem more acute -Vancomycin, cefepime, and levofloxacin started on admit -d/c vanco today continue with other antibiotics Persistent bilateral pulmonary infiltrates, poa, active -consider unusual organism -consider bronchoscope -sent cyptococcal antigen, Quantiferon gold, sputum for AFB times 3, aspergillus antigen and antibody. -out patient follow up with fire systems inspector Elevated troponin of unknow significance; present on admission; resolved -No reported chest pain and very mild elevation of troponin; possibly due to increased cardiac demand -BNP is elevated; EKG sinus rhythm with no ST changes -Trops trended down to negative . -Echo noted : EF normal Type II diabetes; present on admission; ongoing -Last A1c was 9.1 -Home medication: Metformin 1000 mg twice a day, Lantus 140 units subcutaneous daily, and NovoLog 5-20 units subcutaneous 3 times a day before meals -Hold metformin -Lantus 50 bid -High-dose correctional with preprandial 5 units -Hold Victoza Acute normocytic hypochromic anemia and thrombocytosis; present on admission; ongoing -Patient discharged with a hemoglobin of 12.4 at the beginning of last month; currently ~ 9 - hard to say if its from bleed vs anemia of chronic disease as TIBC low, will get ferritin levels -Increased RDW shows adequate bone marrow response -Hemoccult pending - TIBC noted to be low, will get ferritin levels -Iron and B12/folate studies - normal Hypertension; present on admission; ongoing -Continue amlodipine Hypomagnesemia -replace with 2mg Hypoalbuminemia-industrial roofer consult; replace below 2.0 Hyperlipidemia-hold statin for the moment Anxiety/depression-continue bupropion Disposition: Patient is being admitted to inpatient status with expected length of stay greater than two midnights due to severity of presentation, duration of treatment, and risks of adverse events disposition Full code PCP is Dr Montesinos, [facility] Equipment [facility]er at [facility], Dr. Pushpa Rodríguez Uses home O2 VTE Prophylaxis: Sub-Q Heparin (Unfractionated) VTE Mechanical Devices: Intermittant Pneumatic CD Resuscitation Status: CPR: Attempt Resuscitation Funmilayo Christianson MD May 01, 2017 15:58
[2017-05-01] MEDS ORDERED: Vancomycin Serum Trough XX ONE (18:00)
--- NOTE | 2017-05-01 19:02 | NUR ---
Respiratory Reporting improvement overall. Fluids d/cd, using BSC IND. Nebs and steroids continue. Oxygen reduced to 3L NC with SOLICITING FREIGHT AGENT in place and goal sats in low 90s. Making needs known using call light with frequent rounding in place.
[2017-05-02] VITALS (9 sets, daily range): BP systolic 151–162; BP diastolic 61–79; PULSE 66–95; RESP 20–25; O2SAT 89–95
[2017-05-02] MEDS: Heparin 5,000 Unit/mL Inj SUBQ SCH ×3 (00:08→16:56)
[2017-05-02] MEDS: Albuterol 1.25 mg/3 mL Inhalation Solution NEB PRN ×2 (00:17→04:03)
--- NOTE | 2017-05-02 03:17 | NUR ---
NOC shift note Patient has slept intermittently, more than last night. Reports improved breathing, able to speak full sentences at rest, but gets short of breath with activity. Oxygen increased to 5L for brief dips to high 70's while on 3L and sleeping. Maintaining 87-92% on 5L. Container for sputum sample at bedside, patient reports that cough is non-productive. Denies pain, remains alert and oriented. Blood glucose levels were 274 and 167. Intentional rounding in place.
--- NOTE | 2017-05-02 07:26 | NUR ---
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 Patient was shaky, diaphoretic, slight right-sided facial droop and slurred speech. Result 41 at 0645. Administered juice, crackers and peanut butter, started bolus of D10 IV fluid. Glucose at 0655 was 55. Rechecked glucose at 0710, it was 136. Patient's symptoms have resolved, but she reported that she is very tired. Patient reported this has happened at home as well, the lowest she has ever been was 36. Day RN to meet patient, aware of glucose levels. Patient is now resting in bed.
--- NOTE | 2017-05-02 07:57 | PCM.PNMED ---
Subjective Date of Service May 02, 2017 Subjective Breathing continues to improve, still with some wheezing however, minimal non productive cough. Did have a low blood sugar this AM. Exam Vital Signs Vital Sign - Last Date Time Temp Pulse Resp B/P Pulse Ox O2 Delivery O2 Flow Rate FiO2 05/02/17 05:20 36.8 66 22 162/70 89 Nasal Cannula 3.00 Intake and Output 05/01/17 05/01/17 05/02/17 Cumulative From/Thru 15:00 23:00 07:00 04/28/17 12:39 - 05/02/17 05:54 Intake Total 100 ml 1444 ml 176 ml 9788 ml Output Total 600 ml 1300 ml 4610 ml Balance -500 ml 144 ml 176 ml 5178 ml Intake Oral 100 ml 963 ml 3090 ml IV Total 481 ml 176 ml 6698 ml Output Urine Total 600 ml 1300 ml 4610 ml # Voids 6 6 # Bowel Movements 0 Exam Skin; war and dry, no rash HENT; well hydrated no lesions CV; regular no murmur Resp; scattered expiratory wheezing, moderated air movement, no rhonchi GI; soft non acute benign Lab and Diagnostics Result Diagram: 05/01/17 0650 05/01/17 0650 X-Rays, CTs and MRIs Chest x-ray 04/28/17 1. Suspect bilateral lower lobe pneumonia and superimposed atelectasis. 2. Increased pulmonary scarring suggests a degree of mild pulmonary edema Dictated by: Jose Vázquez M.D. on 04/28/2017 at 12:23 Chest x-ray on discharge 03/31/17 IMPRESSION: Bibasilar atelectasis versus aspiration or pneumonia slightly decreased involving the right lung base. Correlate clinically. Dictated by: Rian Paulino [facility] Interpreted: Tanya George MD on 03/31/2017 at 10: [address] on last visit 03/29/17 1. Densities in the right middle and lower lobes, as well as left lower lobe, are most likely atelectasis. 2. Indeterminate subcentimeter nodules bilaterally. Recommend followup CT (see enclosed recommendation). Dictated by: Jose Vázquez M.D. on 03/29/2017 at 13:41 Cardiac Echo Impressions Left ventricular wall thickness is mildly increased. Left ventricular systolic function is normal without focal wall motion abnormalities. The ejection fraction is estimated to be 60-65%. Diastolic function could not be accurately assessed due to contradictory data. The right ventricle is moderately dilated. Right ventricular systolic function is moderately reduced. The right ventricular systolic pressure is estimated at 33 mmHg assuming a right atrial pressure of 15 mm Hg. Borderline left atrial enlargement. The right atrium is severely dilated. There is mild to moderate mitral regurgitation. There is no other significant valvular heart disease. The aortic root is normal size. Assessment & Plan 77-year-old female with recent admissions for COPD exacerbation and lower lobe consolidations presents to emergency department with shortness of breath, Acute on chronic hypoxic and hypercapnic respiratory failure; present admission ; ongoing -O2 nasal cannula with goal 88-92 -Treat underlying problem COPD exacerbation; present on admission; ongoing -Presents with recent admission for COPD exacerbation and persistent basilar consolidations -Increased sputum production, shortness of breath, cough, wheezing on exam -DuoNeb every 4 while awake -reduce prednsone to 30 daily -procalcitonin mildly elevated -Sputum culture - normal karlos -Respiratory PCR - negative Possible Hospital-acquired Pneumonia, poa, active -CXR/CT in early March showed same densities in the lower lobes is unclear whether this was pneumonia or atelectasis, with some improvement noted prior to discharge -Previously diagnosed with parainfluenza; MRSA screen was negative -Patient was treated with ceftriaxone, levofloxacin, and azithromycin -repeat chest CT now shows persistent patchy pul infiltrates but in different location and distribution making it seem more acute -Vancomycin, cefepime, and levofloxacin started on admit (04-28-17) -vancodiscontinued on 05-01-17 Persistent bilateral pulmonary infiltrates, poa, active -consider unusual organism -consider bronchoscope -sent cyptococcal antigen, Quantiferon gold, sputum for AFB times 3, aspergillus antigen and antibody, galatomannon ab, -out patient follow up with 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 -Echo noted : EF normal Type II diabetes; present on admission; ongoing -Last A1c was 9.1 -Home medication: Metformin 1000 mg twice a day, Toujeo 140 units subcutaneous pm, and NovoLog 0-20 units subcutaneous 3 times a day before meals as Correction -Hold metformin -Reduce Lantus 45 bid -correctional insulin; 0-20 units AC tid patient to pick dose -Hold Victoza Acute normocytic hypochromic anemia and thrombocytosis; present on admission; ongoing -Patient discharged with a hemoglobin of 12.4 at the beginning of last month; currently ~ 9 - hard to say if its from bleed vs anemia of chronic disease as TIBC low, will get ferritin levels -Increased RDW shows adequate bone marrow response -Hemoccult pending - TIBC noted to be low, will get ferritin levels -Iron and B12/folate studies - normal Hypertension; present on admission; ongoing -Continue amlodipine Hypomagnesemia -replace with 2mg Hypoalbuminemia-connection worker consult; replace below 2.0 Hyperlipidemia-hold statin for the moment Anxiety/depression-continue bupropion Disposition: Patient is being admitted to inpatient status with expected length of stay greater than two midnights due to severity of presentation, duration of treatment, and risks of adverse events disposition Full code PCP is Dr Montesinos, [employer] at [facility], Dr. Pushpa Rodríguez Uses home O2 VTE Prophylaxis: Sub-Q Heparin (Unfractionated) VTE Mechanical Devices: Intermittant Pneumatic CD Resuscitation Status: CPR: Attempt Resuscitation Funmilayo Christianson MD May 02, 2017 07:57
[2017-05-02] MEDS ORDERED: predniSONE 20 mg Tablet PO SCH (08:30)
[2017-05-02] MEDS: levoFLOXacin Inj 750 MG in IV Premix 1 EACH IV SCH (08:54)
[2017-05-02] MEDS: buPROPion SR 100 mg ER12 Tablet PO SCH ×2 (08:55→20:43)
[2017-05-02] MEDS: predniSONE 20 mg Tablet PO SCH (08:55)
[2017-05-02] MEDS: Insulin GLARgine 100 Unit/mL Syringe SUBQ SCH ×2 (08:56→20:44)
[2017-05-02] MEDS: Albuterol-Ipratropium 3 mL Inhalation Solution NEB SCH ×4 (10:51→20:27)
[2017-05-02] MEDS: Cefepime Inj 2,000 MG in Dextrose 5% Minibag Plus 100 ML IV SCH ×2 (11:33→20:43)
[2017-05-02 13:10] LABS: Cryptococcal Ag Negative (Negative)
[2017-05-02] MEDS: Insulin LISPRO 300 Unit/3 mL Inj SUBQ PRN ×2 (16:54→20:44)
--- NOTE | 2017-05-02 17:17 | NUR ---
Social Work- Readiness for D/C Data: EMR reviewed. Pt discussed in multidisciplinary rounds. Pt is on day 4 of hospitalization. Pt is not medically ready, anticipate tomorrow. Pt uses a cane at baseline. Pt anticipated to d/c home with to transport via POV. No d/c needs. SW met with pt at bedside and confirmed d/c plan. SW will continue to follow. Assessment: Pt who is independent at baseline. Plan:Pt anticipated to d/c home with to transport via POV. No d/c needs. SW will continue to follow. Cristina Yanez MSW
--- NOTE | 2017-05-02 17:17 | NUR ---
YAIMA signed. Cristina Yanez GROUP ACCOUNT DIRECTOR
[2017-05-03] MEDS: Albuterol 1.25 mg/3 mL Inhalation Solution NEB PRN ×2 (00:30→04:45)
[2017-05-03 00:31] VITALS: PULSE 81; O2SAT 91
[2017-05-03] MEDS: Heparin 5,000 Unit/mL Inj SUBQ SCH ×2 (01:06→08:24)
--- NOTE | 2017-05-03 03:39 | NUR ---
Respiratory/BG Pt remains to be extremely SOB with exertion and slightly SOB at rest in bed. desated with exertion; SPO2 in mid 90s on 4L O2. BG @HS was 281. Lantus 45units given as ordered; 10 units of Lispro given per pt's dosing/request. Repeat BG was 147. [place] to [facility] [place] steady. Addendum: 05/03/17 at 0500 by LENA BUI RN BG Pt woke up hungry around 4AM. BG was 65. Pt refused OJ because it gives her heartburn. given some toast with peanut butter per pt's request. BG went up to 79. Pt eating vanilla pudding at this time. will monitor pt's BG levels.
[2017-05-03 04:15] VITALS: BP 176/63; PULSE 89; RESP 20; O2SAT 94
[2017-05-03 04:46] VITALS: PULSE 81; RESP 22; O2SAT 93
[2017-05-03 07:58] VITALS: PULSE 79; RESP 22; O2SAT 92
[2017-05-03] MEDS: Albuterol-Ipratropium 3 mL Inhalation Solution NEB SCH ×2 (07:58→12:49)
[2017-05-03] MEDS: levoFLOXacin Inj 750 MG in IV Premix 1 EACH IV SCH (08:20)
[2017-05-03] MEDS: predniSONE 20 mg Tablet PO SCH (08:20)
[2017-05-03] MEDS: buPROPion SR 100 mg ER12 Tablet PO SCH (08:24)
[2017-05-03] MEDS: Insulin LISPRO 300 Unit/3 mL Inj SUBQ PRN ×2 (08:25→11:45)
[2017-05-03] MEDS: Insulin GLARgine 100 Unit/mL Syringe SUBQ SCH (08:26)
[2017-05-03] MEDS: Cefepime Inj 2,000 MG in Dextrose 5% Minibag Plus 100 ML IV SCH (10:16)
--- NOTE | 2017-05-03 11:58 | PCM.DIMED ---
Discharge Instructions Date of Service May 03, 2017 Dates of Hospitalization Apr 28, 2017 at 15:13 Discharge Diagnosis Discharge Diagnosis Acute on chronic hypoxic and hypercapnic respiratory failure; present admission ; ongoing -O2 nasal cannula with goal 88-92 -Treat underlying problem COPD exacerbation; Possible Hospital-acquired Pneumonia, Persistent bilateral pulmonary infiltrates Need out patient follow up Type II diabetes; present on admission Acute normocytic hypochromic anemia and thrombocytosis Hypertension; Diet Discharge Diet: Heart Healthy, Diabetic Activity Discharge Activity: Limited until seen by PCP Call your provider Call your provider for: Shortness of breath Patient Instructions Follow-up plan Follow up with your ticket manager at [facility], Dr. Ruben Rodríguez,, May 12 Follow up with your primary care provider in one week Dr Montesinos. Funmilayo Christianson MD May 03, 2017 11:58
[2017-05-03] MEDS ORDERED: PRE20 PO (12:00)
--- NOTE | 2017-05-03 12:10 | PCM.DC.MED ---
Discharge Summary Date of Service May 03, 2017 Dates of Hospitalization Date of Hospital Admission Apr 28, 2017 at 15:13 Date of Discharge: May 03, 2017 Providers: Admitting Physician: Bogdan Elmore MD Primary Care Physician: Joshua Montesinos Attending Physician: Funmilayo Christianson MD Diagnosis at Time of Discharge Diagnosis at Time of Discharge Acute on chronic hypoxic and hypercapnic respiratory failure; present admission ; stable COPD exacerbation; present on admission; improving Possible Hospital-acquired Pneumonia, poa, resolved Persistent bilateral pulmonary infiltrates, poa, active Elevated troponin of unknow significance; present on admission; resolved Type II diabetes; present on admission; stable Acute normocytic hypochromic anemia and thrombocytosis; present on admission; stable Hypertension; present on admission; stable Consultations INFECTIOUS DISEASE CONSULTATION: DATE OF SERVICE: 05/01/2017 REQUESTING PHYSICIAN: Bogdan Elmore MD I thank Dr. Elmore for this timely consult. REASON FOR CONSULTATION: COPD in patient with bilateral nodular pulmonary infiltrates. HISTORY OF THE PRESENT ILLNESS: The patient is a 77-year-old woman who was admitted to this facility on April 28 with progressive shortness of breath and a largely nonproductive cough. This was associated with fatigue, malaise, myalgias and just generalized weakness. It is notable that she was admitted to this facility during the first week of March for a similar COPD exacerbation and at that time was found to have parainfluenza virus infection. Also during that admission, a CT scan of the chest showed some unusual looking nodular infiltrates. She received an appropriate course of antibiotics and was discharged in early March. She reports she did well for about three weeks and then on or about April 26 started to develop increasing cough with minimal sputum production and shortness of breath as described above. There was no associated fevers, chills, sweats, nausea, vomiting, diarrhea, or dysuria. PAST MEDICAL HISTORY: 1. COPD which is quite severe and requires home O2. 2. Type 2 diabetes. 3. Status post aortic valve replacement a couple of years ago for stenosis. That surgery was done by the noninvasive TAVR procedure at [facility]. The patient is on and off prednisone and tells me she was not on prednisone at the time of her readmission here on April 28. SOCIAL HISTORY: The patient is a cigarette smoker; quit about 10 years ago. She is not an alcohol drinker. Never uses illicit drugs. Lives with her family. Her last trip out of the [place] was 5 or 6 years ago when she went to [place]. She has not been to the [place] or overseas. FAMILY HISTORY: Negative for TB in first and second-degree relatives. REVIEW OF SYSTEMS: Patient has no significant headache and no visual complaints at this time. No intraoral complaints. No trouble swallowing. No chest pain. No palpitations. No nausea, vomiting, or diarrhea. No dysuria, urgency, or frequency. No swelling of her joints. Remainder of the review of systems negative. PHYSICAL EXAMINATION: Reveals a somewhat obese woman appearing about her stated age of 77. She is in mild to moderate respiratory distress. She has been afebrile since readmission three days ago. Her current temp 36.9, pulse 93, respiratory rate 22, blood pressure 165/77. She is saturating well on 2 L of nasal oxygen. She is alert and oriented and able to give a good history. Sinuses nontender. Eyes without conjunctivitis. Oral cavity: No thrush or hairy leukoplakia. Teeth in good repair. Neck is supple. No adenopathy or JVD. Lungs are notable for bilateral wheezing and diminished air flow. Cardiac tones: Regular rate and rhythm. II/ murmur is noted, heard best in the aortic region. The abdomen is slightly obese, soft, and nontender without organomegaly. There is no rash. No evidence of synovitis. She does have Heberden's nodes on her hands consistent with osteoarthritis but no changes consistent with rheumatoid arthritis. There is no significant edema of the lower extremities. Neurologically she is intact. LABORATORY DATA: Labs include white count of 15,000 when she came in, 88% segs, is now down to 12,000, 90% segs. Creatinine stable at 0.84. Procalcitonin x4 have been done and these are all less than or equal to 0.1. Urinalysis with 0-5 white cells. Urine Legionella and pneumococcal antigens are negative. MRSA screen negative. Respiratory viral PCR negative on this admission. Blood cultures negative. In going back to her prior studies during her last admission, her PCR was positive for parainfluenza virus III. All other cultures were negative on that admission. IMAGING: I carefully reviewed the CT scan of the chest. It shows bilateral patchy infiltrates. This may be a bit better than on a CT scan done a month ago but it is certainly not resolved. Her routine chest radiograph done today shows what is thought to be pulmonary edema with superimposed pulmonary infiltrates. IMPRESSION: This is an unfortunate woman with longstanding chronic obstructive pulmonary disease but it sounds like it has been much worse in the last year or two. This is her second admission to this facility in the past 4-5 weeks for chronic obstructive pulmonary disease exacerbation. During both these admissions, she has been found to have bilateral nodular type infiltrates and this is concerning for atypical pathogens. The absence of any usual pathogens in any of her cultures and the fact we have already had four procalcitonins less than 0.1, almost excludes the possibility of any typical bacterial pneumonia and I think we can dispense with most of her routine antibiotics at this time. My concerns regarding this chronic inflammatory or infectious picture though are primarily with concern but fungal and mycobacterial processes. Also possible here might be Nocardia. RECOMMENDATIONS: 1. Will discontinue the vancomycin at this time. 2. Cryptococcal antigen will be obtained. 3. QuantiFERON will be obtained though I think TB is extraordinary unlikely here without any family history and with no travel really outside the [place], and no need to isolate. 4. Sputum AFB x3 will be obtained. These sputums are intended to look for the possibility of mycobacteria but not TB as I think it is very unlikely. More so looking for MAC or or some mycobacterium other than tuberculosis. 5. Aspergillus antigen and antibodies will be obtained. 6. I think it would be reasonable for this patient to be seen by Pulmonary with an eye towards bronchoscopy. Many of these atypical pathogens including mycobacteria, fungi, Nocardia, and related organisms are best identified through a bronchoscopy and I wonder if that would be indicated in this patient given her bilateral infiltrates which have failed to improve with broad-spectrum antibiotics and which are certainly not typical bacterial pathogens. Romario Kelly MD 05/01/17 1311 Procedures XRay, CTs & MRIs Chest x-ray 04/28/17 1. Suspect bilateral lower lobe pneumonia and superimposed atelectasis. 2. Increased pulmonary scarring suggests a degree of mild pulmonary edema Dictated by: Jose Vázquez M.D. on 04/28/2017 at 12:23 Chest x-ray on discharge 03/31/17 IMPRESSION: Bibasilar atelectasis versus aspiration or pneumonia slightly decreased involving the right lung base. Correlate clinically. Dictated by: Rian Paulino [facility] Interpreted: Tanya George MD on 03/31/2017 at 10: [address] on last visit 03/29/17 1. Densities in the right middle and lower lobes, as well as left lower lobe, are most likely atelectasis. 2. Indeterminate subcentimeter nodules bilaterally. Recommend followup CT (see enclosed recommendation). Dictated by: Jose Vázquez M.D. on 03/29/2017 at 13:41 Cardiac Echo Impression Left ventricular wall thickness is mildly increased. Left ventricular systolic function is normal without focal wall motion abnormalities. The ejection fraction is estimated to be 60-65%. Diastolic function could not be accurately assessed due to contradictory data. The right ventricle is moderately dilated. Right ventricular systolic function is moderately reduced. The right ventricular systolic pressure is estimated at 33 mmHg assuming a right atrial pressure of 15 mm Hg. Borderline left atrial enlargement. The right atrium is severely dilated. There is mild to moderate mitral regurgitation. There is no other significant valvular heart disease. The aortic root is normal size. Brief History 77-year-old female history of type II diabetes and advanced COPD on Brovana, Spiriva, and azithromycin 3 times weekly, who is recently discharged on March 31 for COPD exacerbation, presents to emergency department with 2 days of increasing shortness of breath with cough and sputum production, myalgias, and increased fatigue. Patient denies ongoing fever, chills, chest pain, or new diarrhea. Patient states that yesterday she woke up feeling weak and lethargic and her sputum is changed from green to yellow to clear. She has had to increase her oxygen from 3 L to 5 L. She states that she has been using Brovana and and Spiriva as indicated, and her quality system manager down at [facility] recently started her on azithromycin which she says she is also compliant with. Patient's last admit she is positive for parainfluenza. Her chest x-ray also showed bibasilar consolidations. In emergency department the patient was started on antibiotics to cover HCAP, given 125 mg of Solu-Medrol and DuoNeb's. Chest x-ray again shows bibasilar consolidations and has been 4 weeks since her last chest x-ray. Blood work indicates a moderate leukocytosis with left shift, as well as new anemia, and glucose of 373. Hospital Course 77-year-old female with recent admissions for COPD exacerbation and lower lobe consolidations presents to emergency department with shortness of breath, Acute on chronic hypoxic and hypercapnic respiratory failure; present admission ; stable -O2 nasal cannula with goal 88-92 -continue home O2 COPD exacerbation; present on admission; -Presents with recent admission for COPD exacerbation and persistent basilar consolidations -Increased sputum production, shortness of breath, cough, wheezing on exam -DuoNeb every 4 while awake -reduce prednsone to 30 daily -procalcitonin mildly elevated -Sputum culture - normal karlos -Respiratory PCR - negative For Discharge will continue with prednisone 30 daily and patient's doctors can taper it after patient seen as out patient Possible Hospital-acquired Pneumonia, poa, active -CXR/CT in early March showed same densities in the lower lobes is unclear whether this was pneumonia or atelectasis, with some improvement noted prior to discharge -Previously diagnosed with parainfluenza; MRSA screen was negative -Patient was treated with ceftriaxone, levofloxacin, and azithromycin -repeat chest CT now shows persistent patchy pul infiltrates but in different location and distribution making it seem more acute -Vancomycin, cefepime, and levofloxacin started on admit (04-28-17) discontinued today (05-03-17) 6 day course -vancodiscontinued on 05-01-17 Persistent bilateral pulmonary infiltrates, poa, active -consider unusual organism -consider bronchoscope -sent cyptococcal antigen, Quantiferon gold, sputum for AFB times 3, aspergillus antigen and antibody, galatomannon ab, (cyptococcal negative, the rest of these tests are still pending at time of D?C, pcp to folow up on results please -For Discharge; see infectious disease consult included here, recommend to follow up on antigen studies noted above then see her quality system manager with consideration for a diagnostic bronchoscope Elevated troponin of unknow significance; present on admission; resolved -No reported chest pain and very mild elevation of troponin; possibly due to increased cardiac demand -BNP is elevated; EKG sinus rhythm with no ST changes -Trops trended down to negative . -Echo noted : EF normal Type II diabetes; present on admission; ongoing -Last A1c was 9.1 -Home medication: Metformin 1000 mg twice a day, Toujeo 140 units subcutaneous pm, and NovoLog 0-20 units subcutaneous 3 times a day before meals as Correction -patient will resume usual meds at discharge, she is aware of up and down blood sugars, she can manage this at home better. Acute normocytic hypochromic anemia and thrombocytosis; present on admission; ongoing -Patient discharged with a hemoglobin of 12.4 at the beginning of last month; currently ~ 9 - hard to say if its from bleed vs anemia of chronic disease as TIBC low, will get ferritin levels -Increased RDW shows adequate bone marrow response -Hemoccult pending - TIBC noted to be low, will get ferritin levels -Iron and B12/folate studies - normal Hypertension; present on admission; ongoing -Continue amlodipine Hypomagnesemia -replace with 2mg Hypoalbuminemia-systems auditor consult; replace below 2.0 Hyperlipidemia-hold statin for the moment Anxiety/depression-continue bupropion Disposition: Patient is being admitted to inpatient status with expected length of stay greater than two midnights due to severity of presentation, duration of treatment, and risks of adverse events disposition Full code PCP is Dr Montesinos, Manager Retirement at [facility], Dr. Pushpa Rodríguez Uses home O2 Exam Vital Signs (Last) Date Time Temp Pulse Resp B/P Pulse Ox O2 Delivery O2 Flow Rate FiO2 05/03/17 08:10 Supplement Oxygen 05/03/17 07:58 79 22 92 4.00 05/03/17 04:15 36.8 176/63 Exam Skin; war and dry, no rash HENT; well hydrated no lesions CV; regular no murmur Resp; few scattered wheezes with good air movement, much improved GI; soft non acute benign Test 04/28/17 13:00 04/28/17 13:43 04/28/17 15:39 04/28/17 20:06 Lactic Acid Level 1.7mmol/L (0.4-2.0) Magnesium Level 1.4mg/dL (1.6-2.6) Iron Level 34ug/dL (35-150) Total Iron Binding Capacity 248ug/dL (250-450) Percent Iron Saturation 14%sat (15-50) Unsaturated Iron Binding 213.6ug/dL Total Bilirubin 0.2mg/dL (0.0-1.2) Aspartate Amino Transf (AST/SGOT) 21U/L (0-50) Alanine Aminotransferase (ALT/SGPT) 21U/L (0-32) Alkaline Phosphatase 119U/L (25-165) Pro-B-Type Natriuretic Peptide 1027pg/mL (0-738) Total Protein 6.8g/dL (6.4-8.4) Albumin 2.8g/dL (3.4-5.0) Vitamin B12 Level 736pg/mL (211-946) Folate > 19.9ng/mL (>3.0) Ketones Negative (Negative) Urine Color Straw (YELLOW) Urine Appearance Hazy (CLEAR,HAZY) Urine pH 7.0 (5.0-8.0) Urine Specific Shepherd 1.005 (1.003-1.035) Urine Protein Negativemg/dL (NEG,TRACE) Urine Glucose (UA) Negativemg/dL (NEGATIVE) Urine Ketones Negativemg/dL (NEGATIVE) Urine Occult Blood Trace (NEGATIVE) Urine Nitrite Negative (NEGATIVE) Urine Bilirubin Negative (NEGATIVE) Urine Urobilinogen Normalmg/dL (NORMAL) Urine Leukocyte Esterase Negative (NEGATIVE) Urine RBC 0-2/hpf (0-2) Urine WBC 0-5/hpf (0-5) Urine Epithelial Cells Occasional/hpf (NONE-MOD) Urine Crystals None seen (NONE SEEN) Urine Bacteria None/hpf (NONE-FEW) Urine Hyaline Casts None/lpf (NONE) Urine Granular Casts None seen (NONE SEEN) Urine Waxy Casts None seen (NONE SEEN) Urine Red Blood Cell Casts None seen (NONE SEEN) Urine White Blood Cell Casts None seen (NONE SEEN) Urine Mucus None seen (None Seen) Urine Trichomonas None seen (NONE SEEN) Urine Yeast None (NONE SEEN) Urinalysis Comment None Urine Culture Reflexed Not indicated Urine Legionella pneumophilia Ag Negative (Negative) Hold Urine Received (Received) Test 04/29/17 03:10 04/30/17 05:30 05/01/17 06:50 05/01/17 13:46 Troponin T 0.010ug/L (0.0-0.011) Ferritin 103ng/mL (13-150) Vancomycin Level Trough 9.0mcg/mL White Blood Count 12.0th/mm3 (3.8-10.1) Red Blood Count 3.92mil/mm3 (3.90-5.20) Hemoglobin 9.7g/dL (12.0-15.6) Hematocrit 33.7% (35.0-46.0) Mean Corpuscular Volume 86.0fL (81-100) Mean Corpuscular Hemoglobin 24.7pg (27.0-35.0) Mean Corpuscular Hemoglobin Concent 28.8% (32.0-37.0) Red Cell Distribution Width 18.4% (12.3-15.4) Platelet Count 488bil/L (150-400) Neutrophils (%) (Auto) 90.1% (40-74) Lymphocytes (%) (Auto) 5.2% (14-46) Monocytes (%) (Auto) 3.6% (4-12) Eosinophils (%) (Auto) 0% (0-5) Basophils (%) (Auto) 0.1% (0-3) Sodium Level 139mEq/L (134-144) Potassium Level 5.1mEq/L (3.5-5.2) Chloride Level 94mEq/L (97-108) Carbon Dioxide Level 30mmol/L (18-29) Blood Urea Nitrogen 24mg/dL (8-27) Creatinine 0.84mg/dL (0.57-1.00) Estimat Glomerular Filtration Rate 94mL/min (>59) Glucose Level 296mg/dL (60-99) Calcium Level 9.2mg/dL (8.5-10.1) Procalcitonin 0.10ng/mL (0.00-0.08) Cryptococcus Antigen Negative (Negative) Test 05/03/17 06:25 Discharge Medications Discharge Medications Albuterol Neb Soln (Albuterol Neb Soln) 2.5 Mg/3 Ml Vial.neb 2.5 MG INHALATION BID (Reported) Amlodipine (Amlodipine) 5 Mg Tablet 5 MG PO QAM (Reported) Aspirin (Aspirin) 81 Mg Tablet 81 MG PO DAILY (Reported) Budesonide (Budesonide) 1 Mg/2 Ml Ampul.neb 1 MG IH BID (Reported) Bupropion ER (Bupropion ER) 200 Mg Tablet.er 200 MG PO BID (Reported) Insulin Aspart (NovoLOG U100 Insulin Vial) 100 U/Ml U 5-20 UNIT SUBQ TIDAC ( Reported) Insulin Glargine,Hum.rec.anlog (Toujeo Solostar) 300 Unit/Ml (1.5 Ml) Insuln.pen 140 UNIT SQ DAILY (Reported) Liraglutide (Victoza 3-Keagan) 0.6 Mg/0.1 Ml Pen.injctr 1.8 MG SQ HS (Reported) Metformin ER (Metformin ER) 500 Mg Tablet 1,000 MG PO BIDWM (Reported) Metoprolol Tartrate (Metoprolol Tartrate) 25 Mg Tablet 25 MG PO QAM (Reported) Omeprazole (Omeprazole) 20 Mg Capsule.dr 20 MG PO QAM (Reported) Pramipexole Dihydrochloride (Pramipexole Dihydrochloride) 0.25 Mg Tablet 0.25 MG PO TID (Reported) Pravastatin (Pravastatin) 80 Mg Tablet 80 MG PO HS (Reported) Prednisone (PredniSONE) 20 Mg Tablet 30 MG PO DAILY Prescribed by: Funmilayo CHRISTIANSON MD Tiotropium [place] (Spiriva) 18 Mcg Cap.w.dev 18 MCG IH QAM (Reported) As needed diphenhydrAMINE HCl (Benadryl) 25 Mg Capsule 25 MG PO HS PRN PRN (Reported) Followup Plan Follow-up plan Follow up with your quality system manager at [facility], Dr. Ruben Rodríguez,, May 12 Follow up with your primary care provider in one week Dr Montesinos. Discharge Diet: Heart Healthy, Diabetic Discharge Activity: Limited until seen by PCP Time spent 40 minutes time spent discharging patient home so far today. copies to: Joshua Montesinos D Geoffrey MD May 03, 2017 12:09
[2017-05-03 12:49] VITALS: PULSE 79; RESP 20; O2SAT 93
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
--- NOTE | 2017-05-03 14:04 | NUR ---
Social Work-discharge: Data:EMR reviewed. Pt is on day 5 of hospitalization for pneumonia per H&P. Pt is medically stable for discharge. Pt resides at home with her . Pt uses baseline O2 through [place]. SW received a call from Yenny at [facility] who states they are all set up with pt's trilogy, she just needs to be notified when pt discharges home. [place] called Yenny when discharge orders obtained and Yenny states they will follow up with pt at home to set this up. Pt and agreeable to plan. No other SW needs identified. All updated and agreeable to plan. Assessment:Pt who is independent at baseline. Plan:Pt to discharge home today via POV. Pt to continue with Home o2 and [facility] to set up home Trilogy. No other SW needs identified. All updated and agreeable to plan. JAYDON Blackwell
== END 2017-05-03 13:24 | disposition home or self-care (01) | DRG 190 ==
LOC: SED 12:26 → MPC 15:13
PROVIDERS: ADMIT Internal Medicine; ATTEND Hospitalist
PROC: 4A033R1 Measurement of Arterial Saturation, Peripheral, Percutaneous Approach (ICD-10-PCS; principal; 2017-05-01)
DX: J44.0 Chronic obstructive pulmonary disease with (acute) lower respiratory infection (principal); J96.21 Acute and chronic respiratory failure with hypoxia; J18.8 Other pneumonia, unspecified organism; J96.22 Acute and chronic respiratory failure with hypercapnia; J44.1 Chronic obstructive pulmonary disease with (acute) exacerbation; E11.9 Type 2 diabetes mellitus without complications; E83.42 Hypomagnesemia; E78.5 Hyperlipidemia, unspecified; M19.042 Primary osteoarthritis, left hand; D47.3 Essential (hemorrhagic) thrombocythemia; F41.8 Other specified anxiety disorders; M19.041 Primary osteoarthritis, right hand; D50.9 Iron deficiency anemia, unspecified; Z79.82 Long term (current) use of aspirin; Z87.891 Personal history of nicotine dependence; Z79.4 Long term (current) use of insulin; Z95.2 Presence of prosthetic heart valve; Z79.51 Long term (current) use of inhaled steroids; Z99.81 Dependence on supplemental oxygen

== ENCOUNTER 2017-05-26 04:55 | Emergency (ER) | payer MEDICARE ==
[~2017-05-26] VITALS: Ht 160 cm; Wt 86.4 kg
[~2017-05-26 04:55] MED LIST changes: +ASPI-973 PO; -CLOB50SO TP; -DEXT1DRO8 BOTH_EYES; +DIPH25CA6 PO; -FURO40TA4 PO; -GUAI600T86 PO; -IBUP200C PO; +INSU100C8 SUBQ; -PRAM0.252 PO; -PRED-508 PO; -Vancomycin Dose per Pharmacist XX ONE
[2017-05-26 05:00] VITALS: BP 149/83; PULSE 86; RESP 18; O2SAT 89
--- NOTE | 2017-05-26 06:09 | ED.REPORT ---
HPI-General Illness Date of Service May 26, 2017 ED Provider: Varun Hwang MD Pt is a 77 year old female with a history of type II DM and COPD who presents to the ED complaining of a constant and dull right neck pain around the shoulder blade after a ground level fall prior to arrival. She c/o associated nose pain and nose laceration. She denies lightheadedness, LOC, headache, chest pain, SOB, fever, chills, diarrhea, constipation, hematuria, and hematochezia. The pt reports that she lost her balance when getting up from the toilet, causing her to fall face down and injury her nose. Her reports that she may have hit her head on the cabinet. She rates her pain as a 2/10, and her pain is not exacerbated or relieved by anything. Pt reports that she is not on blood thinners. Nursing Notes Stated Complaint: FELL HIT NOSE,LACERATION Chief Complaint: Laceration Nursing Notes Reviewed: Yes Allergies: Coded Allergies: morphine (Verified Allergy, Intermediate, itchy rash all over body, ) Scheduled Albuterol Neb Soln (Albuterol Neb Soln) 2.5 Mg/3 Ml Vial.neb 2.5 MG INHALATION BID Amlodipine (Amlodipine) 5 Mg Tablet 5 MG PO QAM Aspirin (Aspirin) 81 Mg Tablet 81 MG PO DAILY Budesonide (Budesonide) 1 Mg/2 Ml Ampul.neb 1 MG IH BID Bupropion ER (Bupropion ER) 200 Mg Tablet.er 200 MG PO BID Insulin Aspart (NovoLOG U100 Insulin Vial) 100 U/Ml U 5-20 UNIT SUBQ TIDAC Insulin Glargine,Hum.rec.anlog (Toujeo Solostar) 300 Unit/Ml (1.5 Ml) Insuln.pen 140 UNIT SQ DAILY Liraglutide (Victoza 3-Keagan) 0.6 Mg/0.1 Ml Pen.injctr 1.8 MG SQ HS Metformin ER (Metformin ER) 500 Mg Tablet 1,000 MG PO BIDWM Metoprolol Tartrate (Metoprolol Tartrate) 25 Mg Tablet 25 MG PO QAM Omeprazole (Omeprazole) 20 Mg Capsule.dr 20 MG PO QAM Pramipexole Dihydrochloride (Pramipexole Dihydrochloride) 0.25 Mg Tablet 0.25 MG PO TID Pravastatin (Pravastatin) 80 Mg Tablet 80 MG PO HS Prednisone (PredniSONE) 20 Mg Tablet 30 MG PO DAILY Tiotropium [place] (Spiriva) 18 Mcg Cap.w.dev 18 MCG IH QAM Scheduled PRN diphenhydrAMINE HCl (Benadryl) 25 Mg Capsule 25 MG PO HS PRN PRN General Time Seen by MD: 05:31 Chief Complaint Other (nose laceration) Hx Obtained From: Patient Arrived By: Walk-in Onset Occurred: Just prior to arrival Symptom Duration: Since onset Location: : Nose Quality: Painful Radiation: : Does not radiate Severity: Current: Moderate Severity: Maximum: Moderate Recent Healthcare: Recent doctor visit Similar Sx Previous: No Past Medical History Past Medical History Pneumonia x2 requiring hospitalization and intubation Obesity Reports: COPD, Diabetes mellitus (Type II) Reports: Urinary tract infection Past Surgical History Valve replacement Left knee replacement Family History History of colon cancer Smoking History Former Smoker Social History Alcohol Use: Denies alcohol use Drug Use: Denies drug use Other Social History: Good social support, , Local resident Ambulatory Status Independent Review of Systems + Nose pain + Nose laceration Full Review of Systems Constitutional: Denies: Chills, Fever Respiratory: Denies: Shortness of breath Cardiovascular: Denies: Chest pain GI: Denies: Constipation, Diarrhea, Hematochezia Female: Denies: Hematuria Musculoskeletal: Reports: Neck pain Neurologic: Denies: Change LOC, Headache, Lightheaded Complete sys rev & neg: except as marked. Physical Exam Nursing note and vitals reviewed. Constitutional: Well-developed, well-nourished. Not diaphoretic. Head: Normocephalic and atraumatic. Mid-face is stable. No malocclusion. Nose: 3 cm linear vertical oriented laceration just to the right side of the midline. Mouth/Throat: Oropharynx is clear and moist. No oropharyngeal exudate. Eyes: EOM are normal. Pupils are equal, round, and reactive to light. Neck: Supple, no tracheal deviation.No cervical spine tenderness. Cardiovascular: Normal rate, regular rhythm. Equal and intact distal pulses throughout. Pulmonary/Chest: Effort normal and breath sounds normal. No respiratory distress. Abdominal: Soft. No distension. There is no tenderness, rebound, or guarding. Bowel sounds present. Musculoskeletal: Range of motion grossly intact, moving all extremities. No edema or tenderness appreciated. Neurological: AOx3. Grossly nonfocal exam. Strength and sensation intact and equal to bilateral upper and lower extremities. Normal finger to nose testing. No pronator drift. Negative Romberg, unremarkable gait. Skin: Warm and dry, no rashes or pallor appreciated. Psychiatric: Appropriate mood and affect. Behavior appears normal. Vital Signs Vital Signs Date Time Temp Pulse Resp B/P Pulse Ox O2 Delivery O2 Flow Rate FiO2 05/26/17 08:53 91 20 138/87 94 Nasal Cannula 2 05/26/17 06:44 36.9 88 18 142/80 96 Nasal Cannula 3 05/26/17 05:00 36.8 86 18 149/83 89 Nasal Cannula 3 Initial VS: Reviewed Interpretation & Diagnostics CT MAXILLOFACIAL: CONCLUSION: No acute maxillofacial fractures. Transmitted to the ED at 06:09 by Snehal Rankin M.D CT Head Interpretation CONCLUSION: No acute intracranial abnormality. Transmitted to the ED at 06:28 by Snehal Rankin M.D. Study: Head CT no contrast Interpretation / Wet Read by: Interpret - Radiologist CT C-Spine Interpretation CONCLUSION: No acute cervical spine fracture. Transmitted to the ED at 06:13 by Snehal Rankin M.D. Interpretation / Wet Read by: Interpret - Radiologist Procedures Laceration Management Time: 08:11 Procedure Performed by: ED physician Consent / Setup / Site Prep: Consent from patient, Time-out performed, Hand hygiene observed, Stand sterile technique Location of Wound: Just to the right side of the midline of the nose Wound Length: 3 cm Local Anesthesia: Lidocaine w epi 1% Wound Preparation: Normal saline Debridement: None Irrigation: Copious Repair Skin: ___ O (5), Nylon (ethilon) # Sutures - Skin: 2 (horizontal mattress) Closure Layers: 1 Suture Technique: Mattress (horizontal) Post-Procedure / Complications: Antibiotic oint applied, Dressing applied, No complications, Condition improved, Tolerated procedure well, Patient stable Re-Eval/Medical Decision Med Decision/Clinical Course In summary, 77-year-old female presenting to the ED for evaluation after a fall onto her face earlier this morning. She was not feeling lightheaded, nor was she having any chest pain or palpitations prior to the incident; appears to be a clear mechanical fall where she slipped while she was getting off the toilet. She did not feel lightheaded at any time. No loss of consciousness. She does not have any point midline tenderness to palpation to the spine and did not sustain any other injuries. CT scan of the patient's head, cervical spine, and face do not demonstrate any acute fractures or abnormalities. Aside from the laceration on her nose, she is asymptomatic at this time. I do not think she needs a further workup for her falls as she describes a clear mechanical etiology and has no complaints. Laceration repaired as per above. Plan discharge home with very careful return precautions, PCP follow-up in the next several days, and suture removal in 10-14 days. Patient agreeable to the plan as stated, no further questions. Source of Hx: Old records Time of Eval: 06:42 Re-Evaluation/Progress Note: Informed pt of plan for treatment. Pt understands and agrees with plan for treatment. All questions addressed. Time of Eval: 08:10 Re-Evaluation/Progress Note: Pt rechecked. Repaired pt's laceration with her consent. Informed pt of plan for discharge. Pt understands and agrees with plan for discharge. F/U instructions and RTER warnings given. All questions addressed. Counseled Regarding: Diagnosis, Need for follow-up, When/why to return to ED Discharge & Departure Primary Impression: Facial laceration Encounter type: initial encounter Qualified Code: S01.81XA - Laceration without foreign body of other part of head, initial encounter Additional Impressions: Head trauma Encounter type: initial encounter Qualified Code: S09.90XA - Unspecified injury of head, initial encounter Fall Encounter type: initial encounter Qualified Code: W19.XXXA - Unspecified fall, initial encounter Disposition: Home Discharge Condition All VS Reviewed: Yes Condition: Stable Patient Instructions: Facial Laceration (ED), Fall Prevention for Older Adults (ED), Head Injury (ED), Nasal Contusion (ED) Additional Instructions: Thank you for allowing us to be a part of your care in the ED today. Your emergency department results, including CT scans, are reassuring. Keep your wound clean and dry for the first day. Try to keep your wound dry until you have the stitches removed. Apply antibiotic ointment to your wound. Have the stitches removed in 10-14 days by your doctor or here in the ED. Please schedule a follow up appointment with your primary care physician tomorrow for a recheck. Please return to the emergency department for any new or worsening symptoms including any vision changes, fever, drainage from the wound, nausea, vomiting, abdominal pain, shortness of breath, chest pain, one sided weakness/numbness, vision changes, fevers, or chills, or if there's anything else of concern to you. Referrals: Joshua Montesinos (PCP) Christine Attestation Portions of this note were transcribed by Lisa Garrido. I, Dr. Hwang personally performed the history, physical exam and medical decision-making; I reviewed and confirmed the accuracy of the information in the transcribed note. Signed by: Christine Lema, 05/26/17. copies to: Joshua Montesinos William B MD May 26, 2017 06:09 Lisa Sawyer May 26, 2017 06:11
[2017-05-26 06:44] VITALS: BP 142/80; PULSE 88; RESP 18; O2SAT 96
--- NOTE | 2017-05-26 07:45 | DRSVH ---
PROCEDURE: CT BRAIN WITHOUT CONTRAST ([id number]) INDICATIONS: fall, head trauma TECHNIQUE: Noncontrast 4.5 mm thick angled axial sections acquired from the foramen magnum to the vertex, with c oronal reformats. COMPARISON: None. FINDINGS: Image quality: Excellent. CSF spaces: Basal cisterns are patent. No extra-axial fluid collections. The ventricles are symmet bunny in size and shape. Brain: No intracranial bleeds or masses. There is cerebral volume loss for age, with resultant vent ricular and sulcal prominence. There are periventricular and deep white matter chronic small vessel ischemic changes. There is intracranial internal carotid artery atherosclerosis. Skull and face: Calvarium and visualized facial bones appear intact, without suspicious lesions. Hy perostosis frontalis. Sinuses: Mastoids are clear. There is a 1.6 cm oval mass in the left ethmoid. IMPRESSION: 1. No acute intracranial abnormalities. 2. Cerebral volume loss and chronic microvascular ischemic changes. 3. A 1.6 cm oval shaped mass in the left ethmoid. Differential diagnosis includes a mucous retention cyst versus polyp. ENT consultation suggested. No significant discrepancy with the lieutenant shift supervisor radiology preliminary report. Dictated by: Jose Vázquez M.D. on 05/26/2017 at 7:43 Transcribed by: JAVAD on 05/26/2017 at 7:44 Approved by: Jose Vázquez M.D. on 05/26/2017 at 12:07
--- NOTE | 2017-05-26 07:46 | DRSVH ---
PROCEDURE: CT CERVICAL SPINE WITHOUT CONTRAST ([id number]) INDICATIONS: fall, neck pain TECHNIQUE: Noncontrast 3 mm thick sections acquired from the skull base to the T4 level. Sagittal and coronal r eformats were then constructed. For radiation dose reduction, the following was used: automated exp osure control, adjustment of mA and/or kV according to patient size. COMPARISON: None. FINDINGS: Image quality: Excellent. Bones: There is grade 1 anterolisthesis of C3 over C4. No fractures or dislocations. Visualized sup erior ribs are intact. Soft tissues: Prevertebral soft tissues are normal in thickness. No paravertebral hematomas. No ap ical pneumothoraces. IMPRESSION: 1. No fractures. 2. Degenerative changes in cervical spine. No significant discrepancy with the enrollment coordinator radiology preliminary report. Dictated by: Jose Vázquez M.D. on 05/26/2017 at 7:45 Transcribed by: JAVAD on 05/26/2017 at 7:46 Approved by: Jose Vázquez M.D. on 05/26/2017 at 12:05
--- NOTE | 2017-05-26 07:48 | DRSVH ---
PROCEDURE: CT FACE WITHOUT CONTRAST ([id number]) INDICATIONS: fall, neck pain TECHNIQUE: Noncontrast 1.5 mm thick axial images acquired from the mandible through the frontal sinuses, with co bita and sagittal reformatting. For radiation dose reduction, the following was used: automated ex posure control. COMPARISON: None. FINDINGS: Image quality: Excellent. Bones and teeth: Orbital fry are intact. Sinus fry show no fracture or deformity. Nasal bones and septum are intact. Visualized portions of the mandible demonstrate no fractures or subluxation. Zygomatic arches are intact. Pterygoid plates are intact. Visualized portions of the skull base an d auditory canals are intact. Hyperostosis frontalis. Sinuses: Paranasal sinuses are aerated, without fluid levels, mucosal thickening, or mucoceles. Mas toid air cells are aerated. Soft tissues: No edema, masses, or fluid collections. No enlarged lymph nodes. No soft tissue lace rations or debris. Vascular: Visualized vascular structures appear normal in the absence of contrast. Bony vascular fo ramina and canals are intact. IMPRESSION: No acute facial bone injuries. No significant discrepancy with the fast food shift lead radiology preliminary report. Dictated by: Jose Vázquez M.D. on 05/26/2017 at 7:46 Transcribed by: JAVAD on 05/26/2017 at 7:47 Approved by: Jose Vázquez M.D. on 05/26/2017 at 12:05
[2017-05-26] MEDS ORDERED: Lidocaine 1%-Epi 1:100,000 20 mL Inj ONE (08:09)
[2017-05-26 08:53] VITALS: BP 138/87; PULSE 91; RESP 20; O2SAT 94
== END 2017-05-26 08:54 | disposition home or self-care (01) ==
LOC: SED 04:55
DX: S01.81XA Laceration without foreign body of other part of head, initial encounter (principal); S09.8XXA Other specified injuries of head, initial encounter; M54.2 Cervicalgia; W01.0XXA Fall on same level from slipping, tripping and stumbling without subsequent striking against object, initial encounter; Y93.89 Activity, other specified; Y99.8 Other external cause status; Y92.012 Bathroom of single-family (private) house as the place of occurrence of the external cause; E11.9 Type 2 diabetes mellitus without complications; J44.9 Chronic obstructive pulmonary disease, unspecified; Z99.81 Dependence on supplemental oxygen; Z87.440 Personal history of urinary (tract) infections; Z87.891 Personal history of nicotine dependence; Z95.2 Presence of prosthetic heart valve; Z96.652 Presence of left artificial knee joint; Z79.51 Long term (current) use of inhaled steroids; Z79.82 Long term (current) use of aspirin; Z79.4 Long term (current) use of insulin; Z79.84 Long term (current) use of oral hypoglycemic drugs; Z79.52 Long term (current) use of systemic steroids; Z88.5 Allergy status to narcotic agent
CPT/HCPCS: 12011; 70450; 70486; 72125; 96372; 99284; J1885